=== PATIENT | female | born 1985 | race Caucasian/White ===

== ENCOUNTER 2017-10-19 14:10 | Inpatient (IN) ==
--- OUTSIDE RECORDS SUMMARY | 2017-10-19 14:14 | External Medical Summary | Continuity of Care Document ---
:1985 Author Organization [email or web address] Address [address] [place], [place] [id number] Phone Care Team Providers Name Role Phone Grabiel Epps MD Unavailable Unavailable Allergies, Adverse Reactions, Alerts Substance Reaction Severity Status No Known Drug Allergies Unknown Active Medications Medication Instructions Dosage Effective Dates Status Comments (start - stop) Vitamin take 1 tablet by Not Available - Active tablet oral route every day Prometrium 200 mg insert 1 tablet - No Longer capsule into the vagina 3 Active times daily until 12 weeks of pregnacy Problems Condition Effective Dates (start - stop) Clinical Status Complete or unsp spontaneous - without complication Complete or unsp spontaneous - without complication Pap Smear Screening, Cervix - Encounter for test, result unknown Irregular Menses Personal history of comp of preg, chldbrth and the puerp 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 14 weeks gestation of - Threatened 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 Pap Smear Screening, Cervix Encounter for test, result unknown Encounter for test, result - unknown Active Procedures Procedure Date Office/outpatient visit,est, low HCG, Quantitative Results Test Name Date and Time Measure Units Reference Range Abnormal Flag Comments Panel Description: Choriogonadotropin.beta subunit [Units/volume] in Serum or Plasma HCG, TOTAL, QN 15:16:00 174 mIU/mL H Reference RangeNon or premenopausal <5Postmenopausal <10 Values from different assay methods may vary.The use of this assay to monitor or to diagnose patients with cancer or any condition unrelatedto has not been cleared or approved bythe FDA or the deliverer pharmacy of the assay.REPORT COMMENT:FASTING:NOAN UPDATE OR CORRECTION HAS BEEN MADE TO NAMETest performed at [facility] [id number] [place] [address]Zezaituq: ADAN ASHER DO,MPH Advance Directives Directive Yes / No Effective Date File Name Unknown Encounters Encounter Practice Location Reason(s) Diagnoses Date Provider Care Team Description For Visit Members Umesh [place] Encounter for Feb- Sobbing Referring In Women test, [place]. Provider: Basilio HOLLIDAY, result unknown 7 [address] [facility] G, [address], [address] [place], [place], [address], [id number], [address], [place], [address]. [place], tel:+ tel:[phone], [phone], [place]. tel: [phone] Umesh [place] Encounter for Oct-1 Sobbing In Womens test, 0 [place]. Basilio HOLLIDAY, result unknown 7 700 [facility] [address], [place], [place], [address] [id number], [address], [place], tel:[phone] [place], [phone], [place]. tel:[phone] Office/outpa Umesh Frazier generic Encounter for Oct-0 Sobbing Referring tient In Womens (chief test, [place]. Provider: visit,est, Basilio HOLLIDAY, complaint) result unknown 7 700 Tanya low [address] [facility] G, [address], [address] [place], [place], [address], [id number], [address], [place], [address]. [place], tel:[phone] tel:[phone] [place], [id number], [place]. tel: [phone] Umesh Frazier Recurrent Jerardo-2 Garcia In Womens loss Lois. Basilio HOLLIDAY, 7 700 [address], [place], [address], [id number], [place], [place], tel:+ [phone] , [place]. tel:[phone] [facility] [place] Complete or unsp Feb-1 Garcia Referring In Womens spontaneous 3-201 Lois. Provider: Basilio HOLLIDAY, without 7 [address] PO Box complicationCompl [facility], 1522, ete or unsp [address], spontaneous [place], without [address], [place], [id number], [place], [address]. [place], tel:+ tel:[phone] , [place]. tel:[phone] [facility] [place] Complete or unsp Feb-1 Garcia Referring In Womens Ultrasound spontaneous -201 Lois. Provider: Basilio HOLLIDAY, without 7 700 Tanya PO Box [id number] [facility], 1522, weeks gestation [address], of [place], [address], [place], [id number], [place], [address]. [place], tel:+ tel:[phone] , [place]. tel: [phone] [facility] [place] Threatened Feb-0 Garcia Referring In Womens 7-201 Lois. Provider: Basilio HOLLIDAY, 7 [address] Box [facility], [address], [address] [place], [place], [address], [place], [id number], [place], [address]. [place], tel:+ tel:+ [phone] , [place]. tel:[phone] [facility] [place] Irregular Feb-0 Garcia Referring In Womens MensesPersonal 3-201 Lois. Provider: Basilio HOLLIDAY, history of comp 7 700 [address]anya PO Box of preg, chldbrth [facility], 1522, and the puerp Center [address] [place], [place], [address], [place], [id number], [place], [address]. [place], tel: tel: [phone] , [place]. 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 Provider: Health MG, (routine) w/o abn 6 700 Tanya PO Box [facility] [place] [facility], [address], Screening, [address], CervixPap Smear , [place], [place], Screening, Cervix [address], [place], [id number], [place], [address]. [place], tel: tel:[phone] , [place]. tel: [phone] Umesh [place] Dec- Darrian Referring In Womens 7-201 Cassia. Provider: Basilio HOLLIDAY, 4 700 [address] PO Box Medical [facility], Center [address], [address], [facility], [address], [place] [id number], [facility], [place], tel:[phone] [place], , [place]. [id number]. tel: tel: [phone] Umesh [place] Mar- [place] Referring In Womens 8-201 Gracy. Provider: Basilio HOLLIDAY, 4 700 [address] PO Box Medical [facility] 1522, Center [address], [address], [facility], [address], [place] [id number], [facility], [place], tel:[phone] [place], , [place]. [id number]. tel: tel: [phone] Umesh [place] Dec-0 [place] In Womens 6-201 Gracy. Health MG, 2 700 [address] Medical [address], [facility] [place], [address], [id number], [place], [place], tel:[phone] , [place]. tel: [phone] Umesh [place] Dec-0 [place] In Womens 8-201 Gracy. [facility] [place], 1 700 [facility] [address], [place] [address], [place], [address], [id number], [place], [place], tel:[phone] , [place]. tel: [phone] Family History Family Member Diagnosis Age At Onset Paternal Grandmother Cancer, breast Maternal Grandmother Cancer, breast Immunizations Vaccine Date Status Comments Influenza, injectable, completed Source: New Immunization Record quadrivalent, preservative free, 3 yrs or older Tdap completed Source: New Immunization Record Payers Payer name Insurance type Covered republican ID Authorization(s) [employer] [place] [id number] [employer] [place] [id number] [employer] [place] [id number] Social History Type Description Quantity Date Captured Alcohol Use Details No Caffeine Use Details Unknown Tobacco Use Status Never smoked tobacco Smoking Status Never smoker Vital Signs Date / Height Weight BMI Pulse Blood Temperature Respiratory Body Head BMI Time: Rate Pressure Rate Surface Circumference percentile Area 134.70 2017 lbs 2:52 PM Chief Complaint And Reason For Visit Unknown Chief Complaint And Reason For Visit Reason For Referral Reason For Referral Unknown Plan Of Care Date Type Action Status Appointment Bhumika Ghotra BOOKED Future Order: Radiology Order Ultrasound OB, Transvaginal ([id number] ) Ordered Date Type Problem Goal Intervention Status Start Date Unknown. History Of Present Illness Encounter Date Complaint History Of Present Illness generic 31 y/o with history of 1st trimesters loss reports for confirmation of . Was planning and has been on PNV. Denies pain or bleeding. Has used vaginal progesterone in past pregnancies to support and prevent early loss. Denies N/V, Constipation or Diarrhea. Denies Dysuria. Functional Status Encounter Date Functional Assessment Cognitive Assessment Unknown Medications Administered Medication Instructions Dosage Effective Dates (start - stop) Status Comments Drug Treatment Unknown Instructions Date Instruction Additional Information Unknown
--- OUTSIDE RECORDS SUMMARY | 2017-10-19 14:14 | External Medical Summary | Continuity of Care Document ---
:1985 Author Organization [facility] Address [address] [place], [place] [id number] Phone Care Team Providers Name Role Phone Grabiel Epps MD Unavailable Unavailable Allergies, Adverse Reactions, Alerts Substance Reaction Severity Status No Known Drug Allergies Unknown Active Medications Medication Instructions Dosage Effective Dates Status Comments (start - stop) Vitamin take 1 tablet by Not Available - Active tablet oral route every day aspirin 81 mg chew 1 tablet by 81 MG - Active chewable tablet oral route every day Unisom - Active (doxylamine) 25 mg tablet Problems Condition Effective Dates (start - stop) Clinical Status Complete or unsp spontaneous - without complication Complete or unsp spontaneous - without complication Pap Smear Screening, Cervix - Suprvsn of preg w poor reprodctv or - obstet hx, second tri Supervision of other high risk - pregnancies, second trimester Maternal care for oth - abnormality and damage, unsp 27 weeks gestation of - Suprvsn of preg w poor reprodctv or - obstet hx, second tri Supervision of other high risk - pregnancies, second trimester Preg care for patient w recurrent preg - loss, unsp trimester 15 weeks gestation of - Suprvsn of preg w poor reprodctv or - obstet hx, second tri Supervision of other high risk - pregnancies, second trimester Preg care for patient w recurrent preg - loss, unsp trimester 22 weeks gestation of - Irregular Menses Personal history of comp of preg, chldbrth and the puerp 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 14 weeks gestation of - Suprvsn of preg w poor reprodctv or - obstet hx, first tri Supervision of other high risk - pregnancies, first trimester Preg care for patient w recurrent preg - loss, unsp trimester 11 weeks gestation of - Suprvsn of preg w poor reprodctv or - obstet hx, second tri Supervision of other high risk - pregnancies, second trimester Preg care for patient w recurrent preg - loss, unsp trimester 18 weeks gestation of - Suprvsn of preg w poor reprodctv or - obstet hx, second tri Supervision of other high risk - pregnancies, second trimester 27 weeks gestation of - Suprvsn of preg w poor reprodctv or - obstet hx, third tri Supervision of other high risk - pregnancies, third trimester Low weight gain in , third - trimester 29 weeks gestation of - Suprvsn of preg w poor reprodctv or - obstet hx, third tri Supervision of other high risk - pregnancies, third trimester Low weight gain in , third - trimester Preg care for patient w recurrent preg - loss, unsp trimester Suprvsn of preg w poor reprodctv or - obstet history, unsp tri Supervision of other high risk - pregnancies, first trimester Preg care for patient w recurrent preg - loss, unsp trimester Less than 8 weeks gestation of - Supervision of other high risk - pregnancies, second trimester Preg care for patient w recurrent preg - loss, unsp trimester 18 weeks gestation of - Supervision of other high risk - pregnancies, third trimester Maternal care for oth - abnormality and damage, unsp Matern care for oth or susp poor fetl - grth, third tri, unsp 30 weeks gestation of - Threatened 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) w/o abn findings Pap Smear Screening, Cervix Encounter for test, result unknown Encounter for test, result unknown Encounter for test, result - unknown Active Procedures Procedure Date Ultrasnd preg uterus, flwup/repeat Echo exam of heart Doppler color flow mapping Results Test Name Date and Time Measure Units Reference Range Abnormal Flag Comments Unknown Advance Directives Directive Yes / No Effective Date File Name Unknown Encounters Encounter Practice Location Reason(s) Diagnoses Date Provider Care Team Description For Visit [facility] Ellisvsn of preg w Aug- Sobbing Referring In Womens poor reprodctv or 2-201 Stanley. Provider: Basilio HOLLIDAY, obstet hx, third [address] Box triSupervision of [facility], 1522, other high risk Center [address], pregnancies, [place], [place], third [address], , trimesterLow 120[place], [address]. [place] weight gain in [place], tel: tel: , third [place], [phone] trimesterPreg [address], care for patient [place]. w recurrent preg tel: loss, unsp [phone] trimester [facility] Supervision of Aug- Sobbing Referring In Womens Ultrasound other high risk Stanley. Provider: Basilio HOLLIDAY, pregnancies, 8 700 Tanya PO Box third [facility], 1522, trimesterMaternal Center [address], care [place], abnormality [address], [id number], and damage, 120[place], [address]. [place] unspMatern care [place], tel: tel: for oth or susp [place], [phone] poor fetl grth, [address], third tri, unsp30 [place]. weeks gestation tel:[phone] of [phone] [facility] Suprvsn of preg w Apr-0 Sobbing Referring In Womens poor reprodctv or 6 Reggie. Provider: Basilio HOLLIDAY, obstet hx, third 8 700 Tanya PO Box triSupervision of [facility], 1522, other high risk Center [address], pregnancies, [address], [place], [place], third [address], [id number], [place] 120[place], [address]. [place] weight gain in [place], tel:+ tel: , third [place], [phone] [id number] weeks [address], gestation of [place]. tel: [phone] [facility] Suprvsn of preg w Mar-2 Sobbing Referring In Womens poor reprodctv or 2 Reggie. Provider: horacio Penaet hx, second 8 700 [address] PO Box triSupervision of [facility], 1522, other high risk Center [address], pregnancies, [address], [place], [place], second [address], [id number], [id number] weeks 120, [place], [address]. [place] gestation of [place], tel:+ tel: [place], [phone], [place]. tel: [phone] [facility] Suprvsn of preg w Mar-2 Sobbing Referring In Womens Ultrasound poor reprodctv or Reggie. Provider: Basilio HOLLIDAY obstet hx, second 8 700 Tanya PO Box triSupervision of [facility], 1522, other high risk Center [address], pregnancies, [address], [place], second [address], [id number], trimester[place] 120[place], [address]. [place] care for asher [place], tel:+ tel:+2 abnormality [place], [phone] and damage, [address], unsp27 weeks [place]. gestation of tel: [phone] [facility] Suprvsn of preg w Feb-1 Sobbing Referring In Womens poor reprodctv or 9 Stanley. Provider: Basilio HOLLIDAY, obstet hx, second 8 700 Tanya PO Box triSupervision of [facility], 1522, other high risk Center [address], pregnancies, [address], [place], second [address], [id number], trimesterPreg 120[place], [address]. [place] care for patient [place], tel:+ tel:[phone] w recurrent preg [place], [phone] 657984 loss, unsp [address], [id number] weeks [place]. gestation of tel: [phone] [facility] Supervision of Sobbing Referring In Womens other high risk Stanley. Provider: Basilio HOLLIDAY, pregnancies, 8 [address] PO Box second Medical [facility], 1522, trimesterPreg Center [address], care for patient Kayce [place], [place], w recurrent preg [address], [id number], loss, unsp 120[place], [address]. [place] [id number] weeks [place], tel:+ tel:+3162 gestation of [place], [phone] [address], [place]. tel: [phone] [facility] Suprvsn of preg w Sobbing Referring In Womens Ultrasound poor reprodctv or Stanley. Provider: Basilio HOLLIDAY, obstet hx, second 8 700 [address]anya PO Box triSupervision of [facility], 1522, other high risk Center [address], pregnancies, Drive, [place], [place], second [address], [id number], trimesterPreg 120[place], [address]. [place] care for patient [place], tel:+ tel:+[phone] w recurrent preg [place], [phone] loss, unsp [address], weeks [place]. gestation of tel: [phone] [facility] Suprvsn of preg w Sobbing Referring In Womens poor reprodctv or Stanley. Provider: Basilio HOLLIDAY, obstet hx, second 7 700 Tanya PO Box triSupervision of [facility], 1522, other high risk Center [address], pregnancies, Drive, [place], second [address], [id number], trimesterPreg 120[place], [address]. [place] care for patient [place], tel:+ tel:+3162 w recurrent preg [place], [phone] 916238 loss, unsp [address], [id number] weeks [place]. gestation of tel:+06-25 [phone] [facility] Suprvsn of preg w Nov-3 Sobbing Referring In Womens poor reprodctv or 0-201 Reggie. Provider: Basilio HOLLIDYA, obstet hx, first 7 700 Tanya PO Box triSupervision of [facility] G, 1522, other high risk Center [address], pregnancies, Drive, [place], [place], first [address], [id number], trimesterPreg 120[place], [address]. [place] care for patient [place], tel:+ tel:+[phone] w recurrent preg [place], [phone] 847010 loss, unsp [address], [id number] weeks [place]. gestation of tel:[phone] [facility] Suprvsn of preg w Nov-0 Sobbing Referring In Womens poor reprodctv or 6-201 Reggie. Provider: Basilio HOLLIDAY, obstet history, 7 700 [facility] Box unsp Medical Sob[place] L, 1522, triSupervision of Center [address], other high risk Drive, Medical [place], pregnancies, Suite Center [id number], first [address], Drive [place] trimesterPreg [place], [address], tel:+2 care for patient [place], [place] preg [address], [place], [address]. loss, unsp [place]. tel: trimesterLess tel: [phone] than 8 weeks [phone] gestation of [facility] Encounter for Oct-1 Sobbing Referring In Womens test, 1-201 Stanley. Provider: Basilio HOLLIDAY, result unknown 7 700 [facility] PO Box Medical [place] G, 1522, Center [address], [address], [place], [place], [address], [id number], 120, [place], [address]. [place], tel:+ tel:+3162 [place], [phone], [place]. tel: [phone] Umesh [place] Encounter for Oct-1 Sobbing In Womens test, 0-201 Reggie. Basilio HOLLIDAY, result unknown 7 700 PO Box Medical 1522, Center [place], [place], Suite [id number], 120, [place], [place]: [place], [address], [place]. tel: [phone] [facility] Encounter for Oct-0 Sobbing Referring In Womens test, 9-201 Reggie. Provider: Basilio HOLLIDAY, result unknown 7 700 Tanya PO Box [facility], 1522, Center [address] [facility], [place], [address], [id number], 120, [place], [address]. [place], tel: tel: [place], [phone], [place]. tel: [phone] [facility] Recurrent Jerardo-2 Garcia In Womens loss 9-201 Lois. Basilio HOLLIDAY, 7 700 PO Box Medical 1522, [facility], Laith Santiago, 120, , [place], [place], tel:[phone] , [place]. tel: [phone] [facility] Complete or unsp Feb-1 Garcia Referring In Womens spontaneous 3-201 Lois. Provider: Basilio HOLLIDAY, without 7 700 [address] PO Box complicationCompl [facility], 1522, ete or unsp Center [address], spontaneous Laith [place], without 120, [address], , [place], [address]. [place], tel: tel: [phone] , [place]. tel: [phone] [facility] Complete or unsp Feb-1 Garcia Referring In Womens Ultrasound spontaneous 3-201 Lois. Provider: Basilio HOLLIDAY, without 7 700 Tanya PO Box [id number] [facility], 1522, weeks gestation Center [address], of Laith [place], 120, [address], [id number], [place], [address]. [place], tel: tel:[phone] , [place]. tel: [phone] [facility] Threatened Feb-0 Garcia Referring In Womens 7 Lois. Provider: Basilio HOLLIDAY, 7 700 Tanya PO Box [facility], 1522, Center [address], CHARLES [place], 120, [address], , [place], [address]. [place], tel: tel: [phone] , [place]. tel: [phone] Umesh [place] Irregular Feb-0 Garcia Referring In Womens MensesPersonal 3- Lois. Provider: Basilio HOLLIDAY, history of comp 7 700 Tanya PO Box of preg, [facility], 1522, and the puerp Center [address], CHARLES Nelson, 120, [address], [id number], [place], [address]. [place], tel: tel:[phone] , [place]. tel: [phone] [facility] Encntr for ob gyn Feb- Sagastume Referring In Womens exam (general) Carrie. Provider: Basilio HOLLIDAY, (routine) w/o abn 6 700 [address]anya PO Box findingsPap Smear [facility], 1522, Screening, Center [address], CervixPap Smear , Laith Dev[place], Screening, Cervix [address], [address], , [place], [address]. [place], tel:+ tel: [phone] , [place]. tel: [phone] [facility] Dec- Darrian Referring In Womens Cassia. Provider: Basilio HOLLIDAY, 4 700 Gracy PO Box [facility] 1522, Center S, [address], [facility], 120, Center , Freddie [facility] 120, [place] SOTO, tel: [phone] [place], , [place]. [id number]. tel: tel: [phone] Umesh [place] Holdeman Referring In Womens 8-201 Gracy. Provider: Health PA, 4 700 Gracy PO Box Medical [place] 1522, Center S, [address], [facility] Medical [place], 120, [address] [id number], [place], [facility] 120, [place], [place], tel: [phone] [place], , [place]. [id number]. tel: tel: [phone] Umesh Fraizer Apr- Holdeman In Womens 6-201 Gracy. Health PA, 2 700 [address] Medical [address], [address], [facility] [place], 120, [id number], [place], [place], tel:[phone] , [place]. tel: [phone] Umesh [place] Dec- Holdeman In Womens 8-201 Gracy. Health PA, 1 700 Box Medical [address], [address], [facility] [place], 120, [id number], [place], [place], tel: [phone] , [place]. tel: [phone] Family History Family Member Diagnosis Age At Onset Paternal Grandmother Cancer, breast Maternal Grandmother Cancer, breast Immunizations Vaccine Date Status Comments Tdap completed Source: New Immunization Record Influenza, injectable, completed Source: New Immunization Record quadrivalent, preservative free, 3 yrs or older Influenza, injectable, completed Source: New Immunization Record quadrivalent, preservative free, 3 yrs or older Tdap completed Source: New Immunization Record Payers Payer name Insurance type Covered alliance party ID Authorization(s) [place] [id number] [place] [place] [id number] [place] [id number] [place] [place] [id number] [place] [id number] Social History Type Description Quantity Date Captured Unknown Vital Signs Date / Height Weight BMI Pulse Blood Temperature Respiratory Body Head BMI Time: Rate Pressure Rate Surface Circumference percentile Area Unknown Chief Complaint And Reason For Visit Unknown Chief Complaint And Reason For Visit Reason For Referral Reason For Referral Unknown Plan Of Care Date Type Action Status Appointment Bhumika Ghotra BOOKED Appointment Bhumika Ghotra BOOKED Appointment Bhumika Ghotra BOOKED Appointment Bhumika Ghotra [facility] [place] Future Order: Radiology Order Ultrasound OB Follow-up ([id number]) Ordered Future Order: Radiology Order Ultrasound OB, Transvaginal ([id number] ) Ordered Future Order: Radiology Order Complete OB Ultrasound > 14 Ordered Weeks ([id number]) Future Order: Lab Order Pap Smear With HPV Reflex If ASCUS Ordered ([id number]) Future Order: Radiology Order Ultrasound OB Follow-up ([id number]) Ordered Future Order: Radiology Order Biophysical Profile without NST Ordered ([id number]) Date Type Problem Goal Intervention Status Start Date Unknown. History Of Present Illness Encounter Date Complaint History Of Present Illness This patient has no known history of present illness Functional Status Encounter Date Functional Assessment Cognitive Assessment Unknown Medications Administered Medication Instructions Dosage Effective Dates (start - stop) Status Comments Drug Treatment Unknown Instructions Date Instruction Additional Information HIV and other routine tests risk factors identified by history anticipated course of care nutrition and weight gain counseling, special diet toxoplasmosis precautions (cats / raw meat) sexual activity exercise indications for ultrasound influenza vaccine environmental / work hazards travel tobacco (ask, advise, assess, assist and arrange) alcohol illicit / recreational drugs use of any medications (including supplements, vitamins, herbs, OTC drugs) smoking counseling domestic violence seat belt use childbirth classes / hospital facilities hospital registration genetic testing new ob handbook risks
--- OUTSIDE RECORDS SUMMARY | 2017-10-19 14:14 | External Medical Summary | Continuity of Care Document ---
:1985 Author Organization [facility] Address [address] [place], [place] [address] Phone Care Team Providers Name Role Phone Grabiel Epps MD Unavailable Unavailable Allergies, Adverse Reactions, Alerts Substance Reaction Severity Status No Known Drug Allergies Unknown Active Medications Medication Instructions Dosage Effective Dates Status Comments (start - stop) Vitamin take 1 tablet by Not Available - Active tablet oral route every day Problems Condition Effective Dates (start - stop) Clinical Status Complete or unsp spontaneous - without complication Complete or unsp spontaneous - without complication Pap Smear Screening, Cervix - Encounter for test, result unknown Irregular Menses Personal history of comp of preg, chldbrth and the puerp 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 14 weeks gestation of - Threatened 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 Provider: visit,est, Health PA, complaint) result unknown 7 700 [address]anya low PO Box Medical [place], 1522, Center [address], [address], [place], [place], [address], [id number], 120, [place], [address]. [place], tel: tel: [place], [phone], [place]. tel: [phone] [facility] Recurrent Jerardo-2 Garcia In Womens loss 9-201 Lois. Health MG, 7 700 [address], Center [place], , Laith SOTO, 120, [id number], [place], [place], tel: [phone] , [place]. tel: [phone] [facility] Complete or unsp Feb-1 Garcia Referring In Womens spontaneous 3-201 Lois. Provider: Health MG, without 7 700 Tanya PO Box complicationCompl Medical [place], 1522, ete or unsp Center [address], [facility] , CHARLES Nelson, without 120, [place], , [place], [address]. [place], tel: tel:[phone] , [place]. tel: [phone] [facility] Complete or unsp Feb-1 Garcia Referring In Womens Ultrasound spontaneous 3-201 Lois. Provider: Health MG, without 7 700 Tanya PO Box [id number] Medical [place], 1522, weeks gestation Center [address], of La[place], 120, [place], , [place], [address]. [place], tel: tel: [phone] , [place]. tel: [phone] [facility] Threatened Feb-0 Garcia Referring In Womens 7-201 Lois. Provider: Health MG, 7 700 Tanya PO Box Medical [place], 1522, Center [address], [place], 120, [place], [id number], [place], [address]. [place], tel: tel:[phone] , [place]. tel: [phone] Umesh [place] Irregular Jun- Garcia Referring In Womens MensesPersonal 3 Lois. Provider: Basilio HOLLIDAY, history of comp 7 700 [address] PO Box of preg, chldbrth Medical [place], 1522, and the puerp Center [address], Laith Devries [place], 120, [place], [id number], [place], [address]. [place], tel:+ tel: [phone] , [place]. 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 Provider: Basilio HOLLIDAY, (routine) w/o abn 6 700 [address]anya PO Box findingsPap Smear [facility], 1522, Screening, Center [address], CervixPap Smear , Laith Devries [place], Screening, Cervix [address], [place], [id number], [place], [address]. [place], tel: tel: [phone] , [place]. tel: [phone] Umesh [place] Darrian Referring In Womens - Cassia. Provider: Basilio HOLLIDAY, 4 700 Gracy PO Box Medical [place] 1522, Center S, [address], [facility], 120, Center [id number], [place] [facility] 120, [place] SOTO, tel:[phone] [place], , [place]. [id number]. tel: tel: [phone] Umesh [place] Supriya Referring In Womens 8- Gracy. Provider: Basilio HOLLIDAY, 4 700 Gracy PO Box Medical [place] 1522, Center S, [address], [facility], 120, Center [id number], [place] La[place] 120, [place] SOTO, tel:[phone] [place], , [place]. [id number]. tel: tel: [phone] [facility] Apr- Supriya In Womens 6-201 Gracy. [facility], 2 700 [address] Medical [address], [place] [address], [facility] [place], 120, [id number], [facility] [place], tel:[phone] , [place]. tel: [phone] Umesh [place] Dec-0 Supriya In Womens 8-201 Gracy. [facility], 1 700 [address] Medical [address], [place] [address], [facility] [place], 120, [id number], [facility] [place], tel:[phone] , [place]. tel: [phone] Family History Family Member Diagnosis Age At Onset Paternal Grandmother Cancer, breast Maternal Grandmother Cancer, breast Immunizations Vaccine Date Status Comments Influenza, injectable, completed Source: New Immunization Record quadrivalent, preservative free, 3 yrs or older Tdap completed Source: New Immunization Record Payers Payer name Insurance type Covered libertarian ID Authorization(s) BCBS Out Of State [id number] BCBS Out Of [place] [id number] BCBS Out Of [place] [id number] Social History Type Description Quantity Date Captured Alcohol Use Details No Caffeine Use Details Unknown Tobacco Use Status Never smoked tobacco Smoking Status Never smoker Vital Signs Date / Height Weight BMI Pulse Blood Temperature Respiratory Body Head BMI Time: Rate Pressure Rate Surface Circumference percentile Area 134.70 -2017 lbs 2:52 PM Chief Complaint And Reason For Visit Most recent encounter only, dated '03/03/2017 14:45'. generic (chief complaint). Description: 31 y/o with history of 1st trimesters loss reports for confirmation of . Was planning and has been on PNV. Denies pain or bleeding. Has used vaginal progesterone in past pregnancies to support and prevent early loss. Denies N/V, Constipation or Diarrhea. Denies Dysuria. Reason For Referral Reason For Referral Unknown Plan Of Care Date Type Action Status Future Order: Radiology Order Ultrasound OB, Transvaginal ([id number] ) Ordered Future Order: Lab Order Pap Smear With HPV Reflex If ASCUS Ordered ([id number]) Date Type Problem Goal Intervention Status Start [...]
--- OUTSIDE RECORDS SUMMARY | 2017-10-19 14:15 | External Medical Summary | Continuity of Care Document ---
:1985 Author Organization [email or web address] Address [address] [place], [place] [id number] Phone Care Team Providers Name Role Phone Grabiel Epps MD Unavailable Unavailable Allergies, Adverse Reactions, Alerts Substance Reaction Severity Status No Known Drug Allergies Unknown Active Medications Medication Instructions Dosage Effective Dates Status Comments (start - stop) aspirin 81 mg chew 1 tablet by 81 MG - Active chewable tablet oral route every day Vitamin take 1 tablet by Not Available - Active tablet oral route every day Problems Condition Effective Dates (start - stop) Clinical Status Complete or unsp spontaneous - without complication Complete or unsp spontaneous - without complication Pap Smear Screening, Cervix - Suprvsn of preg w poor reprodctv or - obstet hx, second tri 15 weeks gestation of - Supervision of other high risk - pregnancies, second trimester Preg care for patient w recurrent preg - loss, unsp trimester Irregular Menses Personal history of comp of [...] Less than 8 weeks gestation of - Threatened 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 Provider: Basilio HOLLIDAY, horacioet hx, second 7 700 [address] tri15 weeks [facility], 1522, gestation of Center [address], pregnancySupervis [place], ion of other high [address], [id number], risk pregnancies, [address], [place], [address]. [place] second [place], tel:+ tel: trimesterPreg [place], [phone] care for patient [address], w recurrent preg [place]. loss, unsp tel: trimester [phone] [facility] Olveran of preg w Mar-3 Sobbing Referring In Womens poor reprodctv or 0-201 Reggie. Provider: Basilio HOLLIDAY obstet hx, first 7 700 [address] triSupervision of [facility], 1522, other high risk Center [address], pregnancies, [place], [place], first [address], [id number], trimesterPreg 120, [place], [address]. [place] care for patient [place], tel:[phone] tel:+[phone] w recurrent preg [place], [id number] loss, unsp [id number], [id number] weeks [place]. gestation of tel:[phone] [facility] Suprvsn of preg w Nov-0 Sobbing Referring In Womens poor reprodctv or [place]. Provider: Basilio HOLLIDAY, obstet history, 7 700 [facility] unsp Medical [place], 1522, triSupervision of Center [address] [place] [address], other [address] risk [address], Medical [place], pregnancies, Suite Center , first [address], Drive [place] trimesterPreg [place], [address], tel:+2 care for patient [place], [place] [address], [place], [address]. loss, unsp [place]. tel: trimesterLess tel: [phone] than 8 weeks [phone] gestation of Associates [facility] Encounter for Oct-1 Sobbing Referring In Womens test, [place]. Provider: Basilio HOLLIDAY, result unknown 7 700 [facility] G, 1522, Center [address] [place], [place], [address], , [address], [place], [address]. [place], tel: tel: [place], [phone], [place]. tel: [phone] Umesh [place] Encounter for Oct-1 Sobbing In Womens test, 0 [place]. Basilio HOLLIDAY, result unknown 7 700 [facility] 1522, [facility], [place], Suite , 120, [place], tel:+ [place], [address], [place]. tel: [phone] Umesh [place] Encounter for Oct-0 Sobbing Referring In Womens test, [place]. Provider: Basilio HOLLIDAY, result unknown 7 700 [facility] G, 1522, Center [address] [place], [place], [address], [id number], 120, [place], [address]. [place], tel:+ tel:[phone] [place], [id number], [place]. tel: [phone] Umseh [place] Recurrent Jerardo-2 Garcia In Womens loss Lois. Basilio HOLLIDAY, 7 700 [facility] 1522, [facility], , [facility] [place], 120, [id number], [place], tel: [phone] , [place]. tel: [phone] Associates [facility] Complete or unsp Feb-1 Garcia Referring In Womens spontaneous 3-201 Lois. Provider: Basilio HOLLIDAY, without 7 700 [address] PO Box complicationCompl [facility], 1522, ete or unsp Center [address], spontaneous Laith [place], without [address], [address], [id number], [place], [address]. [place], tel:+ tel: [phone] , [place]. tel: [phone] Associates [facility] Complete or unsp Feb-1 Garcia Referring In Womens Ultrasound spontaneous - Lois. Provider: Basilio HOLLIDAY, without 7 700 [address] PO Box [id number] [facility], 1522, weeks gestation Center [address], of Laith [place], [address], [address], , [place], [address]. [place], tel: tel:[phone] , [place]. tel: [phone] Associates [facility] Threatened Feb-0 Garcia Referring In Womens 7-201 Lois. Provider: Basilio HOLLIDAY, 7 700 [address] PO Box [facility], 1522, Center [address] [place], [place], [address], [address], , [place], [address]. [place], tel: tel: [phone] , [place]. tel: [phone] [facility] Irregular Feb-0 Garcia Referring In Womens MensesPersonal 3-201 Lois. Provider: Basilio HOLLIDAY, history of comp 7 700 [address] PO Box of preg, chldbrth [facility], 1522, and the puerp Center [address] [place], [place], [address], [address], , [place], [address]. [place], tel: tel:[phone] , [place]. 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 Provider: Basilio HOLLIDAY, (routine) w/o abn 6 700 [address] PO Box findingsPap Smear Medical [place], 1522, Screening, Center [address], CervixPap Smear , [facility], [place], Screening, Cervix [address], [address], [id number], [place], [address]. [place], tel: tel: [phone] , [place]. tel: [phone] Umesh [place] Apr- Darrian Referring In Womens 7- Cassia. Provider: Basilio HOLLIDAY, 4 700 [address] Medical [place] [address], Center S, [address], [facility] [place], 120, [place] [id number], [place], [facility] 120, [place], tel: [phone] [place], , [place]. [id number]. tel: tel: [phone] Umesh [place] Mar- Supriya Referring In Womens 8-201 Gracy. Provider: Basilio HOLLIDAY, 4 700 [address] Medical [place] [address]22, Center S, [address], [facility] [place], 120, Center [id number], Freddie [facility] 120, [place], tel: [phone] [place], , [place]. [id number]. tel: tel: [phone] Umesh [place] Dec-0 [place] In Womens 6-201 [place]. Health [place], 2 700 [address], [place] [address], [facility] [place], 120, [id number], [place], CHARLES, tel: [phone] , [place]. tel: [phone] Umesh [place] Aug-0 [place] In Womens 8-201 [place]. Basilio HOLLIDAY, 1 700 [address], [place] [address], [facility] [place], 120, [id number], [facility], tel:[phone] , . tel:-[phone] Family History Family Member Diagnosis Age At [...] party ID Authorization(s) [employer] [place] [id number] [employer] [place] [id number] [employer] [place] [id number] [employer] [place] [id number] Social History Type Description Quantity Date Captured Alcohol Use Details No Caffeine Use Details Unknown Tobacco Use Status Unknown Smoking Status Never smoker Vital Signs Date / Height Weight BMI Pulse Blood Temperature Respiratory Body Head BMI Time: Rate Pressure Rate Surface Circumference percentile Area 132.60 22.0 134/82 -2017 lbs 6 mm[Hg] 11:11 kg/m AM eter (2) 132.60 22.0 -2016 lbs 6 10:50 kg/m AM eter (2) Chief Complaint And Reason For Visit Unknown Chief Complaint And Reason For Visit Reason For Referral Reason For Referral Unknown Plan Of Care Date Type Action Status Appointment Bhumika Ghotra BOOKED Appointment Bhumika Ghotra BOOKED Future Order: Radiology Order Ultrasound OB, Transvaginal ([id number] ) Ordered Future Order: Lab Order Pap [...]
--- OUTSIDE RECORDS SUMMARY | 2017-10-19 14:15 | External Medical Summary | Continuity of Care Document ---
:1985 Author Organization [facility] Address [address] [place], [place] [id number] Phone Care Team Providers Name Role Phone [...] without complication Pap Smear Screening, Cervix - Supervision of other high risk - pregnancies, third trimester Maternal care for oth - abnormality and damage, unsp Matern care for oth or susp poor fetl - grth, third tri, unsp 32 weeks gestation of - Suprvsn of preg [...] other high risk - pregnancies, third trimester Preg care for patient w recurrent preg - loss, unsp trimester Matern care for oth or susp poor fetl - grth, third tri, unsp Suprvsn of preg w poor reprodctv or - obstet hx, third tri Supervision of other high risk - pregnancies, third trimester Low weight gain in , third - trimester 31 weeks gestation of - Suprvsn of preg w poor reprodctv or - obstet hx, third tri Maternal care for oth - abnormality and damage, unsp Matern care for oth or susp poor fetl - grth, third tri, unsp 34 weeks gestation of - Suprvsn of preg [...] poor fetl - grth, third tri, unsp 33 weeks gestation of - Supervision of other high risk - pregnancies, third trimester Maternal care for oth - abnormality and damage, unsp Matern care for oth or susp poor fetl - grth, third tri, unsp 31 weeks gestation of - Supervision of other high risk - pregnancies, third trimester Preg care for patient w recurrent preg - loss, unsp trimester Previous Low Transverse - Matern care for oth or susp poor fetl - grth, third tri, unsp Supervision of other high risk - pregnancies, third trimester Maternal care for oth - abnormality and damage, unsp Matern care for oth or susp poor fetl - grth, third tri, unsp 30 weeks gestation of - Supervision of other high risk - pregnancies, third trimester Low weight gain in , third - trimester Preg care for patient w recurrent preg - loss, unsp trimester Previous Low Transverse - Threatened Encntr for aix administrator exam (general) - (routine) w/o abn findings Pap Smear Screening, Cervix Encounter for test, result unknown Encounter for test, result unknown Encounter for test, result - unknown Active Procedures Procedure Date biophys prfl w/o nstress test Results Test Name Date and Time Measure Units Reference Range Abnormal Flag Comments Unknown Advance Directives Directive Yes / No Effective Date File Name Unknown Encounters Encounter Practice Location Reason(s) Diagnoses Date Provider Care Team Description For Visit [facility] Supervision of Sobbing Referring In Womens other high risk 0-201 Reggie. Provider: Basilio HOLLIDAY, pregnancies, [address] third Medical [facility], 1522, trimesterLow Center [address], weight gain in Drive, [place], [place], , third [address], , trimesterPreg 120, [place], [address]. [place] care for patient Freddie, tel: tel:2 w recurrent preg [place], [phone] loss, unsp [address], trimesterPrevious [place]. Low Transverse tel: [phone] [facility] Ellisvsn of preg w Sobbing Referring In Womens Ultrasound poor reprodctv or 0-201 Reggie. Provider: Basilio HOLLIDAY, obstet hx, third 8 700 [address] triMaternal care Medical [facility], 1522, for oth Center [address], [place], damage, [address], , unspMatern care 120[place], [address]. [place] for oth or susp Frazier, tel: tel: poor fetl grth, [place], [phone] third tri, unsp34 [address], weeks gestation [place]. of tel: [phone] Umesh Frazier Supervision of September-0 Sobbing Referring In Womens other high risk Sarver. Provider: Basilio PA, pregnancies, 8 700 [address] third Medical [facility], 1522, trimesterPreg Center [address], care for patient Pasquale, [place], w recurrent preg [address], [id number], loss, unsp 120, [place], [address]. [place] trimesterPrevious Frazier, tel: tel: [place], [phone] C-SectionMatern [address], care for oth or [place]. susp poor fetl tel: grth, third tri, [phone] [facility] Umesh Frazier Supervision of September-0 Sobbing Referring In Womens Ultrasound other high risk Sarver. Provider: Basilio HOLLIDAY, pregnancies, 8 700 [address] third Medical [facility], 1522, trimesterMaternal Center [address], care for oth [address], [place], abnormality [address], [id number], and damage, 120[place], [address]. [place] unspMatern care Freddie, tel: tel: for oth or susp [place], [phone] poor fetl grth, [address], third tri, unsp33 [place]. weeks gestation tel: of [phone] Umesh Frazier Suprvsn of preg w Apr-2 Sobbing Referring In Womens poor reprodctv or Sarver. Provider: Basilio HOLLIDAY, obstet hx, third 8 700 [address] triSupervision of [facility], 1522, other high risk Center [address], pregnancies, Drive, [place], third [address], [id number], trimesterPreg 120[place], [address]. [place] care for patient Freddie, tel: tel: w recurrent preg [place], [phone] loss, unsp [address], trimesterMatern [place]. care for oth or tel:+06-25 susp poor fetl [phone] grth, third tri, unsp [facility] Supervision of Apr-2 Sobbing Referring In Womens Ultrasound other high risk Sarver. Provider: Basilio HOLLIDAY, pregnancies, 8 700 [address] Box third Medical [facility], 1522, trimesterMaternal Center [address], care for oth [address], [place], abnormality [address], [id number], and damage, 120[place], [address]. [place] unspMatern care Frazier, tel:+ tel:+ for oth or susp [place], [phone] poor fetl grth, [address], third tri, unsp32 [place]. weeks gestation tel:+06-25 of [phone] Umesh Frazier Suprvsn of preg w Apr-1 Sobbing Referring In Womens poor reprodctv or Sarver. Provider: Basilio HOLLIDAY, obstet hx, third 8 700 [address] triSupervision of [facility], 1522, other high risk Center [address], pregnancies, Drive, [place], third [address], [id number], [place] 120[place], [address]. [place] weight gain in Freddie, tel:+ tel:+3162 , third [place], [phone] [id number] weeks 37091, gestation of [place]. tel:[phone] Umesh Frazier Supervision of Apr-1 Sobbing Referring In Womens Ultrasound other high risk Sarver. Provider: Basilio HOLLIDAY, pregnancies, 8 700 [address]anya PO Box third Medical Cole [facility], 1522, trimesterMaternal Center [address], care for oth Drive, [place], abnormality [address], [id number], and damage, 120[place], [address]. [place] unspMatern care Freddie, tel:+316 tel:+3162 for oth or susp [place], [phone] poor fetl grth, [address], third tri, unsp31 [place]. weeks gestation tel:+31 of [phone] Umesh Frazier Suprvsn of preg w Apr-1 Sobbing Referring In Womens poor reprodctv or 2-201 Reggie. Provider: Basilio HOLLIDAY, horacioet hx, third 8 700 Tanya PO Box triSupervision of [facility], 1522, other high risk Center [address], pregnancies, Drive, [place], third [address], [id number], [place] 120[place], [address]. [place] weight gain in Freddie, tel:+ tel: , third [place], [phone] trimesterPreg [address], care for patient [place]. w recurrent preg tel:+06-25 loss, unsp [phone] trimester [facility] Supervision of Apr-1 Sobbing Referring In Womens Ultrasound other high risk 2-201 Sarver. Provider: Basilio HOLLIDAY, pregnancies, 8 700 Tanya PO Box third Medical [facility], 1522, trimesterMaternal Center [address], care for oth Drive, [place], abnormality [address], [id number], and damage, 120[place], [address]. [place] unspMatern care Freddie, tel: tel: for oth or susp [place], [phone] poor fetl grth, [address], third tri, unsp30 US. weeks gestation tel: of [phone] [facility] Suprvsn of preg w Apr-0 Sobbing Referring In Womens poor reprodctv or 6-201 Reggie. Provider: aBsilio HOLLIDAY, horacioet hx, third 8 700 [address]anya PO Box triSupervision of [facility], 1522, other high risk Center [address], pregnancies, Drive, [place], third [address], [id number], [place] 120[place], [address]. [place] weight gain in Freddie, tel:+ tel:+ , third [place], [phone] [id number] weeks 87863, gestation of [place]. tel: [phone] [facility] Suprvsn of preg w Mar-2 Sobbing Referring In Womens poor reprodctv or 2-201 Sarver. Provider: Basilio HOLLIDAY, obstet hx, second 8 700 Tanya PO Box triSupervision of [facility], 1522, other high risk Center [address], pregnancies, Drive, [place], second [address], [id number], [id number] weeks 120[place], [address]. [place] gestation of Freddie, tel:+ tel: [place], [phone] [address], [place]. tel: [phone] [facility] Suprvsn of preg w Sobbing Referring In Womens Ultrasound poor reprodctv or Sarver. Provider: Basilio HOLLIDAY, horacioet hx, second 8 700 Tanya PO Box triSupervision of [facility], 1522, other high risk Center [address], pregnancies, Drive, [place], second [address], [id number], trimesterMaternal 120[place], [address]. [place] care for oth Freddie, tel: tel: abnormality [place], [phone] 243907 and damage, [address], unsp27 weeks US. gestation of tel: [phone] [facility] Olveran of preg w Sobbing Referring In Womens poor reprodctv or Sarver. Provider: horacio Penaet hx, second 8 700 [address]anya PO Box triSupervision of [facility], 1522, other high risk Center [address], pregnancies, Drive, [place], second [address], [id number], trimesterPreg 120[place], [address]. [place] care for patient Freddie, tel: tel: w recurrent preg [place], [phone] loss, unsp [address], [id number] weeks [place]. gestation of tel: [phone] [facility] Supervision of Sobbing Referring In Womens other high risk Sarver. Provider: Basilio HOLLIDAY, pregnancies, 8 700 Tanya PO Box second Medical [facility], 1522, trimesterPreg Center [address], care for patient Drive, [place], w recurrent preg [address], [id number], loss, unsp 120[place], [address]. [place] [id number] weeks Freddie, tel:+ tel:+2 gestation of [place], [phone] 034[address], [place]. tel: [phone] [facility] Suprvsn of preg w Jann- Sobbing Referring In Womens Ultrasound poor reprodctv or 2-201 Reggie. Provider: Basilio HOLLIDAY, obstet hx, second 8 700 Tanya PO Box triSupervision of [facility], 1522, other high risk Center [address], pregnancies, Drive, [place], second [address], [id number], trimesterPreg 120[place], [address]. [place] care for patient Freddie, tel:+ tel:+3162 w recurrent preg [place], [phone] 7980[address] loss, unsp [address], [id number] weeks US. gestation of tel:+06-25 [phone] [facility] Suprvsn of preg w Apr- Sobbing Referring In Womens poor reprodctv or 8201 Reggie. Provider: Basilio HOLLIDAY, obstet hx, second 7 700 Tanya PO Box triSupervision of [facility], 1522, other high risk Center [address], pregnancies, Drive, [place], second [address], [id number], trimesterPreg 120[place], [address]. [place] care for patient Freddie, tel:+ tel:+3162 w recurrent preg [place], [phone] 425133 loss, unsp [address], [id number] weeks US. gestation of tel: [phone] [facility] Suprvsn of preg w Nov-3 Sobbing Referring In Womens poor reprodctv or 0-201 Reggie. Provider: Basilio HOLLIDAY, obstet hx, first 7 700 Tanya PO Box triSupervision of [facility], 1522, other high risk Center [address], pregnancies, Drive, [place], first [address], [id number], trimesterPreg 120[place], [address]. [place] care for patient Freddie, tel:+ tel:+[phone] w recurrent preg [place], [id number] 488797 loss, unsp [address], [id number] weeks US. gestation of tel:+06-25 [phone] [facility] Suprvsn of preg w Nov-0 Sobbing Referring In Womens poor reprodctv or Sarver. Provider: Basilio HOLLIDAY, obstet history, 7 700 [facility] unsp Medical Sobbing L, 1522, triSupervision of Center [address] [place] [address], other high risk [address], [facility], pregnancies, Suite Center [id number], first [address], Drive [place] trimesterPreg Frazier, [address], tel:+[phone] care for patient Freddie SOTO, [place] [address], [place], [address]. loss, unsp [place]. tel:+ trimesterLess tel: [phone] than 8 weeks [id number] gestation of [facility] Encounter for Oct-1 Sobbing Referring In Womens test, Sarver. Provider: Basilio HOLLIDAY, result unknown 7 700 [facility] G, 1522, Center [address] [facility], [place], [place], [address], , 120[place], [address]. [place] Freddie, tel:+ tel:+316 [place], [phone] [address], [place]. tel: [phone] Umesh Frazier Encounter for Oct-1 Sobbing In Womens test, 0 Sarver. Basilio HOLLIDAY, result unknown 7 700 [facility] 1522, [place], [place], Suite [id number], 120, [place] Freddie, tel:+316 [place], [address], [place]. tel: [phone] Umesh Frazier Encounter for Oct-0 Sobbing Referring In Womens test, Sarver. Provider: Basilio HOLLIDAY, result unknown 7 700 [facility] G, 1522, Center [address] [facility], [place], [address], , 120, [place], [address]. [place] Freddie, tel:+316 tel:+3162 [place], [phone] [phone] [address], [place]. tel: [phone] Umesh Frazier Recurrent Jerardo-2 Garcia In Womens loss Lois. Basilio HOLLIDAY, 7 700 [facility] 1522, [facility] [place], 120, [id number], [place], [place], tel:+ [phone] , [place]. tel:[phone] [facility] Complete or unsp Feb-1 Garcia Referring In Womens spontaneous 3-201 Lois. Provider: Basilio HOLLIDAY, without 7 700 Tanya PO Box complicationCompl [facility], 1522, ete or unsp Center [address], spontaneous [place], without 120, [address], [id number], [place], [address]. [place], tel:+ tel:+ [phone] [id number] , [place]. tel: [phone] [facility] Complete or unsp Feb-1 Garcia Referring In Womens Ultrasound spontaneous - Lois. Provider: Basilio HOLLIDAY, without 7 700 Tanya PO Box [id number] [facility], 1522, weeks gestation Center [address], of [place], 120, [address], , [place], [address]. [place], tel:+ tel: [phone] 254463 , [place]. tel: [phone] [facility] Threatened Feb-0 Garcia Referring In Womens 7-201 Lois. Provider: Basilio HOLLIDAY, 7 700 Tanya PO Box [facility], 1522, Center [address] [place], [place], 120, [address], , [place], [address]. [place], tel: tel:[phone] [phone] , [place]. tel: [phone] [facility] Irregular Feb-0 Garcia Referring In Womens MensesPersonal 3-201 Lois. Provider: Basilio HOLLIDAY, history of comp 7 700 Tanya PO Box [facility], and the puerp Center [address] [place], [place], 120, [address], , [place], [address]. [place], tel:+316 tel: [phone] , [place]. tel: [phone] Umesh Frazier Encntr for aix administrator Oct- Sagastume Referring In Womens exam (general) 1- Carrie. Provider: Basilio HOLLIDAY, (routine) w/o abn 6 700 Tanya PO Box findingsPap Smear Medical Douglas G, 1522, Screening, Center [address], CervixPap Smear , [facility], [place], Screening, Cervix 120, [address], [id number], [place], [address]. [place], tel: tel: [phone] , [place]. tel: [phone] Umesh Frazier Apr- Darrian Referring In Womens 7-201 Cassia. Provider: Basilio HOLLIDAY, 4 700 [address] PO Box Medical [place] 1522, Center S, [address], [facility] [place], 120, [place] , Freddie [facility] 120, [place] Freddie SOTO, tel: [phone] [place], , [place]. [id number]. tel: tel: [phone] Umesh Frazier Mar- Holdeman Referring In Womens 8-201 Gracy. Provider: Basilio HOLLIDAY, 4 700 [address] PO [address] Medical [place] 1522, Center S, [address], [facility] [place], 120, [place] [id number], Freddie [facility] 120, [place] Freddie SOTO, tel:[phone] [place], , [place]. [id number]. tel: tel: [phone] Umesh Frazier Apr-0 Holdeman In Womens 6-201 Gracy. Basilio HOLLIDAY, 2 700 PO Box Medical [address], [address], [facility] [place], 120, [id number], Freddie, CHARLES, tel: [phone] , [place]. tel: [phone] Umesh Frazier Dec-0 [place] In Womens 8-201 Gracy. Health [facility], 1 700 PO Box Medical 15[address], [place] [address], [place], 120, [id number], [place], tel:[phone] 609852 , . tel:[phone] Family History Family Member Diagnosis Age At [...] party ID Authorization(s) [employer] [place] [id number] [employer] [place] [id number] [employer] [id number] [employer] [place] [id number] [employer] [place] [id number] Social History Type Description Quantity Date Captured Unknown Vital Signs Date / Height Weight BMI Pulse Blood Temperature Respiratory Body Head BMI Time: Rate Pressure Rate Surface Circumference percentile Area Unknown Chief Complaint And Reason For Visit Unknown Chief Complaint And Reason For Visit Reason For Referral Reason For Referral Unknown Plan Of Care Date Type Action Status Appointment Bhumika Ghotra KEPT Appointment Bhumika Ghotra BOOKED Appointment Bhumika Ghotra BOOKED Appointment Bhumika Ghotra BOOKED Appointment Bhumika Ghotra BOOKED Appointment Bhumika Ghotra BOOKED Appointment Bhumika Ghotra BOOKED Appointment Bhumika Ghotra BOOKED Appointment Bhumika Ghotra [facility] R C/S BOOKED Future Order: Radiology Order Biophysical Profile without NST Ordered ([id number]) Future Order: Radiology Order Ultrasound OB, Transvaginal ([id number] ) Ordered Future Order: Radiology Order Complete OB Ultrasound > 14 Ordered Weeks ([id number]) Future Order: Radiology Order Ultrasound OB Follow-up ([id number]) Ordered Future Order: Radiology Order Ultrasound OB Follow-up ([id number]) Ordered Future Order: Radiology Order Biophysical Profile without NST Ordered ([id number]) Future Order: Lab Order Pap Smear With HPV Reflex If ASCUS Ordered ([id number]) Future Order: Radiology Order Biophysical Profile without NST Ordered ([id number]) Future Order: Radiology Order Biophysical Profile without NST Ordered ([id number]) Future Order: Radiology Order Ultrasound OB Follow-up ([id number]) Ordered Future Order: Radiology Order Biophysical Profile without NST Ordered ([id number]) Date Type Problem Goal Intervention Status Start Date Unknown. History Of Present Illness Encounter Date Complaint History Of Present Illness This patient has no known history of present illness Functional Status Encounter Date Functional Assessment Cognitive Assessment Unknown Medications Administered Medication Instructions Dosage Effective Dates (start - stop) Status Comments Drug Treatment Unknown Instructions Date Instruction Additional Information anesthesia / analgesia plans movement monitoring labor signs counseling signs and symptoms of -induced hypertension postterm counseling circumcision breast or bottle feeding depression influenza vaccine smoking counseling domestic violence education ( screening, jaundice, SIDS, car seat) family medical leave or disability forms group B strep screening TdaP vaccine placing baby to sleep on back placing baby to sleep in a crib, bassinet, or portable crib baby sleep environment includes a firm mattress and fitted sheet removing blankets, pillows, bumper pads, stuffed toys from baby sleep env. skin to skin education HIV and other routine tests risk factors [...]
--- OUTSIDE RECORDS SUMMARY | 2017-10-19 14:15 | External Medical Summary | Continuity of Care Document ---
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 Provider: Basilio HOLLIDAY, pregnancies, 8 [address] third [facility], 1522, trimesterLow Center [address], [place], , third [address], , trimesterPreg 120, [place], [address]. [place] care for patient Freddie, tel: tel: w recurrent preg [place], [phone] loss, unsp [address], trimesterPrevious [place]. Low Transverse tel:[phone] Umesh Frazier Suprvsn of preg w Sobbing Referring In Womens Ultrasound poor reprodctv or 0-201 Reggie. Provider: Basilio HOLLIDAY, obstet hx, third 8 700 [address] triMaternal care [facility], 1522, for oth Center [address], [place], damage, [address], [id number], unspMatern care 120[place], [address]. [place] for oth or susp [place], tel: tel: poor fetl grth, [place], [phone] third tri, unsp34 [address], weeks gestation [place]. of tel: [phone] Umesh [place]ier Supervision of September-0 Sobbing Referring In Womens other high risk [place]. Provider: Basilio HOLLIDAY, pregnancies, 8 700 [address] PO Box third [facility], 1522, trimesterPreg Center [address], care for patient Drive, [place], w recurrent preg [address], [id number], loss, unsp 120[place], [address]. [place] trimesterPrevious [place], tel: tel: [place], [phone] C-SectionMatern [address], care for oth or [place]. susp poor fetl tel: grth, third tri, [phone] vasile Umesh [place]ier Supervision of September-0 Sobbing Referring In Womens Ultrasound other high risk [place]. Provider: Basilio HOLLIDAY, pregnancies, 8 700 [address] PO Box third [facility], 1522, trimesterMaternal Center [address], care for oth Drive, [place], abnormality [address], [id number], and damage, 120[place], [address]. [place] unspMatern care Freddie, tel: tel: for oth or susp [place], [phone] poor fetl grth, [address], third tri, unsp33 [place]. weeks gestation tel: of [phone] Umesh Frazier Suprvsn of preg w Apr-2 Sobbing Referring In Womens poor reprodctv or - [place]. Provider: Basilio HOLLIDAY, obstet hx, third 8 700 [address] PO Box triSupervision of [facility] G, 1522, other high risk Center [address], pregnancies, Drive, [place], third [address], [id number], trimesterPreg 120[place], [address]. [place] care for patient Freddie, tel: tel: w recurrent preg [place], [phone] loss, unsp [address], trimesterMatern [place]. care for oth or tel:+06-25 susp poor fetl [phone] grth, third tri, unsp [facility] Supervision of Apr-2 Sobbing Referring In Womens Ultrasound other high risk [place]. Provider: Basilio HOLLIDAY, pregnancies, 8 700 [address] PO Box third [facility], 1522, trimesterMaternal Center [address], care for oth Drive, [place], abnormality [address], [id number], and damage, 120[place], [address]. [place] unspMatern care [place], tel:+ tel: for oth or susp [place], [phone] poor fetl grth, [address], third tri, unsp32 [place]. weeks gestation tel:+06-25 of [phone] Umesh Frazier Suprvsn of preg w Apr-1 Sobbing Referring In Womens poor reprodctv or [place]. Provider: Basilio HOLLIDAY, obstet hx, third 8 700 [address] PO Box triSupervision of [facility] G, 1522, other high risk Center [address], pregnancies, Drive, [place], third [address], [id number], [place] 120[place], [address]. [place] weight gain in Freddie, tel:+ tel: , third [place], [phone] [id number] weeks 565[address], gestation of [place]. tel: [phone] Umesh [place]ier Supervision of Apr-1 Sobbing Referring In Womens Ultrasound other high risk [place]. Provider: Basilio HOLLIDAY, pregnancies, 8 700 [address] PO Box third [facility] G, 1522, trimesterMaternal Center [address], care for oth Drive, [place], abnormality [address], [id number], and damage, 120, [place], [address]. [place] unspMatern care [place], tel:+ tel:+ for oth or susp [place], [phone] poor fetl grth, [address], third tri, unsp31 [place]. weeks gestation tel:+06-25 of [phone] Umesh [place] Suprvsn of preg w Apr-1 Sobbing Referring In Womens poor reprodctv or 2-201 Reggie. Provider: Basilio HOLLIDAY, horacioet hx, third 8 700 [address]anya PO Box triSupervision of [facility], 1522, other high risk Center [address], pregnancies, Drive, [place], third [address], [id number], [place] 120[place], [address]. [place] weight gain in [place], tel:+ tel: , third [place], [phone] trimesterPreg [address], care for patient [place]. w recurrent preg tel:+06-25 loss, unsp [phone] trimester [facility] Supervision of Apr-1 Sobbing Referring In Womens Ultrasound other high risk 2-201 [place]. Provider: Basilio HOLLIDAY, pregnancies, 8 700 [address] PO Box third Medical [facility], 1522, trimesterMaternal Center [address], care for oth Drive, [place], abnormality [address], [id number], and damage, 120[place], [address]. [place] unspMatern care Freddie, tel: tel: for oth or susp KS, [phone] poor fetl grth, [address], third tri, unsp30 US. weeks gestation tel: of [phone] [facility] Suprvsn of preg w Apr-0 Sobbing Referring In Womens poor reprodctv or 6-201 Reggie. Provider: Basilio HOLLIDAY, horaicoet hx, third 8 700 [address] PO Box triSupervision of [facility], 1522, other high risk Center [address], pregnancies, Drive, [place], third [address], [id number], [place] 120[place], [address]. [place] weight gain in Freddie, tel:+ tel:+ , third [place], [phone] [email or web address] weeks [address], gestation of [place]. tel: [phone] [facility] Suprvsn of preg w Mar-2 Sobbing Referring In Womens poor reprodctv or 2-201 Reggie. Provider: Basilio HOLLIDAY, obstet hx, second 8 700 [address] PO Box triSupervision of [facility], 1522, other high risk Center [address], pregnancies, Drive, [place], second [address], [id number], [id number] weeks 120, [place], [address]. [place] gestation of Freddie, tel:+ tel: [place], [phone] [phone], [place]. tel: [phone] [facility] Suprvsn of preg w Sobbing Referring In Womens Ultrasound poor reprodctv or Reggie. Provider: Basilio HOLLIDAY, obstet hx, second 8 700 [address]anya PO Box triSupervision of [facility], 1522, other high risk Center [address], pregnancies, Drive, [place], second [address], [id number], trimester[place]aternal 120[place], [address]. [place] care for oth [place], tel: tel: abnormality [place], [phone] 709934 and damage, [address], unsp27 weeks [place]. gestation of tel: [phone] [facility] Suprvsn of preg w Sobbing Referring In Womens poor reprodctv or Reggie. Provider: Basilio HOLLIDAY, obstet hx, second 8 700 [address]anya PO Box triSupervision of [facility], 1522, other high risk Center [address], pregnancies, Drive, [place], second [address], [id number], trimesterPreg 120[place], [address]. [place] care for patient Freddie, tel: tel: w recurrent preg KS, [phone] 196863 loss, unsp [address], [id number] weeks [place]. gestation of tel: [phone] [facility] Supervision of Sobbing Referring In Womens other high risk [place]. Provider: Basilio HOLLIDAY, pregnancies, 8 [address] PO Box second Medical [facility], 1522, trimesterPreg Center [address], care for patient Drive, [place], w recurrent preg [address], [id number], loss, unsp 120[place], [address]. [place] [id number] weeks Freddie, tel: tel: gestation of [place], [phone] [address], [place]. tel: [phone] [facility] Suprvsn of preg w Jann- Sobbing Referring In Womens Ultrasound poor reprodctv or 2-201 Reggie. Provider: Basilio HOLLIDAY, obstet hx, second 8 700 [address]anya PO Box triSupervision of [facility], 1522, other high risk Center [address], pregnancies, Drive, [place], second [address], [id number], trimesterPreg 120, [place], [address]. [place] care for patient [place], tel: tel: w recurrent preg KS, [phone] 842839 loss, unsp [address], [id number] weeks [place]. gestation of tel: [phone] [facility] Suprvsn of preg w Sobbing Referring In Womens poor reprodctv or 8-201 Reggie. Provider: Basilio HOLLIDAY, obstet hx, second 7 700 [address] PO Box triSupervision of [facility], 1522, other high risk Center [address], pregnancies, Drive, [place], second [address], [id number], trimesterPreg 120[place], [address]. [place] care for patient Freddie, tel: tel: w recurrent preg KS, [phone] 536664 loss, unsp [address], [id number] weeks US. gestation of tel: [phone] [facility] Suprvsn of preg w Nov-3 Sobbing Referring In Womens poor reprodctv or 0-201 Reggie. Provider: Basilio HOLLIDAY, obstet hx, first 7 700 [address]anya PO Box triSupervision of [facility], 1522, other high risk Center [address], pregnancies, Drive, [place], first [address], [id number], trimesterPreg 120[place], [address]. [place] care for patient Freddie, tel:+ tel:+[phone] w recurrent preg KS, [phone] 695313 loss, unsp [address], [id number] weeks US. gestation of tel: [phone] [facility] Suprvsn of preg w Nov-0 Sobbing Referring In Womens poor reprodctv or [place]. Provider: Basilio HOLLIDAY, obstet history, 7 700 [facility] unsp Medical [place] L, 1522, triSupervision of Center [address] [place] [address], other high risk Drive, Medical [place], pregnancies, Suite Center , first 120, Drive [place] trimesterPreg [place], [address], tel:[phone] care for patient Freddie SOTO, [place] [address], [place], [address]. loss, unsp [place]. tel:+ trimesterLess tel: [phone] than 8 weeks [phone] gestation of [facility] Encounter for Oct-1 Sobbing Referring In Womens test, [place]. Provider: Basilio HOLLIDAY, result unknown 7 700 [facility] G, 1522, Center [address] [place], [place], [address], , 120, [place], [address]. [place], tel: tel:+316 [place], [phone] [phone] [address], [place]. tel: [phone] Umesh Frazier Encounter for Oct-1 Sobbing In Womens test, 0 [place]. Basilio HOLLIDAY, result unknown 7 700 [facility] 1522, [place], [place], Suite , 120, [place], tel:+316 [place], [address], [place]. tel: [phone] Umesh Frazier Encounter for Oct-0 Sobbing Referring In Womens test, [place]. Provider: Basilio HOLLIDAY, result unknown 7 700 [facility] G, 1522, Center [address] [facility], [place], [address], , 120, [place], [address]. [place], tel:+316 tel:+3162 [place], 6852902 092759 [address], [place]. tel: [phone] Umesh [place]ier Recurrent Jerardo-2 Garcia In Womens loss Lois. Basilio HOLLIDAY, 7 700 [facility] 1522, [facility], , [facility] [place], 120, [id number], [place], [place], tel: [phone] [phone] , [place]. tel: [phone] [facility] Freddie Complete or unsp Feb-1 Garcia Referring In Womens spontaneous 3-201 Lois. Provider: Basilio HOLLIDAY, without 7 700 [address] PO Box complicationCompl [facility], 1522, ete or unsp Center [address], spontaneous [place]ith [place], without [address], [address], [id number], [place], [address]. [place], tel:+ tel: [phone] , [place]. tel: [phone] [facility] Complete or unsp Feb-1 Garcia Referring In Womens Ultrasound spontaneous - Lois. Provider: Basilio HOLLIDAY, without 7 700 [address] PO Box [id number] [facility], 1522, weeks gestation Center [address], of [place], 120, [address], , [place], [address]. [place], tel: tel:[phone] [id number] , [place]. tel: [phone] [facility] Threatened Feb-0 Garcia Referring In Womens - Lois. Provider: Basilio HOLLIDAY, 7 700 [address] PO Box [facility], 1522, Center [address] [place], [place], 120, [address], , [place], [address]. [place], tel: tel: [phone] , [place]. tel: [phone] [facility] Irregular Feb-0 Garcia Referring In Womens MensesPersonal 3-201 Lois. Provider: Basilio HOLLIDAY, history of comp 7 700 Tanya PO Box of preg, chldbrth [facility], 1522, and the puerp Center [address] [place], [place], 120, [address], [id number], [place], [address]. [place], tel: tel: [phone] , [place]. 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 Provider: Basilio HOLLIDAY, (routine) w/o abn 6 700 Tanya PO Box findingsPap Smear Medical [facility], 1522, Screening, Center [address], CervixPap Smear , [facility], [place], Screening, Cervix [address], [address], [id number], [place], [address]. [place], tel: tel: [phone] , [place]. tel: [phone] Umesh [place]ier Apr- Darrian Referring In Womens 7- Cassia. Provider: Basilio HOLLIDAY, 4 700 [address] PO Box Medical [place] 1522, Center S, [address], [facility] [place], 120, [place] , Freddie, [facility] 120, [place] Freddie SOTO, tel: [phone] [place], , [place]. [id number]. tel: tel: [phone] Umesh Frazier Mar- Supriya Referring In Womens 8-201 Gracy. Provider: Basilio HOLLIDAY, 4 700 [address] PO [address] Medical [place] 1522, Center S, [address], [facility] [place], 120, [place] [id number], Freddie [facility] 120, [place] Freddie SOTO, tel:[phone] [place], , [place]. [id number]. tel: tel: [phone] Umesh Frazier Dec-0 [place] In Womens 6-201 [place]acy. Health MG, 2 700 PO [address] Medical [address], [place] [address], [facility] [place], 120, [id number], [place], [place], tel: [phone] , [place]. tel: [phone] Umesh Frazier Aug-0 [place] In Womens 8-201 [place]acy. Basilio HOLLIDAY, 1 700 [address] Medical [address], [place] [address], [facility] [place], 120, [id number], [place], tel:[phone] , . tel:[phone] Family History Family Member Diagnosis Age At [...] ID Authorization(s) [employer] [place] [id number] [employer] [place] [id number] [employer] [place] [id number] [employer] [place] [id number] [employer] [place] [id number] Social History Type Description Quantity Date Captured Alcohol Use Details No Caffeine Use Details Unknown Tobacco Use Status Unknown Smoking Status Never smoker Vital Signs Date / Height Weight BMI Pulse Blood Temperature Respiratory Body Head BMI Time: Rate Pressure Rate Surface Circumference percentile Area -2017 1 4:16 kg/m PM eter (2) 142.00 23.6 136/88 -2018 lbs 3 mm[Hg] 4:16 kg/m PM eter (2) Chief Complaint And Reason For Visit Unknown Chief Complaint And Reason For Visit Reason For Referral Reason For Referral Unknown Plan Of Care Date Type Action Status Appointment Bhumika Ghotra KEPT Appointment Bhumika Ghotra BOOKED Appointment Bhumika Ghotra BOOKED Appointment Bhumika Ghotra BOOKED Appointment Bhumika Ghotra BOOKED Appointment Bhumika Ghotra BOOKED Appointment Bhumika Ghotra BOOKED Appointment Bhumika Ghotra [facility]S BOOKED Future Order: Radiology Order Ultrasound OB, Transvaginal ([id number] ) Ordered Future Order: Radiology Order Complete OB Ultrasound > 14 Ordered Weeks ([id number]) Future Order: Radiology Order Ultrasound OB Follow-up ([id number]) Ordered Future Order: Radiology Order Ultrasound OB Follow-up ([id number]) Ordered Future Order: Radiology Order Biophysical Profile without NST Ordered ([id number]) Future Order: Lab Order Pap Smear With HPV Reflex If ASCUS Ordered ([id number]) Future Order: Radiology Order Biophysical Profile without NST Ordered ([id number]) Future Order: Radiology Order Biophysical Profile without NST Ordered ([id number]) Future Order: Radiology Order Ultrasound OB Follow-up ([id number]) Ordered Future Order: Radiology Order Biophysical Profile without NST Ordered ([id number]) Future Order: Radiology Order Biophysical Profile without NST Ordered ([id number]) Date Type Problem Goal Intervention Status Start [...]
--- OUTSIDE RECORDS SUMMARY | 2017-10-19 14:15 | External Medical Summary | Continuity of Care Document ---
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) - (routine) w/o abn findings Pap Smear Screening, Cervix Encounter for test, result unknown Encounter for test, result unknown Encounter for test, result - unknown Active Procedures Procedure Date OB US < 14 WKS, SINGLE FETUS Initial OB Visit No Charge OB Panel With An HIV Venpnctr fngr/heel/ear stick routne Results Test Name Date and Time Measure Units Reference Range Abnormal Flag Comments Panel Description: OBSTETRIC PANEL WHITE BLOOD CELL 7.3 Thousand/uL 3.8-10.8 N COUNT 15:23:00 RED BLOOD CELL 4.48 Million/uL 3.80-5.10 N COUNT 15:23:00 HEMOGLOBIN 13.1 g/dL 11.7-15.5 N 15:23:00 HEMATOCRIT 38.4 % 35.0-45.0 N 15:23:00 MCV 85.7 fL 80.0-100.0 N 15:23:00 MCH 29.2 pg 27.0-33.0 N 15:23:00 MCHC 34.1 g/dL 32.0-36.0 N 15:23:00 RDW 14.5 % 11.0-15.0 N 15:23:00 PLATELET COUNT 232 Thousand/uL 140-400 N 15:23:00 MPV 11.5 fL 7.5-12.5 N 15:23:00 ABSOLUTE 5577 cells/uL 3809-3927 N NEUTROPHILS 15:23:00 ABSOLUTE 1146 cells/uL 850-3900 N LYMPHOCYTES 15:23:00 ABSOLUTE 526 cells/uL 200-950 N MONOCYTES 15:23:00 ABSOLUTE 29 cells/uL 15-500 N EOSINOPHILS 15:23:00 ABSOLUTE 22 cells/uL 0-200 N BASOPHILS 15:23:00 NEUTROPHILS 76.4 % N 15:23:00 LYMPHOCYTES 15.7 % N 15:23:00 MONOCYTES 7.2 % N 15:23:00 EOSINOPHILS 0.4 % N 15:23:00 BASOPHILS 0.3 % N 15:23:00 ANTIBODY SCREEN, NO ANTIBODIES N RBC W/REFL ID, 15:23:00 DETECTED Reference range TITER AND AG No antibodies detected This assay is a screening test for the detection of red blood cell antibodies. The test is not to be used for pretransfusion screening or for the medical management of an alloimmunized . ABO GROUP O 15:23:00 RH TYPE RH(D) 15:23:00 POSITIVE RPR (DX) W/REFL NON-REACTIVE NON-REACTIV N TITER AND 15:23:00 E CONFIRMATORY TESTING HEPATITIS B NON-REACTIVE NON-REACTIV N SURFACE ANTIGEN 15:23:00 E RUBELLA ANTIBODY 1.42 index N Index (IGG) 15:23:00 Interpretation ----- <0.90 Not consistent with Immunity 0.90-0.99 Equivocal > or=1.00 Consistent with Immunity The presence of rubella IgG antibody suggests immunization or past or current infection withrubella virus.Test performed at [email or web address] [address]Awrdmop r: ADAN ASHER DO,MPH Panel Description: HIV 1/2 ANTIGEN/ANTIBODY,FOURTH GENERATION W/RFL HIV NON-REACTIVE NON-REACTIVE N HIV-1 antigen and HIV-1/HIV- 2 antibodies were AG/AB, 15:23:00 notdetected. There is no laboratory evidence of 4TH GEN HIVinfection. PLEASE NOTE: This information has been disclosed toyou from records whose confidentiality may beprotected by state law. If your state requires suchprotection, then the state law prohibits you frommaking any further disclosure of the informationwithout the specific written consent of the personto whom it pertains, or as otherwise permitted by law.A general authorization for the release of medical orother information is NOT sufficient for this purpose. For additional information please refer tohttp://education.Alex and Ani/faq/WHA204(This link is being provided for informational/educational purposes only.) The performance of this assay has not been clinicallyvalidated in patients less than 2 years old. REPORT COMMENT:FASTING:NOTest performed at [email or web address] [place] [address]Wnkyblly: ADAN ASHER DO,MPH Advance Directives Directive Yes / No Effective Date File Name Unknown Encounters Encounter Practice Location Reason(s) Diagnoses Date Provider Care Team Description For Visit [facility] Suprvsn of preg w Nov-0 Sobbing Referring In Womens poor reprodctv or 6-201 [place]. Provider: Basilio HOLLIDAY, obstet history, 7 700 Tanya PO Box unsp Medical [place], 1522, triSupervision of Center [address] [facility], other high risk [place], [place], pregnancies, [address] [place], [id number], first [address], [place], [address]. [place] trimesterPreg Freddie, tel: tel: care for patient [place], [phone] w recurrent preg [address], loss, unsp [place]. trimesterLess tel: than 8 weeks [phone] gestation of [facility] Encounter for Oct-1 Sobbing Referring In Womens test, [place]. Provider: Basilio HOLLIDAY, result unknown 7 700 Tanya PO Box [facility] [place], 1522, Center [address] [place], [place], [address] [place], [id number], [address], [place], [address]. [place], tel: tel: [place], [phone] [address], [place]. tel: [phone] Umesh [place] Encounter for Oct-1 Sobbing In Womens test, 0-201 [place]. Basilio HOLLIDAY, result unknown 7 700 [facility] Medical 1522, [place], [place], [address] [id number], 120, [place], tel: [place], [phone], [place]. tel: [phone] Umesh [place] Encounter for Oct-0 Sobbing Referring In Womens test, 9 [place]. Provider: Basilio HOLLIDAY, result unknown 7 700 Tanya PO Box Medical [place], 1522, Center [address] [place], [place], [address] [place], [id number], 120, [place], [address]. [place], tel:[phone] tel:316 [place], [phone], [place]. tel: [phone] [facility] Recurrent Jerardo-2 Garcia In Womens loss 9-201 [place]. Basilio HOLLIDAY, 7 700 PO Box Medical [address], [address], Laith [place], 120, [id number], [place], [place], tel: [phone] , [place]. tel: [phone] [facility] Complete or unsp Feb-1 Garcia Referring In Womens spontaneous 3-201 [place]. Provider: Basilio HOLLIDAY, without 7 700 Tanya PO Box complicationCompl [facility], 1522, ete or unsp Center [address] [place], spontaneous Laith [place], without 120, [place], [id number], [place], [address]. [place], tel: tel: [phone] , [place]. tel: [phone] [facility] Complete or unsp Feb-1 Garcia Referring In Womens Ultrasound spontaneous 3-201 [place]. Provider: Basilio HOLLIDAY, without 7 700 Tanya PO Box [id number] [facility], 1522, weeks gestation Center [address], of Laith [place], 120, Nan, [id number], [place], [address]. [place], tel: tel: [phone] , [place]. tel: [phone] [facility] Threatened Feb-0 Garcia Referring In Womens 7-201 Lois. Provider: Basilio HOLLIDAY, 7 700 Tanya PO Box Medical [place], 1522, Center [address] [place], [place], 120, Nan, [id number], [place], [address]. [place], tel: tel:[phone] , [place]. tel: [phone] [facility] Irregular Feb-0 Garcia Referring In Womens MensesPersonal 3-201 [place]. Provider: Basilio HOLLIDAY, history of comp 7 700 Tanya PO Box of preg, [facility], and the puerp Center [address], Latih Devries [place], 120, [place], [id number], [place], [address]. [place], tel:+ tel:+ [phone] , [place]. tel: [phone] Umesh [place] Encntr for manager gyn Oct-3 [place] Referring In Womens exam (general) 1- Carrie. Provider: Health MG, (routine) w/o abn 6 700 Tanya PO Box findingsPap Smear [facility] G, 1522, Screening, Center [address], CervixPap Smear , CHARLES Nelson, Screening, Cervix 120, Nan, [id number], [place], [address]. [place], tel: tel: [phone] , [place]. tel: [phone] Umesh [place] Dec- Darrian Referring In Womens 7-201 [place]. Provider: Basilio HOLLIDAY, 4 700 Gracy PO Box Medical [place] 1522, Center S, [address], [facility], 120, [place] [id number], Freddie [facility] 120, [place] Freddie SOTO, tel: [phone] [place], , [place]. [id number]. tel: tel: [phone] Umesh [place] Nov- Supriya Referring In Womens 8-201 [place]. Provider: Basilio HOLLIDAY, 4 700 Gracy PO Box Medical [place] 1522, Center S, [address] Dr [address], [facility] [place], 120, Center [id number], [place], [facility] 120, [place] Freddie SOTO, tel: [phone] [place], , [place]. [id number]. tel: tel: [phone] Umesh [place] Dec-0 Akbareman In Womens 6-201 [place]. Health MG, 2 700 PO Box Medical [address], [address] Nan, [facility] [place], 120, [id number], [place], [place], tel: [phone] , [place]. tel: [phone] Umesh [place] Supriya In Womens 8-201 [place]. [facility], 1 700 [facility] 15[address], [address] Nan, [facility] [place], 120, [id number], [place], [place], tel:[phone] , [place]. tel: [phone] Family History Family Member Diagnosis Age At Onset Paternal Grandmother Cancer, breast Maternal Grandmother Cancer, breast Immunizations Vaccine Date Status Comments Influenza, injectable, completed Source: New Immunization Record quadrivalent, preservative free, 3 yrs or older Tdap completed Source: New Immunization Record Payers Payer name Insurance type Covered libertarian ID Authorization(s) BCBS Out [place] [id number] BCBS [place] [id number] BCBS Out Of [place] [id number] Social History Type Description Quantity Date Captured Alcohol Use Details No Caffeine Use Details Unknown Tobacco Use Status Never smoked tobacco Smoking Status Never smoker Non-Smoking Tobacco Use : No Details Available : No Details Available Details Vital Signs Date / Height Weight BMI Pulse Blood Temperature Respiratory Body Head BMI Time: Rate Pressure Rate Surface Circumference percentile Area 136.30 22.6 124/ lbs 8 mm[Hg] 2:27 kg/m PM eter (2) Chief Complaint And Reason For Visit Unknown Chief Complaint And Reason For Visit Reason For Referral Reason For Referral Unknown Plan Of Care Date Type Action Status Appointment Bhumika Ghotra BOOKED Future Order: Lab Order Pap Smear With HPV Reflex If ASCUS Ordered ([id number]) Future Order: Radiology Order Ultrasound OB, Transvaginal ([id number] ) Ordered Date Type Problem Goal Intervention [...]
--- OUTSIDE RECORDS SUMMARY | 2017-10-19 14:15 | External Medical Summary | Continuity of Care Document ---
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) - (routine) w/o abn findings Pap Smear Screening, Cervix Encounter for test, result unknown Encounter for test, result unknown Encounter for test, result - unknown Active Procedures Procedure Date Immuniz admnin, 1 vac, sngl/combo 19 Yrs + Flu Vaccine - Quadrivalent OB Visit No Charge Results Test Name Date and Time Measure Units Reference Range Abnormal Flag Comments Unknown Advance Directives Directive Yes / No Effective Date File Name Unknown Encounters Encounter Practice Location Reason(s) Diagnoses Date Provider Care Team Description For Visit [facility] Olveran of preg w Nov-3 Sobbing Referring In Womens poor reprodctv or 0-201 [place]. Provider: Basilio HOLLIDAY, obstet hx, first 7 700 Tanya PO Box triSupervision of [facility] G, 1522, other high risk Center [address] [place], pregnancies, Drive, [place], [place], first [address] [place], , trimesterPreg 120, [place], [address]. [place] care for patient Freddie, tel:+ tel:+2 w recurrent preg CHARLES, [id number] loss, unsp [address], [id number] weeks [place]. gestation of tel:[phone] [facility] Suprvsn of preg w Nov-0 Sobbing Referring In Womens poor reprodctv or 6-201 [place]. Provider: Basilio HOLLIDAY, obstet history, 7 700 [facility] Box unsp Medical [place] L, 1522, triSupervision of Center [address] [place], other high risk Drive, Medical [place], pregnancies, Suite Center , first [address], Drive [place] trimesterPreg [place], [address], tel:2 care for patient [place], w recurrent preg [address], [place], [address]. loss, unsp [place]. tel: trimesterLess tel: [phone] than 8 weeks [phone] gestation of [facility] Encounter for Sobbing Referring In Womens test, 1 [place]. Provider: Basilio HOLLIDAY, result unknown 7 700 [facility] G, 1522, Center [address] [place], [facility], [place], [place], [address] [place], [id number], 120, [place], [address]. [place], tel: tel: [place], [phone] [address], [place]. tel: [phone] Umesh [place] Encounter for Oct-1 Sobbing In Womens test, 0-201 Reggie. Basilio HOLLIDAY, result unknown 7 700 PO Box Medical [address], [place], [place], [address] [id number], 120, [place], tel: [place], [phone], [place]. tel: [phone] Umesh [place] Encounter for Oct-0 Sobbing Referring In Womens test, 9-201 [place]. Provider: Basilio HOLLIDAY, result unknown 7 700 Tanya PO Box Medical [facility], 1522, Center [address] [place], [place], [address] [place], , 120, [place], [address]. [place], tel: tel: [place], [phone], [place]. tel: [phone] [facility] Recurrent Jerardo-2 Garcia In Womens loss 9-201 [place]. Basilio HOLLIDAY, 7 700 PO Box Medical [address]22, [employer], Laith [place], 120, [id number], [place], [place], tel: [phone] , [place]. tel: [phone] [facility] Complete or unsp Feb-1 Garcia Referring In Womens spontaneous 3-201 [place]. Provider: Basilio HOLLIDAY, without 7 700 Tanya PO Box complicationCompl [facility], 1522, ete or unsp Center [address] [place], [facility] [address] [place], [place], without 120, [place], [id number], [place], [address]. [place], tel:+ tel:[phone] , [place]. tel: [phone] [facility] Complete or unsp Feb-1 Garcia Referring In Womens Ultrasound spontaneous 3-201 [place]. Provider: Basilio HOLLIDAY, without 7 700 Tanya PO Box [id number] Medical [facility], 1522, weeks gestation Center [address] [place], of Laith [place], 120, [place], [id number], [place], [address]. [place], tel: tel: [phone] , [place]. tel: [phone] [facility] Threatened Feb-0 Garcia Referring In Womens 7-201 [place]. Provider: Basilio HOLLIDAY, 7 700 Tanya PO Box [facility], 1522, Center [address], [place], 120, [place], [id number], [place], [address]. [place], tel: tel:[phone] , [place]. tel: [phone] [facility] Irregular Feb-0 Garcia Referring In Womens MensesPersonal 3-201 [place]. Provider: Basilio HOLLIDAY, history of comp 7 700 Tanya PO Box [facility] preg, [facility], and the puerp Center [address], CHAR[place], 120, [place], [id number], [place], [address]. [place], tel: tel:[phone] , [place]. 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 Provider: Basilio HOLLIDAY, (routine) w/o abn 6 700 Tanya PO Box findingsPap Smear [facility], 1522, Screening, Center [address] [place], CervixPap Smear [place]ith [place], Screening, Cervix 120, [place], [id number], [place], [address]. [place], tel: tel:[phone] , [place]. tel: [phone] [facility] Dec- Adrrian Referring In Womens 7-201 [place]. Provider: Basilio HOLLIDAY, 4 700 Gracy PO Box [facility] 1522, Center S, [address], [facility] [place], 120, [place] [id number], [place], [facility] 120, [place], [place], tel:[phone] [place], , [place]. [id number]. tel: tel: [phone] [facility] Mar- [place] Referring In Womens 8-201 [place]. Provider: Health PA, 4 700 Gracy PO Box Medical [place] 1522, Center S, [facility] Dr Nan, [facility] [place], 120, [place] [id number], [place], [facility] 120, [place], [place], tel:[phone] [place], , [place]. [id number]. tel: tel: [phone] Umesh [place] Apr-0 [place] In Womens 6-201 [place]. Health PA, 2 700 PO Box Medical [address], [address], [facility], 120, [id number], [place], [place], tel: [phone] , [place]. tel: [phone] Umesh [place] Dec-0 [place] In Womens 8-201 [place]. Health PA, 1 700 PO Box Medical [address], [address] Nan, [facility], 120, [id number], [place], tel:[phone] , [place]. tel: [phone] Family History Family Member Diagnosis Age At Onset Paternal Grandmother Cancer, breast Maternal Grandmother Cancer, breast Immunizations Vaccine Date Status Comments Influenza, injectable, completed Source: New Immunization Record quadrivalent, preservative free, 3 yrs or older Influenza, injectable, completed Source: New Immunization Record quadrivalent, preservative free, 3 yrs or older Tdap completed Source: New Immunization Record Payers Payer name Insurance type Covered constitution party ID Authorization(s) BCBS Out Of [place] [id number] BCBS Out Of [place] BL [id number] BCBS Out Of [place] BL [id number] BCBS Out Of [place] [id number] Social History Type Description Quantity Date Captured Alcohol Use Details No Caffeine Use Details Unknown Tobacco Use Status Unknown Smoking Status Never smoker Vital Signs Date / Height Weight BMI Pulse Blood Temperature Respiratory Body Head BMI Time: Rate Pressure Rate Surface Circumference percentile Area 132.60 22.0 116/79 -2017 lbs 6 mm[Hg] 11:23 kg/m AM eter (2) 132.60 22.0 -2017 lbs 6 11:10 kg/m AM eter (2) Chief Complaint And Reason For Visit Unknown Chief Complaint And Reason For Visit Reason For Referral Reason For Referral Unknown Plan Of Care Date Type Action Status Appointment Bhumika Ghotra BOOKED Future Order: Radiology Order Ultrasound OB, Transvaginal ([id number] ) Ordered Future Order: Lab Order Pap [...]
--- OUTSIDE RECORDS SUMMARY | 2017-10-19 14:16 | External Medical Summary | Continuity of Care Document ---
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 Provider: Basilio HOLLIDAY, pregnancies, 8 [address] third [facility] [place], 1522, trimesterPreg Center [address], care for [address], [place], [place], w recurrent preg [address], [id number], loss, unsp 120, [place], [address]. [place] trimesterPrevious Freddie, tel:+ tel:+ [place], [phone] C-SectionMatern [address], care for oth or [place]. susp poor fetl tel:+06-25 grth, third tri, [id number] unsp Umesh [place] Supervision of September-0 Sobbing Referring In Womens Ultrasound other high risk Pacific. Provider: Basilio HOLLIDAY, pregnancies, 8 700 Tanya PO Box third Medical [place], 1522, trimesterMaternal Center [address], care for [address], [place], abnormality [address], [id number], and damage, 120[place], [address]. [place] unspMatern care [place], tel:+ tel:+316 for oth or susp [place], [phone] poor fetl grth, [address], third tri, unsp33 [place]. weeks gestation tel:+06-25 of [phone] Umesh [place] Suprvsn of preg w Apr-2 Sobbing Referring In Womens poor reprodctv or - Pacific. Provider: Basilio HOLLIDAY, obstet hx, third 8 700 Tanya PO Box [facility]Supervision of [facility], 1522, other high risk Center [address], pregnancies, Drive, [place], third [address], [id number], trimesterPreg 120[place], [address]. [place] care for patient [place], tel: tel: w recurrent preg [place], [phone] loss, unsp [address], trimesterMatern [place]. care for oth or tel:+06-25 susp poor fetl [phone] grth, third tri, unsp [facility] Supervision of Apr-2 Sobbing Referring In Womens Ultrasound other high risk Pacific. Provider: Basilio HOLLIDAY, pregnancies, 8 700 Tanya PO Box third [facility], 1522, trimesterMaternal Center [address], care for [address], [place], abnormality [address], [id number], and damage, 120[place], [address]. [place] unspMatern care Freddie, tel: tel: for oth or susp KS, [phone] poor fetl grth, [address], third tri, unsp32 [place]. weeks gestation tel: of [phone] Umesh [place] Suprvsn of preg w Apr-1 Sobbing Referring In Womens poor reprodctv or Pacific. Provider: Basilio HOLLIDAY, obstet hx, third 8 700 [address]anya PO Box triSupervision of [facility], 1522, other high risk Center [address], pregnancies, Drive, [place], third [address], [id number], trimesterLow 120[place], [address]. [place] weight gain in Freddie, tel: tel: , third [place], [phone] [id number] weeks 201[address], gestation of [place]. tel: [phone] Umesh [place] Supervision of Apr-1 Sobbing Referring In Womens Ultrasound other high risk Pacific. Provider: Basilio HOLLIDAY, pregnancies, 8 700 Tanya PO Box third [facility], 1522, trimesterMaternal Center [address], care for [address], [place], abnormality [address], [id number], and damage, 120[place], [address]. [place] unspMatern care Freddie, tel:+ tel: for oth or susp KS, [phone] poor fetl grth, [address], third tri, unsp31 [place]. weeks gestation tel:+06-25 of [phone] Umesh [place] Suprvsn of preg w Apr-1 Sobbing Referring In Womens poor reprodctv or 2-201 Reggie. Provider: Basilio HOLLIDAY, obstet hx, third 8 700 Tanya PO Box triSupervision of [facility], 1522, other high risk Center [address], pregnancies, Drive, [place], third [address], [id number], [place] 120[place], [address]. [place] weight gain in Freddie, tel:+ tel:+ , third [place], [phone] trimesterPreg [address], care for patient [place]. w recurrent preg tel:+06-25 loss, unsp [phone] trimester [facility] Supervision of Aug-1 Sobbing Referring In Womens Ultrasound other high risk 2-201 Pacific. Provider: Basilio HOLLIDAY, pregnancies, 8 700 [address] PO Box third Medical [place], 1522, trimesterMaternal Center [address], care for [address], [place], abnormality [address], [id number], and damage, 120[place], [address]. [place] unspMatern care Freddie, tel: tel: for oth or susp KS, [phone] poor fetl grth, [address], third tri, unsp30 [place]. weeks gestation tel:+06-25 of [phone] Umesh [place] Suprvsn of preg w Apr-0 Sobbing Referring In Womens poor reprodctv or 6-201 Reggie. Provider: Basilio HOLLIDAY, obstet hx, third 8 700 [address] PO Box triSupervision of [facility], 1522, other high risk Center [address], pregnancies, Drive, [place], third [address], [id number], [place] 120[place], [address]. [place] weight gain in Freddie, tel:+ tel:+ , third [place], [phone] [email or web address] weeks 93494, gestation of [place]. tel:+1-31 [phone] [facility] Suprvsn of preg w Jul- Sobbing Referring In Womens poor reprodctv or Pacific. Provider: alessandra Pena hx, second 8 700 [address] PO Box triSupervision of [facility], 1522, other high risk Center [address], pregnancies, Drive, [place], second [address], [id number], [id number] weeks 120, [place], [address]. [place] gestation of Freddie, tel:+ tel:+2 [place], [phone] [phone] [address], [place]. tel: [phone] [facility] Suprvsn of preg w Jul- Sobbing Referring In Womens Ultrasound poor reprodctv or Pacific. Provider: alessandra Pena hx, second 8 700 Tanya PO Box triSupervision of [facility], 1522, other high risk Center [address], pregnancies, Drive, [place], second [address], [id number], trimester[place]aternal 120[place], [address]. [place] care for oth Freddie, tel:+ tel:2 abnormality [place], [phone] and damage, [address], unsp27 weeks [place]. gestation of tel: [phone] [facility] Suprvsn of preg w Sobbing Referring In Womens poor reprodctv or Pacific. Provider: alessandra Pena hx, second 8 700 [address]anya PO Box triSupervision of [facility], 1522, other high risk Center [address], pregnancies, Drive, [place], second [address], [id number], trimesterPreg 120[place], [address]. [place] care for patient Freddie, tel:+ tel:+2 w recurrent preg [place], [phone] loss, unsp [address], [id number] weeks [place]. gestation of tel: [phone] [facility] Supervision of Sobbing Referring In Womens other high risk Pacific. Provider: Basilio HOLLIDAY, pregnancies, 8 700 [address] PO Box second Medical [facility], 1522, trimesterPreg Center [address], care [address], [place], w recurrent preg [address], [id number], loss, unsp 120[place], [address]. [place] weeks Freddie, tel:+ tel: gestation of [place], [phone] 849928 [address], [place]. tel: [phone] [facility] Suprvsn of preg w Jann-2 Sobbing Referring In Womens Ultrasound poor reprodctv or 2-201 Reggie. Provider: Basilio HOLLIDAY, obstet hx, second 8 700 Tanya PO Box triSupervision of [facility], 1522, other high risk Center [address], pregnancies, Drive, [place], second [address], [id number], trimesterPreg 120[place], [address]. [place] care for patient Freddie, tel: tel: w recurrent preg [place], [phone] 149167 loss, unsp [address], [id number] weeks [place]. gestation of tel: [phone] [facility] Suprvsn of preg w Dec- Sobbing Referring In Womens poor reprodctv or 8-201 Reggie. Provider: horacio Penaet hx, second 7 700 [address]anya PO Box triSupervision of [facility], 1522, other high risk Center [address], pregnancies, Drive, [place], second [address], [id number], trimesterPreg 120[place], [address]. [place] care for patient Freddie, tel: tel: w recurrent preg KS, [phone] [phone] loss, unsp [address], [id number] weeks [place]. gestation of tel: [phone] [facility] Suprvsn of preg w Nov-3 Sobbing Referring In Womens poor reprodctv or 0-201 Reggie. Provider: Basilio HOLLIDAY, obstet hx, first 7 700 Tanya PO Box triSupervision of [facility], 1522, other high risk Center [address], pregnancies, Drive, [place], first [address], [id number], trimesterPreg 120[place], [address]. [place] care for patient [place], tel: tel: w recurrent preg [place], [phone] loss, unsp [address], weeks [place]. gestation of tel: [phone] Umesh [place] Suprvsn of preg w Nov-0 Sobbing Referring In Womens poor reprodctv or 6-201 Pacific. Provider: Basilio HOLLIDAY, obstet history, 7 700 [facility] unsp Medical [place] L, 1522, triSupervision of Center [address], other high risk Drive, Medical [place], pregnancies, Suite Center [id number], first 120, Drive [place] trimesterPreg Freddie, [address], tel: care for patient Freddie [place], [place] recurrent preg [address], [place], [address]. loss, unsp [place]. tel: trimesterLess tel: [phone] than 8 weeks [phone] gestation of [facility] Encounter for Oct-1 Sobbing Referring In Womens test, 1 Pacific. Provider: Basilio HOLLIDAY, result unknown 7 700 [facility], 1522, Center [address] [place], [place], [address], [id number], 120, [place], [address]. [place] Freddie, tel: tel: [place], [phone] [address], [place]. tel: [phone] Umesh [place] Encounter for Oct-1 Sobbing In Womens test, 0-201 Pacific. Basilio HOLLIDAY, result unknown [address] [facility] 1522, [place], [place], Suite [id number], 120, [place], tel: [place], [address], [place]. tel: [phone] Umesh Frazier Encounter for Oct-0 Sobbing Referring In Womens test, 9 Pacific. Provider: Basilio HOLLIDAY, result unknown 7 700 [facility] G, 1522, Center [address] [place], [place], [address], [id number], 120[place], [address]. [place], tel:+ tel:+316 [place], [phone], [place]. tel: [phone] [facility] Recurrent Jerardo-2 Garcia In Womens loss 9-201 Lois. Basilio HOLLIDAY, 7 700 [address] Medical [address], Center [address], Laith [place], 120, [id number], [place], tel: [phone] , [place]. tel: [phone] [facility] Complete or unsp Feb-1 Garcia Referring In Womens spontaneous 3-201 Lois. Provider: Basilio HOLLIDAY, without 7 700 [address] PO Box complicationCompl [facility], 1522, ete or unsp Center [address], spontaneous Laith [place], without 120, [address] [place], [id number], [place], [address]. [place], tel: tel:[phone] [facility] , [place]. tel: [phone] [facility] Complete or unsp Feb-1 Garcia Referring In Womens Ultrasound spontaneous 3-201 Lois. Provider: Basilio HOLLIDAY, without 7 700 Tanya PO Box [id number] Medical [facility], 1522, weeks gestation Center [address], of Laith [place], 120, [address] [place], [id number], [place], [address]. [place], tel: tel:[phone] [phone] , [place]. tel: [phone] [facility] Threatened Feb-0 Garcia Referring In Womens 7-201 Lois. Provider: Basilio HOLLIDAY, 7 700 Tanya PO Box Medical [place], 1522, Center [address] [place], 120, [address] [place], [id number], [place], [address]. [place], tel: tel:[phone] [id number] , [place]. tel: [phone] [facility] Irregular Feb-0 Garcia Referring In Womens MensesPersonal 3-201 Lois. Provider: Basilio HOLLIDAY, history of comp 7 700 Tanya PO Box of preg, chldbrth Medical [place], 1522, and the puerp Center [address], [place], 120, [address], [id number], [place], [address]. [place], tel:+ tel:+ [phone] [id number] , [place]. tel: [phone] Umesh [place] Encntr for arm maker Feb- Sagastume Referring In Womens exam (general) 1- Carrie. Provider: Health MG, (routine) w/o abn 6 700 Tanya PO Box findingsPap Smear Medical [place], 1522, Screening, Center [address], CervixPap Smear , CHARLES Nelson, Screening, Cervix 120, [place], [id number], [place], [address]. [place], tel:+ tel: [phone] 327231 , [place]. tel: [phone] Umesh [place] Apr- Darrian Referring In Womens 7-201 Cassia. Provider: Basilio HOLLIDAY, 4 700 [address] PO Box Medical [place] [address], Center S, [address], [facility] [place], 120, Center [id number], Freddie [facility] 120, [place] Freddie [place]OTO, tel: [phone] [place], , [place]. [id number]. tel: tel: [phone] Umesh Frazier Nov- Supriya Referring In Womens 8-201 Gracy. Provider: Basilio HOLLIDAY, 4 700 [address] PO [address] Medical [place] [address]22, Center S, [address], [facility] [place], 120, Center [id number], Freddie [facility] 120, [place] Freddie SOTO, tel: [phone] [place], , [place]. [id number]. tel: tel: [phone] Umesh [place] Dec-0 Akbareman In Womens 6-201 Gracy. Basilio HOLLIDAY, 2 700 [address], [address], [facility] [place], 120, [id number], [place], [place], tel: [phone] 439155 , [place]. tel: [phone] Umesh [place] Supriya In Womens 8-201 Gracy. [facility], [address] [facility] 15[address], [address], [facility] [place], 120, [id number], [place], tel:+[phone] , [place]. tel: [phone] Family History Family Member Diagnosis Age At [...] Record Payers Payer name Insurance type Covered democrat ID Authorization(s) [employer] [place] [id number] [employer] [place] [id number] [employer] [place] BL [id number] [employer] [place] [id number] [employer] [place] [id number] Social History Type Description Quantity Date Captured Alcohol Use Details No Caffeine Use Details Unknown Tobacco Use Status Unknown Smoking Status Never smoker Vital Signs Date / Height Weight BMI Pulse Blood Temperature Respiratory Body Head BMI Time: Rate Pressure Rate Surface Circumference percentile Area 141.90 23.6 136/86 -2018 lbs 1 mm[Hg] 9:42 kg/m AM eter (2) Chief Complaint And [...] Appointment Bhumika Ghotra BOOKED Appointment Bhumika Ghotra [facility] [place] BOOKED Future Order: Radiology Order Ultrasound OB, Transvaginal ([id number] ) Ordered Future Order: Radiology Order Complete OB Ultrasound > 14 Ordered Weeks ([id number]) Future Order: Radiology Order Ultrasound OB Follow-up ([id number]) Ordered Future Order: Lab Order Pap Smear With HPV Reflex If ASCUS Ordered ([id number]) Future Order: Radiology Order Biophysical Profile without NST Ordered ([id number]) Future Order: Radiology Order Biophysical Profile without NST Ordered ([id number]) Future Order: Radiology Order Ultrasound OB Follow-up ([id number]) Ordered Future Order: Radiology Order Biophysical Profile without NST Ordered ([id number]) Future Order: Radiology Order Biophysical Profile without NST Ordered ([id number]) Date Type Problem Goal Intervention Status Start [...]
--- OUTSIDE RECORDS SUMMARY | 2017-10-19 14:16 | External Medical Summary | Continuity of Care Document ---
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 Provider: Basilio HOLLIDAY, pregnancies, 8 700 [address] PO [address] third [facility] [place] [facility], 1522, trimesterPreg Center [address], care for patient [address], [place], w recurrent preg [address], [id number], loss, unsp 120[place], [address]. [place] trimesterPrevious Freddie, tel:+ tel:+316 [place], [phone] C-SectionMatern [address], care for oth or [place]. susp poor fetl tel:+06-25 grth, third tri, [phone] unsp Umesh Frazier Supervision of September-0 Sobbing Referring In Womens Ultrasound other high risk [place]. Provider: Basilio HOLLIDAY, pregnancies, 8 700 Tanya PO Box third [facility] [place] [facility], 1522, trimesterMaternal Center [address], care for oth [address], [place], abnormality [address], [id number], and damage, 120[place], [address]. [place] unspMatern care Freddie, tel:+316 tel:+[phone] for oth or susp [place], [phone] poor fetl grth, [address], third tri, unsp33 [place]. weeks gestation tel:+06-25 of [phone] Umesh Frazier Suprvsn of preg w Aug-2 Sobbing Referring In Womens poor reprodctv or - [place]. Provider: Basilio HOLLIDAY, obstet hx, third 8 700 Tanya PO Box triSupervision of [facility], 1522, other high risk Center [address], pregnancies, Drive, [place], third [address], [id number], trimesterPreg 120[place], [address]. [place] care for patient Freddie, tel: tel: w recurrent preg KS, [phone] loss, unsp [address], trimesterMatern [place]. care for oth or tel:+06-25 susp poor fetl [phone] grth, third tri, unsp [facility] Freddie Supervision of Apr-2 Sobbing Referring In Womens Ultrasound other high risk [place]. Provider: Basilio HOLLIDAY, pregnancies, 8 700 Tanya PO Box [facility], 1522, trimesterMaternal Center [address], care for oth [address], [place], abnormality [address], [id number], and damage, 120[place], [address]. [place] unspMatern care Freddie, tel: tel: for oth or susp [place], [phone] poor fetl grth, [address], third tri, unsp32 [place]. weeks gestation tel: of [phone] Umesh Frazier Suprvsn of preg w Apr-1 Sobbing Referring In Womens poor reprodctv or [place]. Provider: Basilio HOLLIDAY, obstet hx, third 8 700 T[address] PO Box [facility]Supervision of [facility], 1522, other high risk Center [address], pregnancies, Drive, [place], third [address], [id number], trimester[place] 120[place], [address]. [place] weight gain in Freddie, tel:+ tel: , third [place], [phone] [email or web address] weeks 24466, gestation of [place]. tel: [phone] Umesh Frazier Supervision of Apr-1 Sobbing Referring In Womens Ultrasound other high risk [place]. Provider: Basilio HOLLIDAY, pregnancies, 8 700 Tanya PO Box [facility] G, 1522, trimesterMaternal Center [address], care for oth [address], [place], abnormality [address], [id number], and damage, 120, [place], [address]. [place] unspMatern care Freddie, tel:+ tel: for oth or susp [place], [phone] poor fetl grth, [address], third tri, unsp31 [place]. weeks gestation tel:+06-25 of [phone] Umesh Frazier Suprvsn of preg w Apr-1 Sobbing Referring In Womens poor reprodctv or 2-201 Reggie. Provider: Basilio HOLLIDAY, obstet hx, third 8 700 Tanya PO Box triSupervision of [facility] [place] [facility], 1522, other high risk Center [address], pregnancies, Drive, [place], third [address], [id number], [place] 120[place], [address]. [place] weight gain in Freddie, tel:+ tel: , third [place], [phone] trimesterPreg [address], care for patient [place]. w recurrent preg tel:+06-25 loss, unsp [phone] trimester Associates Freddie Supervision of Aug-1 Sobbing Referring In Womens Ultrasound other high risk 2-201 [place]. Provider: Basilio HOLLIDAY, pregnancies, 8 700 [address] PO Box third [facility] [place], 1522, trimesterMaternal Center [address], care for oth [address], [place], abnormality [address], [id number], and damage, 120[place], [address]. [place] unspMatern care Freddie, tel:+ tel:+ for oth or susp KS, [phone] poor fetl grth, [address], third tri, unsp30 [place]. weeks gestation tel:+06-25 of [phone] Umesh Frazier Suprvsn of preg w Apr-0 Sobbing Referring In Womens poor reprodctv or 6-201 Reggie. Provider: Basilio HOLLIDAY, obstet hx, third 8 700 [address]anya PO Box triSupervision of [facility] [place], 1522, other high risk Center [address], pregnancies, Drive, [place], third [address], [id number], [place] 120[place], [address]. [place] weight gain in Freddie, tel:+ tel:+ , third [place], [phone] [email or web address] weeks 83465, gestation of [place]. tel: [phone] Associates Freddie Suprvsn of preg w Jul- Sobbing Referring In Womens poor reprodctv or Reggie. Provider: Basilio HOLLIDAY, obstet hx, second 8 700 Tanya PO Box triSupervision of [facility], 1522, other high risk Center [address], pregnancies, Drive, [place], second [address], [id number], [email or web address] weeks 120[place], [address]. [place] gestation of Freddie, tel:+ tel: KS, [phone] [address], [place]. tel: [phone] Associates Freddie Suprvsn of preg w Jul- Sobbing Referring In Womens Ultrasound poor reprodctv or Reggie. Provider: Basilio HOLLIDAY, horacioet hx, second 8 700 Tanya PO Box triSupervision of [facility], 1522, other high risk Center [address], pregnancies, Drive, [place], second [address], [id number], trimester[place]aternal 120[place], [address]. [place] care for oth Freddie, tel: tel:2 abnormality [place], [phone] 774601 and damage, [address], unsp27 weeks [place]. gestation of tel: [phone] Associates Freddie Suprvsn of preg w Jun- Sobbing Referring In Womens poor reprodctv or Reggie. Provider: horacio Penaet hx, second 8 700 [address] PO Box [facility]Supervision of [facility], 1522, other high risk Center [address], pregnancies, Drive, [place], second [address], [id number], trimesterP[place] 120[place], [address]. [place] care for patient Freddie, tel:+ tel:+2 w recurrent preg KS, [phone] 706260 loss, unsp [address], [email or web address] weeks [place]. gestation of tel: [phone] Associates Freddie Supervision of Sobbing Referring In Womens other high risk [place]. Provider: Basilio HOLLIDAY, pregnancies, 8 700 [address]anya PO Box second [facility], 1522, trimesterPreg Center [address], care for patient Drive, [place], w recurrent preg [address], [id number], loss, unsp 120[place], [address]. [place] [email or web address] weeks Freddie, tel:+ tel: gestation of [place], [phone] [phone] [address], [place]. tel: [phone] Associates Freddie Suprvsn of preg w Jann-2 Sobbing Referring In Womens Ultrasound poor reprodctv or 2-201 Reggie. Provider: Basilio HOLLIDAY, horacioet hx, second 8 700 Tanya PO Box triSupervision of [facility], 1522, other high risk Center [address], pregnancies, Drive, [place], second [address], [id number], trimesterPreg 120[place], [address]. [place] care for patient Freddie, tel:+ tel: w recurrent preg KS, [phone] 245117 loss, unsp [address], [email or web address] weeks [place]. gestation of tel: [phone] Associates Freddie Suprvsn of preg w Dec-2 Sobbing Referring In Womens poor reprodctv or 8-201 Reggie. Provider: horacio Penaet hx, second 7 700 [address]anya PO Box triSupervision of [facility], 1522, other high risk Center [address], pregnancies, Drive, [place], second [address], [id number], trimesterPreg 120[place], [address]. [place] care for patient Freddie, tel:+ tel:+ w recurrent preg KS, 2628719 424592 loss, unsp [address], [email or web address] weeks [place]. gestation of tel: [phone] Associates Freddie Suprvsn of preg w Nov-3 Sobbing Referring In Womens poor reprodctv or 0-201 Reggie. Provider: Basilio HOLLIDAY obstet hx, first 7 700 Tanya PO Box triSupervision of [facility], 1522, other high risk Center [address], pregnancies, Drive, [place], first [address], [id number], trimesterPreg 120[place], [address]. [place] care for patient Freddie, tel: tel:316 w recurrent preg [place], [phone] 5560[address] loss, unsp [address], [email or web address] weeks [place]. gestation of tel: [phone] Umesh Frazier Suprvsn of preg w Nov-0 Sobbing Referring In Womens poor reprodctv or 6-201 [place]. Provider: Basilio HOLLIDAY, obstet history, 7 700 [facility] unsp Medical [place] L, 1522, triSupervision of Center [address], other high risk Drive, Medical [place], pregnancies, Suite Center [id number], first 120, Drive [place] trimesterPreg Freddie, Suite [address], tel: care for patient Freddie [place], [place] [address], [place], [address]. loss, unsp [place]. tel: trimesterLess tel: [phone] than 8 weeks [phone] gestation of Associates Freddie Encounter for Oct-1 Sobbing Referring In Womens test, [place]. Provider: Basilio HOLLIDAY, result unknown 7 700 [facility], 1522, Center [address] [place], [place], [address], [id number], 120, [place], [address]. [place] Freddie, tel: tel: NE, [phone] [address], [place]. tel: [phone] Umesh Frazier Encounter for Oct-1 Sobbing In Womens test, 0-201 [place]. Basilio HOLLIDAY, result unknown 7 700 [facility] 1522, [place], [place], Suite [id number], 120, [place], [place]: [place], [address], [place]. tel: [phone] Umesh Frazier Encounter for Oct-0 Sobbing Referring In Womens test, 9 [place]. Provider: Basilio HOLLIDAY, result unknown 7 700 [facility] G, 1522, Center [address], [place], [address], [id number], 120, [place], [address]. [place] Freddie, tel: tel:316 [place], [phone] 697976 [address], [place]. tel:+06-25 [phone] Associates Freddie Recurrent Jearrdo-2 Garcia In Womens loss 9-201 Lois. Basilio HOLLIDAY, 7 700 [address] Medical [address], Center [address], Laith [place], 120, [id number], [place], tel:+ [phone] , [place]. tel: [phone] Associates Freddie Complete or unsp Feb-1 Garcia Referring In Womens spontaneous 3-201 Lois. Provider: Basilio HOLLIDAY, without 7 700 [address]anya PO Box complicationCompl Medical [facility], 1522, ete or unsp Center [address], spontaneous Laith [place], without 120, [address], [id number], [place], [address]. [place], tel:+ tel: [phone] [phone] , [place]. tel: [phone] Associates Freddie Complete or unsp Feb-1 Garcia Referring In Womens Ultrasound spontaneous 3-201 Lois. Provider: Basilio HOLLIDAY, without 7 700 Tanya PO Box [email or web address] Medical [facility], 1522, weeks gestation Center [address], of Laith [place], 120, [address], [id number], [place], [address]. [place], tel:+ tel: [phone] 244288 , [place]. tel: [phone] Associates Freddie Threatened Feb-0 Garcia Referring In Womens 7-201 Lois. Provider: Basilio HOLLIDAY, 7 700 Tanya PO Box [facility] [place] [facility], 1522, Center [address] [place], 120, [place], [id number], [place], [address]. [place], tel:+ tel:[phone] [phone] , [place]. tel: [phone] Associates Freddie Irregular Feb-0 Garcia Referring In Womens MensesPersonal 3-201 Lois. Provider: Basilio HOLLIDAY, history of comp 7 700 Tanya PO Box [facility] preg, [facility], 1522, and the puerp Center [address], [place], 120, [place], [id number], [place], [address]. [place], tel: tel: [phone] , [place]. 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 Provider: Health MG, (routine) w/o abn 6 700 Tanya PO Box findingsPap Smear [facility] [place] [facility], 1522, Screening, Center [address], CervixPap Smear , CHARLES Nelson, Screening, Cervix 120, [place], , [place], [address]. [place], tel: tel: [phone] , [place]. tel: [phone] Umesh Frazier Apr- Darrian Referring In Womens 7- Cassia. Provider: Health MG, 4 700 Gracy PO Box Medical [place] 1522, Center S, [address], [facility] [place], 120, Center [id number], Freddie [facility] 120, [place] Freddie SOTO, tel: [phone] [place], , [place]. [id number]. tel: tel: [phone] Umesh Frazier Nov- Supriya Referring In Womens 8-201 Gracy. Provider: Health MG, 4 700 Gracy PO Box Medical [place] 1522, Center S, [address], [facility] [place], 120, Center [id number], Freddie [facility] 120, [place] Freddie SOTO, tel:[phone] CHAR[place], , [place]. [id number]. tel: tel: [phone] Umesh Frazier Dec-0 Supriya In Womens 6-201 Gracy. Health MG, 2 700 PO [address] Medical [address], Center Dr Nan, [facility] [place], 120, [id number], [place], [place], tel:[phone] [address] , [place]. tel: [phone] Umesh Frazier Supriya In Womens 8-201 Gracy. [facility], 1 700 [facility] 1522, [place] [address], [facility] [place], 120, [id number], [facility] [place], tel:[phone] , [place]. tel: [phone] Family History Family Member Diagnosis Age At [...] party ID Authorization(s) [employer] [place] [id number] [employer] [place] [id number] [employer] [place] [id number] [employer] [place] [id number] [employer] [place] [id number] Social History Type Description Quantity Date Captured [...] Appointment Bhumika Ghotra BOOKED Appointment Bhumika Ghotra [facility] R C/S BOOKED Future Order: Radiology Order Biophysical Profile without NST Ordered ([id number]) Future Order: Radiology Order Ultrasound OB, Transvaginal ([id number] ) Ordered Future Order: Radiology Order Complete OB Ultrasound > 14 Ordered Weeks ([id number]) Future Order: Radiology Order Ultrasound OB Follow-up ([id number]) Ordered Future Order: Lab Order Pap Smear With HPV Reflex If ASCUS Ordered ([id number]) Future Order: Radiology Order Biophysical Profile without NST Ordered ([id number]) Future Order: Radiology Order Ultrasound OB Follow-up ([id number]) Ordered Future Order: Radiology Order Biophysical Profile without NST Ordered ([id number]) Future Order: Radiology Order Biophysical Profile without NST Ordered ([id number]) Date Type Problem Goal Intervention Status Start [...]
--- OUTSIDE RECORDS SUMMARY | 2017-10-19 14:16 | External Medical Summary | Continuity of Care Document ---
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) w/o abn findings Pap Smear Screening, Cervix Encounter for test, result unknown Encounter for test, result unknown Encounter for test, result - unknown Active Procedures Procedure Date Unknown Results Test Name Date and Time Measure Units Reference Range Abnormal Flag Comments Unknown Advance Directives Directive Yes / No Effective Date File Name Unknown Encounters Encounter Practice Location Reason(s) Diagnoses Date Provider Care Team Description For Visit Members Associates Freddie Sobbing In [facility] 2-201 Critical access hospital, 7 700 [address] Box [facility] [address], [place], [address] [id number], 120, [place] Freddie, tel:+ [place], 114, [place]. tel: [phone] Umesh Frazier Encounter for Oct-1 Sobbing Referring In Womens test, 1- Reggie. Provider: Basilio HOLLIDAY, result unknown 7 700 [facility]22, Center [address] [place], [place], [address], [id number], 120[place], [address]. [place] Freddie, tel: tel: [place], [phone], [place]. tel: [phone] Umesh Frazier Encounter for Oct-1 Sobbing In Womens test, 0-201 Reggie. Basilio HOLLIDAY, result unknown 7 700 [facility] 1522, [place], [place], [address] [id number], 120, [place], tel: [place], 114, [place]. tel: [phone] Umesh [place] Encounter for Oct-0 Sobbing Referring In Womens test, 9 [place]. Provider: Basilio HOLLIDAY, result unknown 7 700 [facility] 1522, Center [address] [place], [place], [address], [id number], 120, [place], [address]. [place] Freddie, tel: tel: [place], [phone] [address], [place]. tel: [phone] Umesh [place] Recurrent Jerardo-2 Garcia In Womens loss 9-201 Lois. Basilio HOLLIDAY, 7 700 [facility] 1522, [facility], Laith Santiago, 120, [id number], [place], [place], tel: [phone] , [place]. tel: [phone] Associates Freddie Complete or unsp Feb-1 Garcia Referring In Womens spontaneous 3-201 Lois. Provider: Basilio HOLLIDAY, without 7 700 Tanya PO Box [facility], 1522, ete or unsp Center [address], spontaneous , La[place], without 120, [place], , [place], [address]. [place], tel:+ tel: [phone] , [place]. tel: [phone] Associates Freddie Complete or unsp b- Garcia Referring In Womens Ultrasound spontaneous Lois. Provider: Basilio HOLLIDAY, without 7 700 Tanya PO Box [email or web address] [facility], 1522, weeks gestation Center [address], of , CHAR[place] Nelson, 120, [place], , [place], [address]. [place], tel:+ tel: [phone] , [place]. tel: [phone] Umesh [place] Threatened Jun-0 Garcia Referring In Womens Lois. Provider: Basilio HOLLIDAY, 7 700 Tanya PO Box [facility], 1522, Center [address], [place], 120, [place], , [place], [address]. [place], tel:+ tel: [phone] , [place]. tel: [phone] Associates Freddie Irregular b-0 Garcia Referring In Womens MensesPersonal - Lois. Provider: Basilio HOLLIDAY, history of comp 7 700 Tanya PO Box of preg, [facility], 1522, and the puerp Center [address], [place] Nelson, 120, [place], , [place], [address]. [place], tel:+ tel: [phone] , [place]. 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 Provider: Basilio HOLLIDAY, (routine) w/o abn 6 700 Tanya PO Box findingsPap Smear [facility], 1522, Screening, Center [address], CervixPap Smear , CHARLES Nelson, Screening, Cervix 120, [place], , [place], [address]. [place], tel: tel: [phone] , [place]. tel: [phone] Umesh [place] Apr- Darrian Referring In Womens 7-201 Cassia. Provider: Basilio HOLLIDAY, 4 700 Gracy PO Box Medical [place] 1522, Center S, [address], [facility] [place], 120, [place] [id number], [facility] 120, CHARLES, [place], tel: [phone] [place], , [place]. [id number]. tel: tel: [phone] Umesh [place] Hold[place] Referring In Womens 8-201 Gracy. Provider: Basilio HOLLIDAY, 4 700 Gracy PO Box Medical [place] 1522, Center S, [address] Dr [address], [facility] [place], 120, [place] [id number], [facility] 120, Freddie SOTO, tel:[phone] [place], , [place]. [id number]. tel: tel: [phone] Associates Freddie Apr-0 Holdeman In Womens 6-201 Gracy. Health MG, 2 700 [facility] Medical [address]22, [address], [facility] [place], 120, [id number], [place], [place], tel: [phone] , [place]. tel: [phone] Umesh [place] Dec-0 Holdeman In Womens 8-201 Gracy. Health MG, 1 700 [facility] Medical 1522, [place] [address] Nan, [facility] [place], 120, [id number], [place], tel: [phone] , [place]. tel: [phone] Family History Family Member Diagnosis Age At Onset Paternal Grandmother Cancer, breast Maternal Grandmother Cancer, breast Immunizations Vaccine Date Status Comments Influenza, injectable, completed Source: New Immunization Record quadrivalent, preservative free, 3 yrs or older Tdap completed Source: New Immunization Record Payers Payer name Insurance type Covered green party ID Authorization(s) BC[employer] Out Of [place] [id number] BC[employer] Out Of [place] [id number] BC[employer] Out Of [place] [id number] Social History Type Description Quantity Date Captured [...] Future Order: Radiology Order Ultrasound OB, Transvaginal ([id number] ) Ordered Date Type Problem Goal Intervention [...]
--- OUTSIDE RECORDS SUMMARY | 2017-10-19 14:16 | External Medical Summary | Continuity of Care Document ---
:1985 Author Organization [facility] [employer] [facility] Address [address] [place], [place] [id number] Phone Care Team Providers Name Role Phone [...] tri, unsp 33 weeks gestation of - Suprvsn of preg [...] poor fetl - grth, third tri, unsp 35 weeks gestation of - Supervision of other high risk - pregnancies, third trimester Maternal care for oth - abnormality and damage, unsp Matern care for oth or susp poor fetl - grth, third tri, unsp 30 weeks gestation of - Supervision of other high risk - pregnancies, third trimester Gestational htn w/o significant - proteinuria, third trimester Low weight gain in , third - trimester Previous Low Transverse - Supervision of other high risk - [...] Previous Low Transverse - Threatened Encntr for organic search lead exam (general) - (routine) w/o abn findings [...] Sobbing Referring In Womens other high risk 7-201 Reggie. Provider: Health PA, pregnancies, 8 700 Tanya [address] Box [facility] Cole G, 1522, trimesterGestatio Center [address], nal htn w/o Drive, [place], [place], significant [address], [id number], proteinuria, 120[place], [address]. [facility] Freddie, tel:[phone] tel:[phone] trimesterLow [place], [id number] [place] [address], , third [place]. trimesterPrevious tel:+06-25 Low Transverse [id number] Associates Freddie Supervision of September- Sobbing Referring In Womens Ultrasound other high risk 7-201 Reggie. Provider: Basilio HOLLIDAY, pregnancies, 8 700 [address] third Medical Cole G, 1522, trimesterMaternal Center [address], care for oth Drive, [place], abnormality [address], [id number], and damage, 120[place], [address]. [place] unspMatern care Freddie, tel:+ tel:+ for oth or susp [place], [phone] poor fetl grth, [address], third tri, unsp35 [place]. weeks gestation tel:+06-25 of [phone] Umesh Frazier Supervision of September- Sobbing Referring In Womens other high risk 0-201 Reggie. Provider: Basilio HOLLIDAY, pregnancies, 8 700 [address] third Medical Cole G, 1522, trimesterLow Center [address], weight gain in [facility], [place], , third [address], [id number], trimesterPreg 120[place], [address]. [place] care for patient Freddie, tel:+ tel:+ w recurrent preg [place], [phone] [phone] loss, unsp [address], trimesterPrevious [place]. Low Transverse tel: [phone] Umesh Frazier Suprvsn of preg w September-1 Sobbing Referring In Womens Ultrasound poor reprodctv or 0-201 Reggie. Provider: Basilio HOLLIDAY, obstet hx, third 8 700 Tanya PO Box triMaternal care Medical Cole G, 1522, for oth Center [address], abnormality and Drive, [place], damage, [address], [id number], unspMatern [place] 120[place], [address]. [place] for oth or susp Freddie, tel:+ tel:+316 poor fetl grth, [place], [phone] third tri, unsp34 [address], weeks gestation [place]. of tel:[phone] [phone] Umesh Frazier Supervision of September-0 Sobbing Referring In Womens other high risk 3-201 [place]. Provider: Basilio HOLLIDAY, pregnancies, 8 700 Tanya PO Box third [facility] G, 1522, trimesterPreg Center [address], care for patient Pasquale, [place], w recurrent preg [address], [id number], loss, unsp 120[place], [address]. [place] trimesterPrevious [place], tel:+ tel:+ [place] Transverse [place], [phone] C-SectionMatern [address], care for oth or [place]. susp poor fetl tel:+06-25 grth, third tri, [phone] unsp Umesh Frazier Supervision of September-0 Sobbing Referring In Womens Ultrasound other high risk [place]. Provider: Basilio HOLLIDAY, pregnancies, 8 700 Tanya PO Box third Medical [place] G, 1522, trimesterMaternal Center [address], care for oth [address], [place], abnormality [address], [id number], and damage, 120[place], [address]. [place] unspMatern care [place], tel:+ tel:+ for oth or susp [place], [phone] poor fetl grth, [address], third tri, unsp33 [place]. weeks gestation tel:+06-25 of [phone] Umesh Frazier Suprvsn of preg w Apr-2 Sobbing Referring In Womens poor reprodctv or [place]. Provider: Basilio HOLLIDAY, obstet hx, third 8 700 Tanya PO Box triSupervision of [facility] G, 1522, other high risk Center [address], pregnancies, Drive, [place], [place], third [address], [id number], trimesterPreg 120[place], [address]. [place] care for patient Freddie, tel:+ tel:+[phone] w recurrent preg [place], [phone] [phone] loss, unsp [address], trimesterMatern [place]. care for oth or tel:+06-25 susp poor fetl [phone] grth, third tri, unsp Umesh Frazier Supervision of Apr-2 Sobbing Referring In Womens Ultrasound other high risk [place]. Provider: Basilio HOLLIDAY, pregnancies, 8 700 Tanya PO Box third Medical [place] G, 1522, trimesterMaternal Center [address], care for oth [address], [place], abnormality [address], [id number], and damage, 120[place], [address]. [place] unspMatern care [place], tel:+ tel: for oth or susp KS, [phone] poor fetl grth, [address], third tri, unsp32 US. weeks gestation tel:+06-25 of [phone] Associates Freddie Suprvsn of preg w Apr-1 Sobbing Referring In Womens poor reprodctv or 8-201 Reggie. Provider: Basilio HOLLIDAY, obstet hx, third 8 700 Tanya PO Box triSupervision of Medical [place] G, 1522, other high risk Center [address], pregnancies, Drive, [place], [place], third [address], [id number], [place] 120[place], [address]. [place] weight gain in Freddie, tel: tel: , third [place], [phone] [id number] weeks [address], gestation of [place]. tel: [phone] Umesh Frazier Supervision of Apr-1 Sobbing Referring In Womens Ultrasound other high risk 8 [place]. Provider: Basilio HOLLIDAY, pregnancies, 8 700 Tanya PO Box third Medical [place], 1522, trimesterMaternal Center [address], care for oth [address], [place], abnormality [address], [id number], and damage, 120[place], [address]. [place] unspMatern care [place], tel: tel: for oth or susp KS, [phone] poor fetl grth, [address], third tri, unsp31 US. weeks gestation tel:+06-25 of [phone] Associates Freddie Suprveran of preg w Apr-1 Sobbing Referring In Womens poor reprodctv or 2-201 Reggie. Provider: Basilio HOLLIDAY, obstet hx, third 8 700 Tanya PO Box triSupervision of Medical [place] G, 1522, other high risk Center [address], pregnancies, Drive, [place], [place], third [address], [id number], [place] 120[place], [address]. [place] weight gain in Freddie, tel: tel: , third [place], [phone] trimesterPreg [address], care for patient [place]. w recurrent preg tel:+06-25 loss, unsp [phone] trimester Associates Freddie Supervision of Apr-1 Sobbing Referring In Womens Ultrasound other high risk 2-201 Reggie. Provider: Basilio HOLLIDAY, pregnancies, 8 700 Tanya PO Box third Medical [place] G, 1522, trimesterMaternal Center [address], care for oth Drive, [place], abnormality [address], [id number], and damage, 120[place], [address]. [place] unspMatern care Freddie, tel: tel: for oth or susp KS, [phone] poor fetl grth, [address], third tri, unsp30 US. weeks gestation tel: of [phone] Associates Freddie Suprvsn of preg w Apr-0 Sobbing Referring In Womens poor reprodctv or 6-201 Reggie. Provider: Basilio HOLLIDAY, obstet hx, third 8 700 Tanya PO Box triSupervision of [facility], 1522, other high risk Center [address], pregnancies, Drive, [place], [place], third [address], [id number], [place] 120[place], [address]. [place] weight gain in Freddie, tel: tel: , third [place], [phone] [id number] weeks [address], gestation of [place]. tel: [phone] Associates Freddie Suprvsn of preg w Mar-2 Sobbing Referring In Womens poor reprodctv or 2-201 Reggie. Provider: Basilio HOLLIDAY, obstet hx, second 8 700 Tanya PO Box triSupervision of [facility] G, 1522, other high risk Center [address], pregnancies, Drive, [place], second [address], [id number], [id number] weeks 120, [place], [address]. [place] gestation of Freddie, tel: tel:[phone] [place], [id number] 174428 [address], [place]. tel: [phone] Umesh Frazier Suprvsn of preg w Sobbing Referring In Womens Ultrasound poor reprodctv or Reggie. Provider: Basilio HOLLIDAY, horacioet hx, second 8 700 Tanya PO Box triSupervision of [facility], 1522, other high risk Center [address], pregnancies, Drive, [place], second [address], [id number], [place]aternal 120[place], [address]. [place] care for oth Freddie, tel:+ tel: abnormality [place], [phone] 695696 and damage, [address], unsp27 weeks US. gestation of tel: [phone] Associates Freddie Suprvsn of preg w Sobbing Referring In Womens poor reprodctv or Reggie. Provider: horacio Penaet hx, second 8 700 Tanya PO Box triSupervision of [facility], 1522, other high risk Center [address], pregnancies, Drive, [place], second [address], [id number], trimesterPreg 120[place], [address]. [place] care for patient Freddie, tel: tel: w recurrent preg KS, [phone] 530077 loss, unsp [address], [id number] weeks [place]. gestation of tel: [phone] Umesh Frazier Supervision of Sobbing Referring In Womens other high risk [place]. Provider: Basilio HOLLIDAY, pregnancies, 8 700 Tanya PO Box second Medical [facility], 1522, trimesterPreg Center [address], care for patient Drive, [place], w recurrent preg [address], [id number], loss, [place]sp 120[place], [address]. [place] [id number] weeks Freddie, tel: tel: gestation of [place], [phone] 768457 [address], [place]. tel: [phone] Umesh Frazier Suprvsn of preg w Sobbing Referring In Womens Ultrasound poor reprodctv or [place]. Provider: Basilio HOLLIDAY, obstet hx, second 8 700 Tanya PO Box triSupervision of [facility] G, 1522, other high risk Center [address], pregnancies, Drive, [place], second [address], [id number], trimesterP[place] 120[place], [address]. [place] care for patient Freddie, tel:+ tel:+[phone] w recurrent preg KS, 8009556 551275 loss, unsp [address], [id number] weeks [place]. gestation of tel:+06-25 [phone] Associates Freddie Suprvsn of preg w Dec-2 Sobbing Referring In Womens poor reprodctv or 8-201 Reggie. Provider: Basilio HOLLIDAY, horacioet hx, second 7 700 Tanya PO Box triSupervision of [facility] G, 1522, other high risk Center [address], pregnancies, Drive, [place], second [address], [id number], trimesterPreg 120[place], [address]. [place] care for patient Freddie, tel:+ tel:+3162 w recurrent preg KS, [phone] 622915 loss, unsp [address], [id number] weeks US. gestation of tel:+06-25 [phone] Associates Freddie Suprvsn of preg w Nov-3 Sobbing Referring In Womens poor reprodctv or 0-201 [place]. Provider: Basilio HOLLIDAY, horacioet hx, first 7 700 [facility] PO Box triSupervision of [facility] G, 1522, other high risk Center [address], pregnancies, Drive, [place], first [address], [id number], trimesterPreg 120[place], [address]. [place] care for patient Freddie, tel:+ tel:+3162 w recurrent preg [place], 0323227 617405 loss, unsp [address], [id number] weeks US. gestation of tel:+06-25 [phone] Associates Freddie Suprvsn of preg w Nov-0 Sobbing Referring In Womens poor reprodctv or 6-201 Reggie. Provider: Basilio HOLLIDAY, horacioet history, 7 700 [place] PO Box unsp Medical [place] L, 1522, triSupervision of Center [address], other high risk Drive, Medical [place], pregnancies, Suite Center [id number], first 120, Drive trimesterPreg Freddie, [address], tel: care for patient Freddie S[place], [place] [address], [place], [address]. loss, unsp [place]. tel: trimesterLess tel: [phone] than 8 weeks [id number] gestation of Associates Freddie Encounter for Oct-1 Sobbing Referring In Womens test, 1 [place]. Provider: Basilio HOLLIDAY, result unknown 7 700 [facility]22, Center [address], [place], [address], [id number], 120, [place], [address]. [place] Freddie, tel: tel: [place], [phone], [place]. tel: [phone] Umesh Frazier Encounter for Oct-1 Sobbing In Womens test, 0-201 [place]. Basilio HOLLIDAY, result unknown 7 700 [facility] Medical 1522, [place], [place], Suite [id number], 120, Freddie, tel: CHARLES, 114, [place]. tel: [phone] Umesh Frazier Encounter for Oct-0 Sobbing Referring In Womens test, 9 [place]. Provider: Basilio HOLLIDAY, result unknown 7 700 [facility]22, Center [address], [place], [address], [id number], 120, [place], [address]. [place] Freddie, tel: tel: [place], [phone], [place]. tel: [phone] Umesh Frazier Recurrent Jerardo-2 Garcia In Womens loss 9-201 Lois. Basilio HOLLIDAY, 7 700 PO [address] Medical [address], [place] [address], [facility] [place], 120, , [place], [place] CHARLES, tel: [phone] 1947[address] , [place]. tel: [phone] Umesh Frazier Complete or unsp Feb-1 Garcia Referring In Womens spontaneous 3-201 Lois. Provider: Basilio HOLLIDAY, without 7 700 Tanya PO Box complicationCompl Medical Cole G, 1522, ete or unsp Center [address], spontaneous Laith [place], without 120, [address], [id number], [place], [address]. [place], tel:+ tel: [phone] , [place]. tel: [phone] Associates Freddie Complete or unsp Feb-1 Garcia Referring In Womens Ultrasound spontaneous 3-201 Lois. Provider: Basilio HOLLIDAY, without 7 700 Tanya PO Box [id number] [facility], 1522, weeks gestation Center [address], of , CHARLES [place], 120, [place], , CHARLES [place], [address]. [place], tel:+ tel:[phone] [id number] , [place]. tel: [phone] Umesh Frazier Threatened Feb-0 Garcia Referring In Womens 7- Lois. Provider: Basilio HOLLIDAY, 7 700 Tanya PO Box [facility], 1522, Center [address], Laith Devries, CHARLES, 120, [place], [id number], CHAR[place], [address]. [place], tel: tel: [phone] , [place]. tel: [phone] Umesh Frazier Irregular Feb-0 Garcia Referring In Womens MensesPersonal 3-201 Lois. Provider: Basilio HOLLIDAY, history of comp 7 700 Tanya PO Box of preg, chldbrth [facility] G, 1522, and the puerp Center [address] [place], 120, [place], [id number], CHARLES [place], [address]. [place], tel:+ tel: [phone] , [place]. tel:+06-25 [phone] Associates Freddie Encntr for organic search lead Oct-3 Sagastume Referring In Womens exam (general) 1- Carrie. Provider: Basilio HOLLIDAY, (routine) w/o abn 6 700 Tanya PO Box findingsPap Smear Medical [place] G, 1522, Screening, Center [address], CervixPap Smear , [facility] [place], Screening, Cervix 120, [place], [id number], [place], [address]. [place], tel: tel: [phone] [phone] , [place]. tel: [phone] Umesh Frazier Dec- Darrian Referring In Womens 7-201 Cassia. Provider: Health MG, 4 700 Gracy PO Box Medical [place] 1522, Center S, [address], [facility], 120, [place] [id number], Freddie [facility] 120, CHARLES, Freddie, tel:[phone] [place], , [place]. [id number]. tel: tel: [phone] Umesh Frazier Mar- Supriya Referring In Womens 8-201 Gracy. Provider: Health MG, 4 700 Gracy PO Box [facility], Center S, [address], [facility], 120, [place] [id number], Freddie [facility] 120, CHARLES, Freddie, tel:[phone] [place], , [place]. [id number]. tel: tel: [phone] Umesh Frazier Dec-0 [place] In Womens 6-201 Gracy. Health MG, 2 700 [facility] Medical [address], [place] [address], [facility], 120, [id number], [place], [place], tel: [phone] , [place]. tel: [phone] Umesh Frazier Dec-0 [place] In Womens 8-201 Gracy. Health PA, 1 700 [facility] Medical [address], [place] [address], [facility] [place], 120, [id number], [place], [place], tel: [phone] , [place]. tel: [phone] Family History Family Member Diagnosis Age At [...] democrat ID Authorization(s) [employer] [place] [id number] [employer] [place] [id number] [employer] [place] BL [id number] [employer] [place] BL [id number] [employer] [place] [id number] Social History Type Description Quantity Date Captured [...] Appointment Bhumika Ghotra BOOKED Appointment Bhumika Ghotra [facility] [place] Future Order: Radiology Order Biophysical Profile without NST Ordered ([id number]) Future Order: Radiology Order Ultrasound OB, Transvaginal ([id number] ) Ordered Future Order: Radiology Order Complete OB Ultrasound > 14 Ordered Weeks ([id number]) Future Order: Radiology Order Ultrasound OB Follow-up ([id number]) Ordered Future Order: Radiology Order Ultrasound OB Follow-up ([id number]) Ordered Future Order: Radiology Order Biophysical Profile without NST Ordered ([id number]) Future Order: Lab Order Pap Smear With HPV Reflex If ASCUS Ordered ([id number]) Future Order: Radiology Order Biophysical Profile without NST Ordered ([id number]) Future Order: Radiology Order Biophysical Profile without NST Ordered ([id number]) Future Order: Radiology Order Ultrasound OB Follow-up ([id number]) Ordered Future Order: Radiology Order Biophysical Profile without NST Ordered ([id number]) Future Order: Radiology Order Biophysical Profile without NST Ordered ([id number]) Date Type Problem Goal Intervention Status Start [...]
--- OUTSIDE RECORDS SUMMARY | 2017-10-19 14:17 | External Medical Summary | Continuity of Care Document ---
:1985 Author Organization [facility] Address [address] [place], [place] [id number] Phone Care Team Providers Name Role Phone [...] weeks gestation of - Threatened Encntr for gynecological assistant exam (general) - (routine) w/o abn findings [...] Care Team Description For Visit Members Umesh Olveran of preg w Aug-2 Sobbing Referring In Womens poor reprodctv or 6- Grenola. Provider: Basilio HOLLIDAY, obstet hx, third 8 700 [address] PO Box [facility], 1522, other high risk Center [address], pregnancies, [address], [place], [place], third [address], [id number], trimesterPreg 120, [place], [address]. [place] care for patient [place], tel:+ tel:+316 w recurrent preg [place], [phone] [phone] loss, unsp [address], trimesterMatern [place]. care for oth or tel:+06-25 susp poor fetl [phone] grth, third tri, unsp [facility] Supervision of Apr-2 Sobbing Referring In Womens Ultrasound other high risk Grenola. Provider: Basilio HOLLIDAY, pregnancies, 8 700 Tanya PO Box third [facility], 1522, trimesterMaternal Center [address], care for oth [address], [place], [place], abnormality [address], [id number], and damage, 120[place], [address]. [place] unspMatern care Freddie, tel:+ tel:+ for oth or susp [place], [phone] poor fetl grth, [address], third tri, unsp32 [place]. weeks gestation tel:+06-25 of [phone] Umesh Frazier Suprvsn of preg w Apr-1 Sobbing Referring In Womens poor reprodctv or - Grenola. Provider: Basilio HOLLIDAY, obstet hx, third 8 700 Tanya PO Box [facility], 1522, other high risk Center [address], [address], [address], [place], third [address], [id number], trimester[place] 120[place], [address]. [place] weight gain in Freddie, tel:+ tel:+[phone] , third [place], [phone] [id number] weeks 62903, gestation of [place]. tel:[phone] Umesh Frazier Supervision of Apr-1 Sobbing Referring In Womens Ultrasound other high risk Grenola. Provider: Basilio HOLLIDAY, pregnancies, 8 700 [address] PO Box third [facility], 1522, trimesterMaternal Center [address], [address], [place], abnormality [address], [id number], and damage, 120[place], [address]. [place] unspMatern care [place], tel:+ tel: for oth or susp KS, [phone] poor fetl grth, [address], third tri, unsp31 [place]. weeks gestation tel:+06-25 of [phone] Umesh Frazier Suprvsn of preg w Apr-1 Sobbing Referring In Womens poor reprodctv or 2-201 Grenola. Provider: Basilio HOLLIDAY, obstet hx, third 8 700 Tanya PO Box [facility], 1522, other high risk Center [address], [address], [address], [place], third [address], [id number], [place] 120[place], [address]. [place] weight gain in Freddie, tel: tel: , third [place], [phone] trimesterPreg [address], care for patient [place]. w recurrent preg tel:+06-25 loss, unsp [phone] trimester [facility] Supervision of Apr-1 Sobbing Referring In Womens Ultrasound other high risk 2-201 [place]ola. Provider: Basilio HOLLIDAY, pregnancies, 8 700 Tanya PO Box third [facility], 1522, trimesterMaternal Center [address], care for oth [address], [place], abnormality [address], [id number], and damage, 120[place], [address]. [place] unspMatern care Freddie, tel: tel: for oth or susp [place], [phone] poor fetl grth, [address], third tri, unsp30 US. weeks gestation tel:+06-25 of [phone] Umesh Frazier Suprvsn of preg w Apr-0 Sobbing Referring In Womens poor reprodctv or 6-201 [place]ola. Provider: Basilio HOLLIDAY, obstet hx, third 8 700 Tanya PO Box [facility], 1522, other high risk Center [address], pregnancies, [address], [place], third [address], [id number], trimester[place] 120[place], [address]. [place] weight gain in Freddie, tel: tel: , third [place], [phone] 030953 weeks [address]7513, gestation of [place]. tel: [phone] [facility] Suprvsn of preg w Jul- Sobbing Referring In Womens poor reprodctv or Reggie. Provider: Basilio HOLLIDAY, obstet hx, second 8 700 Tanya PO Box [facility], 1522, other high risk Center [address], pregnancies, [address], [place], second [address], [id number], [id number] weeks 120, [place], [address]. [place] gestation of Freddie, tel: tel: KS, [phone] [address], [place]. tel: [phone] [facility] Suprvsn of preg w Jul- Sobbing Referring In Womens Ultrasound poor reprodctv or Reggie. Provider: Basilio HOLLIDAY, obstet hx, second 8 700 Tanya PO Box [facility], 1522, other high risk Center [address], pregnancies, Drive, [place], second [address], [id number], trimester[place] 120[place], [address]. [place] care for oth Freddie, tel: tel: abnormality [place], [phone] and damage, [address], unsp27 weeks [place]. gestation of tel: [phone] [facility] Suprvsn of preg w Jun- Sobbing Referring In Womens poor reprodctv or Gren[place]. Provider: Basilio HOLLIDAY obstet hx, second 8 700 Tanya PO Box [facility], 1522, other high risk Center [address], pregnancies, [address], [place], second [address], [id number], trimesterPreg 120[place], [address]. [place] care for patient Freddie, tel: tel: w recurrent preg KS, [phone] [phone] loss, unsp [address], [id number] weeks [place]. gestation of tel:[phone] [facility] Supervision of Sobbing Referring In Womens other high risk 2- [place]. Provider: Basilio HOLLIDAY, pregnancies, 8 700 [address]anya PO Box second Medical [facility], 1522, trimesterPreg Center [address], care for patient Kayce Giordano, CHARLES, w recurrent preg [address], [id number], loss, unsp 120[place], [address]. [place] [id number] weeks Freddie, tel:+ tel:+2 gestation of [place], [phone] [phone], [place]. tel: [phone] [facility] Suprvsn of preg w Sobbing Referring In Womens Ultrasound poor reprodctv or 2 Reggie. Provider: Basilio HOLLIDAY, horacioet hx, second 8 700 Tanya PO Box [facility], 1522, other high risk Center [address], pregnancies, Pasquale, [place], second [address], [id number], trimesterPreg 120[place], [address]. [place] care for patient Freddie, tel:+ tel:+316 w recurrent preg KS, [phone] 524783 loss, unsp [address], [id number] weeks [place]. gestation of tel: [phone] [facility] Suprvsn of preg w Sobbing Referring In Womens poor reprodctv or 8-201 Reggie. Provider: horacio Penaet hx, second 7 700 Tanya PO Box [facility], 1522, other high risk Center [address], pregnancies, Pasquale, [place], second [address], [id number], trimesterPreg 120, [place], [address]. [place] care for patient Freddie, tel:+ tel:+3162 w recurrent preg KS, [phone] 372556 loss, unsp [address], [id number] weeks [place]. gestation of tel:+06-25 [phone] [facility] Suprvsn of preg w Nov-3 Sobbing Referring In Womens poor reprodctv or 0-201 Reggie. Provider: Basilio HOLLIDAY, obstet hx, first 7 700 Tanya PO Box [facility], 1522, other high risk Center [address], pregnancies, [address], [place], [place], first [address], [id number], trimesterPreg 120, [place], [address]. [place] care for patient Freddie, tel: tel:2 w recurrent preg KS, 7492347 589309 loss, unsp [address], [id number] weeks [place]. gestation of tel: [phone] [facility] Suprvsn of preg w Nov-0 Sobbing Referring In Womens poor reprodctv or 6-201 Reggie. Provider: Basilio HOLLIDAY, obstet history, 7 700 [facility] Box unsp Medical [place] L, 1522, triSupervision of Center [address], other high risk [address], Medical [place], pregnancies, Suite Center [id number], first 120, Drive [place] trimesterPreg Freddie, [address], tel: care for patient Freddie SOTO, [place] [address], [place], [address]. loss, unsp [place]. tel: trimesterLess tel: [phone] than 8 weeks [phone] gestation of [facility] Encounter for Oct-1 Sobbing Referring In Womens test, 1 [place]. Provider: Basilio HOLLIDAY, result unknown 7 700 [facility] 1522, Center [address] [place], [place], [address], [id number], 120, [place], [address]. [place], tel: tel: [place], [phone] [address], [place]. tel: [phone] Umesh Frazier Encounter for Oct-1 Sobbing In Womens test, 0-201 Grenola. Basilio HOLLIDAY, result unknown 7 700 [facility] 1522, [place], [place], [address] [id number], 120, [place] Freddie, tel: AR, [phone] [address], [place]. tel: [phone] Umesh Frazier Encounter for Oct-0 Sobbing Referring In Womens test, 9-201 [place]. Provider: Basilio HOLLIDAY, result unknown 7 700 [facility], 1522, Center [address] [facility], CHARLES, [address], [id number], 120[place], [address]. [place], tel: tel: AR, [phone] [address], [place]. tel: [phone] [facility] Recurrent Jerardo-2 Garcia In Womens loss 9-201 Lois. Health MG, 7 700 PO Box Medical [address], Center [address], Laith SOTO, 120, [id number], [place], tel: [phone] , [place]. tel: [phone] [facility] Complete or unsp Feb-1 Garcia Referring In Womens spontaneous 3-201 Lois. Provider: Health MG, without 7 700 Tanya PO Box complicationCompl [facility], 1522, ete or unsp Center [address], spontaneous Laith [place], without [address], [address], [id number], [place], [address]. [place], tel: tel:[phone] , [place]. tel: [phone] [facility] Complete or unsp Feb-1 Garcia Referring In Womens Ultrasound spontaneous 3-201 Lois. Provider: Basilio HOLLIDAY, without 7 700 [address] PO Box [id number] [facility], 1522, weeks gestation Center [address], of Laith [place], 120, [address], [id number], [place], [address]. [place], tel: tel: [phone] , [place]. tel: [phone] [facility] Threatened Feb-0 Garcia Referring In Womens 7-201 Lois. Provider: Basilio HOLLIDAY, 7 700 Tanya PO Box Medical [facility], 1522, Center [address] [place], 120, [address], [id number], [place], [address]. [place], tel: tel:[phone] , [place]. tel: [phone] Umesh Frazier Irregular Jun- Garcia Referring In Womens MensesPersonal 3- Lois. Provider: Basilio HOLLIDAY, history of comp 7 700 [address]anya PO Box of preg, [facility], 1522, and the puerp Center [address], Laith Dev[place], 120, [address], [id number], [place], [address]. [place], tel: tel: [phone] , [place]. tel: [phone] Umesh Frazier Encntr for gynecological assistant Feb- Sagastume Referring In Womens exam (general) 1- Carrie. Provider: Basilio HOLLIDAY, (routine) w/o abn 6 700 Tanya PO Box findingsPap Smear [facility], 1522, Screening, Center [address], CervixPap Smear , Laith Devries [place], Screening, Cervix 120, [address], [id number], [place], [address]. [place], tel: tel: [phone] , [place]. tel: [phone] Umesh [place]ier Darrian Referring In Womens 7- Cassia. Provider: Basilio HOLLIDAY, 4 700 Gracy PO Box [facility], Center S, [address], [facility], 120, Center [id number], Freddie [facility] 120, [place] Freddie SOTO, tel: [phone] [place], , [place]. [id number]. tel: tel: [phone] Umesh [place]ier Supriya Referring In Womens 8-201 Gracy. Provider: Basilio HOLLIDAY, 4 700 [address] PO Box Medical [place] 1522, Center S, [address], [facility], 120, Center [id number], Freddie [facility] 120, [place] Freddie SOTO, tel: [phone] [place], , [place]. [id number]. tel: tel: [phone] Umesh Frazier [place]eman In Womens 6-201 Gracy. [facility], 2 700 [address] Medical [address], [address], [facility] [place], 120, [id number], [facility] [place], tel:[phone] , [place]. tel: [phone] Umesh Frazier Dec-0 Holdeman In Womens 8-201 Gracy. [facility], 1 700 [address] Medical [address], [address], [facility] [place], 120, [id number], [facility] [place], tel:[phone] [phone] , [place]. tel: [phone] Family History Family Member Diagnosis Age At [...] republican ID Authorization(s) [employer] [place] [id number] [employer] [place] [id number] [employer] [place] [id number] [employer] [place] [id number] [employer] [place] [id number] Social History Type Description Quantity Date Captured Alcohol Use Details No Caffeine Use Details Unknown Tobacco Use Status Unknown Smoking Status Never smoker Vital Signs Date / Height Weight BMI Pulse Blood Temperature Respiratory Body Head BMI Time: Rate Pressure Rate Surface Circumference percentile Area 139.20 23.1 lbs 6 11:42 kg/m AM eter (2) Chief Complaint And [...] Ghotra BOOKED Appointment Bhumika Ghotra [facility] [place] Future Order: Radiology Order Ultrasound OB, Transvaginal ([id number] ) Ordered Future Order: Radiology Order Complete OB Ultrasound > 14 Ordered Weeks ([id number]) Future Order: Radiology Order Ultrasound OB Follow-up ([id number]) Ordered Future Order: Lab Order Pap Smear With HPV Reflex If ASCUS Ordered ([id number]) Future Order: Radiology Order Biophysical Profile without NST Ordered ([id number]) Future Order: Radiology Order Ultrasound OB Follow-up ([id number]) Ordered Future Order: Radiology Order Biophysical Profile without NST Ordered ([id number]) Future Order: Radiology Order Biophysical Profile without NST Ordered ([id number]) Date Type Problem Goal Intervention Status Start [...]
--- OUTSIDE RECORDS SUMMARY | 2017-10-19 14:17 | External Medical Summary | Continuity of Care Document ---
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) w/o abn findings Pap Smear Screening, Cervix Encounter for test, result unknown Encounter for test, result unknown Encounter for test, result - unknown Active Procedures Procedure Date Ultrasnd preg uterus, flwup/repeat biophys prfl w/o nstress test Results Test Name Date and Time Measure Units Reference Range Abnormal Flag Comments Unknown Advance Directives Directive Yes / No Effective Date File Name Unknown Encounters Encounter Practice Location Reason(s) Diagnoses Date Provider Care Team Description For Visit Members Umesh Olveran of preg w Apr-2 Sobbing Referring In Womens poor reprodctv or [place]. Provider: horacio Penaet hx, third 8 700 Tanya PO Box [facility]Supervision of [facility], 1522, other high risk Center [address], pregnancies, [address], [place], [place], third [address], [id number], trimesterPreg 120, [place], [address]. [place] care for patient [place], tel:+ tel:+316 w recurrent preg [place], [id number] loss, unsp [address], trimesterMatern [place]. care for oth or tel:+06-25 susp poor fetl [id number] grth, third tri, unsp [facility] Supervision of Apr-2 Sobbing Referring In Womens Ultrasound other high risk [place]. Provider: Basilio HOLLIDAY, pregnancies, 8 700 Tanya PO Box third Medical [facility] G, 1522, trimesterMaternal Center [address], care for oth [address], [place], abnormality [address], [id number], and damage, 120[place], [address]. [place] unspMatern care [place], tel:+ tel:+ for oth or susp [place], [phone] poor fetl grth, [address], third tri, unsp32 [place]. weeks gestation tel:+06-25 of [phone] Umesh Frazier Suprvsn of preg w Apr-1 Sobbing Referring In Womens poor reprodctv or [place]. Provider: alessandra Pena hx, third 8 700 Tanya PO Box [facility]Supervision of [facility], 1522, other high risk Center [address], pregnancies, [address], [place], third [address], [id number], [place] 120[place], [address]. [place] weight gain in Freddie, tel:+ tel:+316 , third [place], [phone] [id number] weeks 60[address], gestation of [place]. tel: [phone] Umesh [place] Supervision of Apr-1 Sobbing Referring In Womens Ultrasound other high risk [place]. Provider: Basilio HOLLIDAY, pregnancies, 8 700 Tanya PO Box third Medical [facility] G, 1522, trimesterMaternal Center [address], care for o[address], [place], abnormality [address], [id number], and damage, 120[place], [address]. [place] unspMatern care [place], tel:+ tel:+ for oth or susp [place], [phone] poor fetl grth, [address], third tri, unsp31 [place]. weeks gestation tel:+06-25 of [phone] [facility] Suprvsn of preg w Apr-1 Sobbing Referring In Womens poor reprodctv or 2-201 Reggie. Provider: Basilio HOLLIDAY, obstet hx, third 8 700 Tanya PO Box triSupervision of Medical [facility] G, 1522, other high risk Center [address], pregnancies, Drive, [place], third [address], [id number], [place] 120[place], [address]. [place] weight gain in [place], tel:+ tel:+316 , third [place], [phone] trimesterPreg [address], care for patient [place]. w recurrent preg tel:+06-25 loss, unsp [phone] trimester [facility] Supervision of Apr-1 Sobbing Referring In Womens Ultrasound other high risk 2-201 [place]. Provider: Basilio HOLLIDAY, pregnancies, 8 700 Tanya PO Box third Medical [facility], 1522, trimesterMaternal Center [address], care for oth [address], [place], abnormality [address], [id number], and damage, 120[place], [address]. [place] unspMatern care [place], tel:+ tel:+316 for oth or susp [place], [phone] poor fetl grth, [address], third tri, unsp30 US. weeks gestation tel:+31 of [phone] [facility] Suprvsn of preg w Apr-0 Sobbing Referring In Womens poor reprodctv or 6-201 Reggie. Provider: Basilio HOLLIDAY, obstet hx, third 8 700 Tanya PO Box triSupervision of Medical [facility] G, 1522, other high risk Center [address], pregnancies, Drive, [place], third [address], [id number], [place] 120[place], [address]. [place] weight gain in Freddie, tel:+ tel: , third [place], [phone] 740251 [email or web address] weeks [address], gestation of [place]. tel: [phone] [facility] Suprvsn of preg w Mar-2 Sobbing Referring In Womens poor reprodctv or Reggie. Provider: Basilio HOLLIDAY, obstet hx, second 8 700 Tanya PO Box triSupervision of [facility], 1522, other high risk Center [address], pregnancies, Drive, [place], second [address], [id number], [id number] weeks 120[place], [address]. [place] gestation of Freddie, tel: tel: [place], [phone] [address], [place]. tel: [phone] [facility] Suprvsn of preg w Jul-2 Sobbing Referring In Womens Ultrasound poor reprodctv or Reggie. Provider: Basilio HOLLIDAY, obstet hx, second 8 700 Tanya PO Box [facility]Supervision of [facility], 1522, other high risk Center [address], pregnancies, Drive, [place], second [address], [id number], trimester[place]aternal 120[place], [address]. [place] care for oth [place], tel: tel: abnormality KS, [phone] and damage, [address], unsp27 weeks US. gestation of tel:[phone] [phone] [facility] Suprvsn of preg w b- Sobbing Referring In Womens poor reprodctv or Reggie. Provider: Basilio HOLLIDAY obstet hx, second 8 700 Tanya PO Box [facility]Supervision of [facility], 1522, other high risk Center [address], pregnancies, Drive, [place], second [address], [id number], trimesterPreg 120[place], [address]. [place] care for patient [place], tel:+ tel:+[phone] w recurrent preg [place], 9772964 484257 loss, unsp [address], weeks [place]. gestation of tel: [phone] [facility] [place] Supervision of Sobbing Referring In Womens other high risk 2-201 Reggie. Provider: Basilio HOLLIDAY, pregnancies, 8 700 Tanya PO Box second Medical [facility], 1522, trimesterPreg Center [address], care for patient Kayce [place], w recurrent preg [address], [id number], loss, unsp 120[place], [address]. [place] [email or web address] weeks Freddie, tel:+ tel:+2 gestation of [place], [phone] [address], [place]. tel: [phone] [facility] Suprvsn of preg w Sobbing Referring In Womens Ultrasound poor reprodctv or 2-201 Reggie. Provider: Basilio HOLLIDAY, obstet hx, second 8 700 Tanya PO Box [facility]Supervision of [facility], 1522, other high risk Center [address], pregnancies, Drive, [place], second [address], [id number], trimesterPreg 120[place], [address]. [place] care for patient [place], tel:+ tel:+ w recurrent preg [place], [phone] 727286 loss, unsp [address], [id number] weeks [place]. gestation of tel: [phone] [facility] Suprvsn of preg w Sobbing Referring In Womens poor reprodctv or 8-201 Reggie. Provider: Basilio HOLLIDAY, obstet hx, second 7 700 Tanya PO Box [facility]Supervision of [facility], 1522, other high risk Center [address], pregnancies, Drive, [place], second [address], [id number], trimesterPreg 120[place], [address]. [place] care for patient Freddie, tel:+ tel:+3162 w recurrent preg [place], 0792855 998546 loss, unsp [address], [id number] weeks [place]. gestation of tel:+06-25 [phone] [facility] Suprvsn of preg w Mar-3 Sobbing Referring In Womens poor reprodctv or 0-201 Reggie. Provider: Basilio HOLLIDAY, obstet hx, first 7 700 Tanya PO Box triSupervision of [facility] G, 1522, other high risk Center [address], pregnancies, Drive, [place], [place], first [address], [id number], trimesterPreg 120, [place], [address]. [place] care for patient Freddie, tel:+ tel:+3162 w recurrent preg KS, 8100471 528466 loss, unsp [address], [id number] weeks [place]. gestation of tel:+06-25 [phone] [facility] Suprvsn of preg w Nov-0 Sobbing Referring In Womens poor reprodctv or 6 Reggie. Provider: Basilio HOLLIDAY, obstet history, 7 700 [place] PO Box unsp Medical [place] L, 1522, triSupervision of Center [address], other high risk Drive, Medical [place], pregnancies, Suite Center [id number], first 120, Drive [place] trimesterPreg [place]ier, [address], tel: care for patient [place], [place] [address], [place], [address]. loss, unsp [place]. tel: trimesterLess tel: [phone] than 8 weeks [phone] gestation of [facility] Encounter for Oct-1 Sobbing Referring In Womens test, [place]. Provider: Basilio HOLLIDAY, result unknown 7 700 Tanya PO Box [facility] G, 1522, Center [address], [place], [address], , 120, [place], [address]. [place], tel: tel:+316 [place], [phone] [phone] [address], [place]. tel: [phone] Umesh Frazier Encounter for Oct-1 Sobbing In Womens test, 0 [place]. Basilio HOLLIDAY, result unknown 7 700 [facility] 1522, [place], [place], Suite [id number], 120, [place], tel:+[phone] [place], [address], [place]. tel: [phone] Umesh Fraz[place] Encounter for Oct-0 Sobbing Referring In Womens test, [place]. Provider: Basilio HOLLIDAY, result unknown 7 700 Atnya PO Box Medical [place] G, 1522, Center [address], [address], [place], [address], [id number], [place], [address]. [place], tel: tel: DE, [phone], [place]. tel: [phone] [facility] Freddie Recurrent Jerardo-2 Garcia In Womens loss 9-201 Lois. Health MG, 7 700 PO Box Medical 1522, Center [address], , [place], 120, [id number], [place], [place], tel: [phone] , [place]. tel: [phone] [facility] Freddie Complete or unsp Feb-1 Garcia Referring In Womens spontaneous 3-201 Lois. Provider: Basilio HOLLIDAY, without 7 700 Tanya PO Box complicationCompl Medical [facility], 1522, ete or unsp Center [address], [facility] [place], without 120, [address], , [place], [address]. [place], tel: tel: [phone] , [place]. tel: [phone] [facility] Complete or unsp Feb-1 Garcia Referring In Womens Ultrasound spontaneous 3-201 Lois. Provider: Basilio HOLLIDAY, without 7 700 Tanya PO Box [id number] Medical [place] G, 1522, weeks gestation Center [address], of [place], 120, [address], [id number], [place], [address]. [place], tel: tel: [phone] , [place]. tel: [phone] [facility] Threatened Feb-0 Garcia Referring In Womens 7-201 Lois. Provider: Basilio HOLLIDAY, 7 700 Tanya PO Box Medical [place] G, 1522, Center [address] [place], [place], 120, [address], [id number], [place], [address]. [place], tel: tel: [phone] , [place]. tel: [phone] Umesh Frazier Irregular Jun- Garcia Referring In Womens MensesPersonal Lois. Provider: Basilio HOLLIDAY, history of comp 7 700 Tanya PO Box of preg, chldbrth Medical [place] G, 1522, and the puerp Center [address], [place], 120, [address], [id number], [place], [address]. [place], tel: tel: [phone] , [place]. 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 Provider: Basilio HOLLIDAY, (routine) w/o abn 6 700 Tanya PO Box findingsPap Smear [facility], 1522, Screening, Center [address], CervixPap Smear , [place], Screening, Cervix 120, [address], [id number], [place], [address]. [place], tel: tel: [phone] , [place]. tel: [phone] Umesh Frazier Darrian Referring In Womens Cassia. Provider: Basilio HOLLIDAY, 4 700 Gracy PO Box Medical [facility] 1522, Center S, [address], [facility], 120, [place] [id number], Freddie [facility] 120, [place] Freddie SOTO, tel:[phone] [place], , [place]. [id number]. tel: tel: [phone] Associates Freddie Supriya Referring In Womens 8 Gracy. Provider: Basilio HOLLIDAY, 4 700 Gracy PO Box Medical [facility], Center S, [address], [facility] [place], 120, Center [id number], Freddie [facility] 120, [place] Freddie SOTO, tel:[phone] [place], , [place]. [id number]. tel: tel: [phone] Associates Freddie Dec-0 Holdeman In Womens 6-201 Gracy. [facility], 2 700 [facility] 1522, [address], [facility] [place], 120, [id number], [place], [place], tel:[phone] , [place]. tel: [phone] Umesh Frazier Aug-0 Holdeman In Womens 8-201 Gracy. [facility], 1 700 PO [facility] 1522, [address], [place], 120, [id number], [place], tel:[phone] , [place]. tel: [phone] Family History Family Member Diagnosis Age At [...] party ID Authorization(s) [employer] Out [employer] [place] [id number] [employer] [place] [id number] [employer] [place] [id number] [employer] [place] [id number] [employer] [place] [id number] Social History Type Description Quantity Date Captured [...] Appointment Bhumika Ghotra BOOKED Appointment Bhumika Ghotra KSC R C/S BOOKED Future Order: Radiology Order Ultrasound OB Follow-up ([id number]) Ordered Future Order: Radiology Order Biophysical Profile without NST Ordered ([id number]) Future Order: Radiology Order Ultrasound OB, Transvaginal ([id number] ) Ordered Future Order: Radiology Order Complete OB Ultrasound > 14 Ordered Weeks ([id number]) Future Order: Radiology Order Ultrasound OB Follow-up ([id number]) Ordered Future Order: Lab Order Pap Smear With HPV Reflex If ASCUS Ordered ([id number]) Future Order: Radiology Order Biophysical Profile without NST Ordered ([id number]) Future Order: Radiology Order Biophysical Profile without NST Ordered ([id number]) Date Type Problem Goal Intervention Status Start [...]
--- OUTSIDE RECORDS SUMMARY | 2017-10-19 14:17 | External Medical Summary | Continuity of Care Document ---
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 Reference Range: Not Detected ANTICOAGULANT 15:52:00 note http://education.Concurrent Thinking/faq/ LupusAnticoag This interpretation is based on the following testresults. PTT LA SCREEN 38 s & 15:52:00 e l c t ; = 4 0 DRVVT MIX Not INTERPRETATION 15:52:00 Indic : ated DRVVT SCREEN 36 s & Test performed at [facility]/ [facility] [id number] [place] [id number]: 15:52:00 e l JULIA KAPOOR MD,PHD c t ; = 4 5 Panel Description: BETA 2 GLYCOPROTEIN I AB (IGG,IGA,IGM) B2 GLYCOPROTEIN I <9 SGU <=20 (IGG)AB 15:52:00 B2 GLYCOPROTEIN I 9 SMU <=20 (IGM)AB 15:52:00 B2 GLYCOPROTEIN I <9 KIRBY <=20 The Antiphospholipid (IGA)AB 15:52:00 Antibody Syndrome (APS) is aclinical-pathologic correlation that includes aclinical event (e.g. thrombosis, loss,thrombocytopenia) and persistent positiveAntiphospholipid Antibodies (IgM or IgG KOMAL >40MPL/GPL, IgM or IgG anti-B2GPI antibodies, or a LupusAnticoagulant). The IgA isotype has been implicatedin smaller studies, but have not yet been incorporatedinto the APS criteria. International consensusguidelines suggest waiting at least 12 weeks beforeretesting to confirm antibody persistence.Reference J Thromb Haemost 2006: 4; 295 For more information on this test, go tohttp://education.LensAR/faq/GPP699 Test performed at [facility]/[employer] [id number] [place] [id number]: JULIA KAPOOR MD,PHD Panel Description: CARDIOLIPIN AB (IGA,IGG,IGM) CARDIOLIPIN <11 APL < OR=11 Negative 12-20 Indeterminate AB (IGA) 15:52:00 21-80 Low to Medium Positive >80 High Positive For more information on this test, go to: http://education.Concurrent Thinking/faq/RNQ869 CARDIOLIPIN <14 GPL < OR=14 Negative 15-20 Indeterminate AB (IGG) 15:52:00 21-80 Low to Medium Positive >80 High Positive Greater than or equal to 40 GPL is a risk factorfor thrombosis and loss. For more information on this test, go to: http://education.Concurrent Thinking/faq/MHW757 CARDIOLIPIN <12 MPL Clinical Significance:The Antiphospholipid AB (IGM) 15:52:00 Antibody Syndrome (APS) is a clinicalpathologic correlation that includes a clinical event (e.g.thrombosis, loss, thrombocytopenia) and persistentpositive Antiphospholipid Antibodies (IgM or IgG KOMAL >40MPL/GPL, IgM or IgG anti-B2GP1 antibodies, or a LupusAnticoagulant). The IgA isotype has been implicated insmaller studies, but have not yet been incorporated into theAPS criteria. International consensus guidelines suggestwaiting at least 12 weeks before retesting to confirmantibody persistence. Reference J Thromb Haemost 2006: 4;295. < OR=12 Negative 13-20 Indeterminate 21-80 Low to Medium Positive >80 High Positive Greater than or equal to 40 MPL is a risk factorfor thrombosis and loss. For more information on this test, go to: http://education.Concurrent Thinking/faq/CTS418 REPORT COMMENT:FASTING:NOTest performed at [facility] [id number] [facility] [facility] [address]Qztoddjj: LÓPEZ BUTT MD PHD Advance Directives Directive Yes / No Effective Date File Name Unknown Encounters Encounter Practice Location Reason(s) Diagnoses Date Provider Care Team Description For Visit Members Umesh Frazier Recurrent Garcia In Womens loss 9-201 [facility], 7 700 [facility] 1522, [address] [place] [address], [place], 120, [id number], [place], [place], tel:[phone] , [place]. tel: [phone] Umesh Frazier Complete or unsp Jun- Garcia Referring In Womens spontaneous 3-201 Lois. Provider: Basilio HOLLIDAY, without 7 700 Tanya PO Box complicationCompl [facility], 1522, ete or unsp Center [address], spontaneous [place], without 120, [place], [id number], [place], [address]. [place], tel:+ tel: [phone] , [place]. tel: [phone] Umesh Frazier Complete or unsp Jun- Garcia Referring In Womens Ultrasound spontaneous 3-201 Lios. Provider: Basilio HOLLIDAY, without 7 700 Tanya PO Box [id number] [facility] , 1522, weeks gestation Center [address], of [place], [place], 120, [place], , [place], [address]. [place], tel: tel:[phone] , [place]. tel: [phone] Umesh Frazier Threatened Feb-0 Garcia Referring In Womens 7-201 Lois. Provider: Basilio HOLLIDAY, 7 700 Tanya PO Box [facility] , 1522, Center [address] [place], [place], 120, [place], [id number], [place], [address]. [place], tel:+ tel: [phone] , [place]. tel: [phone] Umesh Frazier Irregular Feb-0 Garcia Referring In Womens MensesPersonal 3-201 Lois. Provider: Basilio HOLLIDAY, history of comp 7 700 Tanya PO Box of preg, chldbrth [facility] , 1522, and the puerp Center [address] [place], [place], 120, [place], [id number], [place], [address]. [place], tel:+ tel: [phone] , [place]. 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 Provider: Health MG, (routine) w/o abn 6 700 Tanya PO Box findingsPap Smear Medical [place] G, 1522, Screening, Center [address], CervixPap Smear , [facility], [place], Screening, Cervix 120, [place], [id number], [place], [address]. [place], tel:+ tel: [phone] , [place]. tel: [phone] Umesh Frazier Dec- Darrian Referring In Womens 7-201 Cassia. Provider: Basilio HOLLIDAY, 4 700 Gracy PO Box Medical [place] 1522, Center S, [address], [facility] [place], 120, [place] [id number], [place], [facility] 120, [place], [place], tel:[phone] [place], , [place]. [id number]. tel: tel: [phone] Umesh Frazier Nov- Supriya Referring In Womens 8-201 Gracy. Provider: Basilio HOLLIDAY, 4 700 Gracy PO Box Medical [place] 1522, Center S, [address], [facility] [place], 120, [place] [id number], [place] [facility] 120, CHAR[place], Freddie, tel:[phone] [place], , [place]. [id number]. tel: tel: [phone] Umesh Frazier Dec-0 Supriya In Womens 6-201 Gracy. Health MG, 2 700 PO Box Medical [address], [address], [facility] [place], 120, [id number], [place], [place], tel:[phone] , [place]. tel: [phone] Umesh Frazier Dec-0 Supriya In Womens 8-201 Gracy. Health MG, 1 700 PO Box Medical [address], [address], [facility] [place], 120, [id number], [place], [place], tel:[phone] , [place]. tel: [phone] Family History Family Member Diagnosis Age At Onset Paternal Grandmother Cancer, breast Maternal Grandmother Cancer, breast Immunizations Vaccine Date Status Comments Influenza, injectable, completed Source: New Immunization Record quadrivalent, preservative free, 3 yrs or older Tdap completed Source: New Immunization Record Payers Payer name Insurance type Covered alliance party ID Authorization(s) BCBS Out Of [place] [id number] BC[employer] Out Of [place] [id number] BCBS Out Of [place] [id number] Social History Type Description Quantity Date Captured Alcohol Use Details Unknown Caffeine Use Details Unknown Tobacco Use Status Unknown Smoking Status Unknown Vital Signs Date / Height Weight BMI Pulse Blood Temperature Respiratory Body Head BMI Time: Rate Pressure Rate Surface Circumference percentile Area Unknown Chief Complaint And Reason For Visit Unknown Chief Complaint And Reason For Visit Reason For Referral Reason For Referral Unknown Plan Of Care Date Type Action Status Future Order: Radiology Order Ultrasound OB, Transvaginal ([id number] ) Ordered Future Order: Lab Order Pap [...]
--- OUTSIDE RECORDS SUMMARY | 2017-10-19 14:17 | External Medical Summary | Continuity of Care Document ---
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 Panel Description: Hemoglobin [Mass/volume] in Blood Hemoglobin 11:04:00 12.5 g/dL 11.1-15.9 Panel Description: Hematocrit [Volume Fraction] of Blood by Automated count Hematocrit 11:04:00 38.4 % 34.0-46.6 Advance Directives Directive Yes / No Effective Date File Name Unknown Encounters Encounter Practice Location Reason(s) Diagnoses Date Provider Care Team Description For Visit Members Umesh Devi of preg w Aug- Sobbing Referring In Womens poor reprodctv or 2-201 Reggie. Provider: Health PA, obstet hx, third 8 700 Tanya PO Box triSupervision of Medical [place], 1522, other high risk Center [address], [address], [address], [place], [place], third [address], [id number], trimesterLow 120[place], [address]. [place] weight gain in [place], tel:+ tel:+ , third [place], [phone] trimesterPreg [address], care for patient [place]. w recurrent preg tel: loss, unsp [phone] trimester Associates [place] Supervision of Apr-1 Sobbing Referring In Womens Ultrasound other high risk 2-201 [place]. Provider: Health PA, pregnancies, 8 700 Tanya PO Box third [facility], 1522, trimesterMaternal Center [address], care for oth [address], [place], [place], abnormality [address], [id number], and damage, 120[place], [address]. [place] unspMatern care [place], tel: tel: for oth or susp [place], [phone] poor fetl grth, [address], third tri, unsp30 [place]. weeks gestation tel: of [phone] [facility] [place] Suprvsn of preg w Apr-0 Sobbing Referring In Womens poor reprodctv or 6-201 [place]. Provider: Basilio HOLLIDAY, obstet hx, third 8 700 Tanya PO Box triSupervision of [facility], 1522, other high risk Center [address], [address], [place], [place], third [address], [id number], [place] 120[place], [address]. [place] weight gain in [place], tel:+ tel:+ , third [place], [phone] [email or web address] weeks [address]35[address], gestation of [place]. tel: [phone] [facility] Suprvsn of preg w Mar-2 Sobbing Referring In Womens poor reprodctv or 2-201 [place]. Provider: Basilio HOLLIDAY, obstet hx, second 8 700 Tanya PO Box triSupervision of [facility], 1522, other high risk Center [address], [address], [address], [place], second [address], [id number], [email or web address] weeks 120, [place], [address]. [place] gestation of [place], tel:+ tel: [place], [phone] [phone], [place]. tel: [phone] Umesh [place] Suprvsn of preg w Sobbing Referring In Womens Ultrasound poor reprodctv or [place]. Provider: Basilio HOLLIDAY, obstet hx, second 8 700 Tanya PO Box triSupervision of [facility], 1522, other high risk Center [address], [address], [address], [place], second [address], [id number], trimester[place]aternal 120[place], [address]. [place] care for oth [place], tel: tel: abnormality [place], [phone] and damage, [address], unsp27 weeks [place]. gestation of tel: [phone] Umesh [place] Suprvsn of preg w Sobbing Referring In Womens poor reprodctv or [place]. Provider: Basilio HOLLIDAY, obstet hx, second 8 700 Tanya PO Box triSupervision of [facility], 1522, other high risk Center [address], [place], second [address], [id number], trimesterPreg 120[place], [address]. [place] care for patient [place], tel: tel: w recurrent preg KS, [phone] loss, unsp [address], [id number] weeks [place]. gestation of tel: [phone] Umesh [place] Supervision of Sobbing Referring In Womens other high risk [place]. Provider: Basilio HOLLIDAY, pregnancies, 8 700 Tanya PO Box second Medical [place] G, 1522, trimesterPreg Center [address], care for patient Drive, [place], w recurrent preg [address], [id number], loss, unsp 120[place], [address]. [place] [email or web address] weeks Freddie, tel:+ tel: gestation of [place], [phone] [address], [place]. tel: [phone] Umesh [place] Suprvsn of preg w Jann-2 Sobbing Referring In Womens Ultrasound poor reprodctv or 2-201 Reggie. Provider: Basilio HOLLIDAY, horacioet hx, second 8 700 Tanya PO Box triSupervision of [facility] G, 1522, other high risk Center [address], [address], [address], [place], second [address], [id number], trimesterPreg 120[place], [address]. [place] care for patient [place], tel:+ tel:[phone] w recurrent preg [place], [phone] loss, unsp [address], [email or web address] weeks [place]. gestation of tel:[phone] [facility] [place] Suprvsn of preg w Apr-2 Sobbing Referring In Womens poor reprodctv or 8-201 Reggie. Provider: Basilio HOLLIDAY, horacioet hx, second 7 700 Tanya PO Box triSupervision of [facility] G, 1522, other high risk Center [address], pregnancies, [address], [place], second [address], [id number], trimesterPreg 120[place], [address]. [place] care for patient [place], tel:+ tel:[phone] w recurrent preg [place], [phone] 681120 loss, unsp [address], [email or web address] weeks [place]. gestation of tel:[phone] [facility] [place] Suprvsn of preg w Nov-3 Sobbing Referring In Womens poor reprodctv or 0-201 Reggie. Provider: Basilio HOLLIDAY, horacioet hx, first 7 700 Tanya PO Box triSupervision of [facility] G, 1522, other high risk Center [address], pregnancies, [address], [place], first [address], [id number], trimesterPreg 120[place], [address]. [place] care for patient [place], tel:+ tel:[phone] w recurrent preg KS, [phone] loss, unsp [address], [email or web address] weeks [place]. gestation of tel:[phone] [facility] [place] Suprvsn of preg w Nov-0 Sobbing Referring In Womens poor reprodctv or 6-201 Reggie. Provider: Basilio HOLLIDAY, horacoiet history, 7 700 [place] PO Box unsp Medical [place] L, 1522, triSupervision of Center [address], other high risk Drive, Medical [place], pregnancies, Suite Center [id number], first 120, Drive [place] trimesterPreg Freddie, [address], tel:+ care for patient [place]LES [place], [place] [address], [place], [address]. loss, unsp [place]. tel: trimesterLess tel: [phone] than 8 weeks [phone] gestation of Associates [facility] Encounter for Oct-1 Sobbing Referring In Womens test, 1 [place]. Provider: Basilio HOLLIDAY, result unknown 7 700 [facility], 1522, Center [address] [facility], [place], [place], [address], , 120, [place], [address]. [place], tel: tel: NM, [phone] [address], [place]. tel: [phone] Umesh [place] Encounter for Oct-1 Sobbing In Womens test, 0- [place]. Basilio HOLLIDAY, result unknown 7 700 [facility] 1522, [facility], [place], [address] [id number], 120, [place], [address], [place]. tel: [phone] Umesh [place] Encounter for Oct-0 Sobbing Referring In Womens test, [place]. Provider: Basilio HOLLIDAY, result unknown 7 700 [facility], 1522, Center [address] [facility], [place], [place], [address], , 120, [place], [address]. [place] Freddie, tel: tel: NM, [phone] [address], [place]. tel: [phone] Umesh [place] Recurrent Jerardo-2 Garcia In Womens loss 9 Lois. Basilio HOLLIDAY, 7 700 [facility] 1522, [facility], Dr, [place], 120, [id number], [place], [place], tel:+ [phone] , [place]. tel: [phone] Umesh [place] Complete or unsp Feb-1 Garcia Referring In Womens spontaneous 3-201 Lois. Provider: Basilio HOLLIDAY, without 7 700 Tanya PO Box complicationCompl [facility], 1522, ete or unsp Center [address], spontaneous [place], without 120, [address], [id number], [place], [address]. [place], tel:+ tel: [phone] , [place]. tel: [phone] Umesh [place] Complete or unsp Fe- Garcia Referring In Womens Ultrasound spontaneous - Lois. Provider: Basilio HOLLIDAY, without 7 700 Tanya PO Box [email or web address] [facility], 1522, weeks gestation Center [address], of [place], CHARLES, [address], Council, , [place], [address]. [place], tel: tel:[phone] , [place]. tel: [phone] Umesh [place] Threatened Feb-0 Garcia Referring In Womens 7- Lois. Provider: Basilio HOLLIDAY, 7 700 Tanya PO Box [facility], 1522, Center [address] [place], [place], 120, Council, , [place], [address]. [place], tel:+ tel: [phone] , [place]. tel: [phone] Umesh [place] Irregular Feb-0 Garcia Referring In Womens MensesPersonal 3-201 Lois. Provider: Basilio HOLLIDAY, history of comp 7 700 Tanya PO Box of preg, chldbrth [facility] G, 1522, and the puerp Center [address] [place], [place], 120, [address], , [place], [address]. [place], tel:+ tel:+ [phone] , [place]. tel: [phone] Umesh [place] Encntr for community placement worker Feb- Sagastume Referring In Womens exam (general) 1- Carrie. Provider: Health MG, (routine) w/o abn 6 700 Tanya PO Box findingsPap Smear Medical [place] [facility], 1522, Screening, Center [address], CervixPap Smear , [facility], [place], Screening, Cervix [address], Council, [id number], [place], [address]. [place], tel: tel: [phone] , [place]. tel: [phone] Umesh [place] Dec- Darrian Referring In Womens 7- Cassia. Provider: Basilio HOLLIDAY, 4 700 Gracy PO Box Medical [place] 1522, Center S, [address], [facility] [place], 120, [place] [id number], Freddie, [facility] 120, [place], [place], tel: [phone] [place], , [place]. [id number]. tel: tel: [phone] Umesh [place] Mar- Supriya Referring In Womens 8- Gracy. Provider: Basilio HOLLIDAY, 4 700 [place] PO Box Medical [place] 1522, Center S, [address], [facility] [place], 120, [place] [id number], [place] [facility] 120, [place], [place], tel:[phone] [place], , [place]. [id number]. tel: tel: [phone] Umesh [place] 0 Supriya In Womens 6- Gracy. Health MG, 2 700 PO Box Medical [address], [place] [address], [facility] [place], 120, [id number], [place], [place], tel: [phone] , [place]. tel: [phone] Umesh [place] Dec- Supriya In Womens 8- Gracy. Basilio HOLLIDAY, 1 700 PO Box Medical [address], [place] [address], [facility] [place], 120, [id number], [place], [place], tel:[phone] , [place]. tel: [phone] Family History Family Member Diagnosis Age At [...] libertarian ID Authorization(s) BCBS Out Of [place] BL [id number] BCBS Out [place] BL [id number] BCBS Out [place] BL [id number] BCBS [place] BL [id number] BCBS Out [place] BL [id number] Social History Type Description Quantity Date Captured Alcohol Use Details No Caffeine Use Details Unknown Tobacco Use Status Unknown Smoking Status Never smoker Vital Signs Date / Height Weight BMI Pulse Blood Temperature Respiratory Body Head BMI Time: Rate Pressure Rate Surface Circumference percentile Area 137.70 22.9 118/76 -2018 lbs 1 mm[Hg] 2:14 kg/m PM eter (2) 137.70 22.9 -2018 lbs 1 1:40 kg/m PM eter (2) .7 -2018 5 1:35 kg/m PM eter (2) Chief Complaint And Reason For Visit Unknown Chief Complaint And Reason For Visit Reason For Referral Reason For Referral Unknown Plan Of Care Date Type Action Status Appointment Bhumika Ghotra BOOKED Appointment Bhumika Ghotra BOOKED Appointment Bhumiak Ghotra BOOKED Appointment Bhumika Ghotra BOOKED Appointment Bhumika Ghotra BOOKED Appointment Bhumika Ghotra BOOKED Appointment Bhumika Ghotra BOOKED Appointment Bhumika Ghotra BOOKED Appointment Bhumika Ghotra BOOKED Appointment Bhumika Ghotra BOOKED Appointment Bhumika Ghotra BOOKED Appointment Bhumika Ghotra [facility] R C/S BOOKED Future Order: Radiology Order Ultrasound OB, Transvaginal ([id number] ) Ordered Future Order: Radiology Order Complete OB Ultrasound > 14 Ordered Weeks ([id number]) Future Order: Radiology Order Ultrasound OB Follow-up ([id number]) Ordered Future Order: Lab Order Pap Smear With HPV Reflex If ASCUS Ordered ([id number]) Future Order: Radiology Order Ultrasound OB Follow-up ([id number]) Ordered Future Order: Radiology Order Biophysical Profile without NST Ordered ([id number]) Date Type Problem Goal Intervention Status Start [...]
--- OUTSIDE RECORDS SUMMARY | 2017-10-19 14:17 | External Medical Summary | Continuity of Care Document ---
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 Provider: Health PA, result [facility], Center [address] [place], [place], [address], , 120, [place], [address]. [place], tel:+ tel: [place], [phone], [place]. tel: [phone] Umesh [place] Encounter for Oct-1 Sobbing In Womens test, 0-201 Reggie. Health MG, result unknown 7 700 [facility] Medical 1522, [facility], [place], [address] [id number], 120, [place], tel: [place], [phone], [place]. tel: [phone] Umesh [place] Encounter for Oct-0 Sobbing Referring In Womens test, 9-201 Reggie. Provider: Basilio HOLLIDAY, result unknown 7 700 [facility], Center [address], [place], [address], , 120, [place], [address]. [place], tel: tel: TN, [phone] [address], [place]. tel: [phone] Umesh [place] Recurrent Jerardo-2 Garcia In Womens loss 9-201 Lois. Basilio HOLLIDAY, 7 700 [facility] Medical 1522, [facility], [place], 120, [id number], [place], [place], tel: [phone] , [place]. tel: [phone] Associates [place] Complete or unsp Feb-1 Garcia Referring In Womens spontaneous 3-201 Lois. Provider: Health MG, without 7 700 Tanya PO Box complicationCompl [facility], 1522, ete or unsp Center [address], [address] [place], [place], [place], without 120, [place], , [place], [address]. [place], tel:+ tel: [phone] , [place]. tel: [phone] [facility] Complete or unsp Feb-1 Garcia Referring In Womens Ultrasound spontaneous - Lois. Provider: Basilio HOLLIDAY, without 7 700 Tanya PO Box [email or web address] [facility] G, 1522, weeks gestation Center [address], of [place], 120, [place], , [place], [address]. [place], tel:+ tel: [phone] , [place]. tel: [phone] Umesh [place] Threatened Feb-0 Garcia Referring In Womens 7- Lois. Provider: Basilio HOLLIDAY, 7 700 Tanya PO Box [facility] , 1522, Center [address] [place], [place], 120, [place], , [place], [address]. [place], tel: tel:[phone] , [place]. tel: [phone] Umesh [place] Irregular Feb-0 Garcia Referring In Womens MensesPersonal - Lois. Provider: Basilio HOLLIDAY, history of comp 7 700 Tanya PO Box of preg, chldbrth [facility] G, 1522, and the puerp Center [address] [place], [place], 120, [place], , [place], [address]. [place], tel: tel:[phone] , [place]. tel: [phone] Umesh [place] Encntr for clinical psychologist licensed Sagastume Referring In Womens exam (general) Carrie. Provider: Basilio HOLLIDAY, (routine) w/o abn 6 700 Tanya PO Box findingsPap Smear [facility] G, 1522, Screening, Center [address], CervixPap Smear [place], Screening, Cervix [address], [place], , [place], [address]. [place], tel:+ tel:[phone] , [place]. tel: [phone] Umesh [place] Apr- Darrian Referring In Womens 7-201 Cassia. Provider: Health MG, 4 700 Gracy PO Box Medical [place] 1522, Center S, [address], [facility] [place], 120, [place] [id number], [place], [facility] 120, [place], [place], tel:[phone] [place], , [place]. [id number]. tel: tel: [phone] Umesh [place] Referring In Womens 8-201 Gracy. Provider: Health MG, 4 700 Gracy PO Box Medical [place] 1522, Center S, [address], [facility] [place], 120, [place] [id number], [place], [facility] 120, [place], [place], tel:[phone] [place], , [place]. [id number]. tel: tel: [phone] Umesh [place] Apr- Holdeman In Womens 6-201 Gracy. Health MG, 2 700 Box [address], [place] [address], [facility] [place], 120, [id number], [place], [place], tel: [phone] , [place]. tel: [phone] Umesh [place] Dec- Holdeman In Womens 8-201 Gracy. Health PA, 1 700 Box Medical [address], [address], [facility] [place], 120, [id number], [place], [place], tel:[phone] , [place]. tel: [phone] Family History Family Member Diagnosis Age At Onset Paternal Grandmother Cancer, breast Maternal Grandmother Cancer, breast Immunizations Vaccine Date Status Comments Influenza, injectable, completed Source: New Immunization Record quadrivalent, preservative free, 3 yrs or older Tdap completed Source: New Immunization Record Payers Payer name Insurance type Covered libertarian ID Authorization(s) BCBS Out Of [place] [id number] BCBS Out [place] [id number] BCBS Out Of [place] [id number] Social History Type Description Quantity Date Captured [...] Future Order: Radiology Order Ultrasound OB, Transvaginal ([id number] ) Ordered Date Type Problem Goal Intervention [...]
--- OUTSIDE RECORDS SUMMARY | 2017-10-19 14:18 | External Medical Summary | Continuity of Care Document ---
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 Provider: Basilio HOLLIDAY, obstet hx, third 8 700 Tanya PO Box triSupervision of Medical [place], 1522, other high risk Center [address], pregnancies, [address], [place], [place], third [address], [id number], trimesterPreg 120, [place], [address]. [place] care for patient Freddie, tel:+ tel:+316 w recurrent preg [place], [phone] loss, unsp [address], trimesterMatern [place]. care for oth or tel:+06-25 susp poor fetl [phone] grth, third tri, unsp Associates Freddie Supervision of Apr-2 Sobbing Referring In Womens Ultrasound other high risk [place]. Provider: Basilio HOLLIDAY, pregnancies, 8 700 Tanya PO Box third Medical [place], 1522, trimesterMaternal Center [address], care for oth Drive, [place], abnormality [address], [id number], and damage, 120[place], [address]. [place] unspMatern care Freddie, tel:+ tel:+ for oth or susp [place], [phone] poor fetl grth, [address], third tri, unsp32 [place]. weeks gestation tel:+06-25 of [phone] Umesh Frazier Suprvsn of preg w Apr-1 Sobbing Referring In Womens poor reprodctv or - [place]. Provider: Basilio HOLLIDAY, obstet hx, third 8 700 Tanya PO Box triSupervision of Medical [place], 1522, other high risk Center [address], pregnancies, [address], [place], third [address], [id number], [place] 120[place], [address]. [place] weight gain in Freddie, tel:+ tel:+[phone] , third [place], [phone] [id number] weeks 02505, gestation of [place]. tel:+[phone] Umesh Frazier Supervision of Apr-1 Sobbing Referring In Womens Ultrasound other high risk [place]. Provider: Basilio HOLLIDAY, pregnancies, 8 700 Tanya PO Box third Medical [place], 1522, trimesterMaternal Center [address], care for o[address], [place], abnormality [address], [id number], and damage, 120[place], [address]. [place] unspMatern care [place], tel:+ tel: for oth or susp KS, [phone] poor fetl grth, [address], third tri, unsp31 US. weeks gestation tel:+06-25 of [phone] Umesh Frazier Suprvsn of preg w Apr-1 Sobbing Referring In Womens poor reprodctv or 2-201 [place]. Provider: Basilio HOLLIDAY, obstet hx, third 8 700 Tanya PO Box triSupervision of Medical [place], 1522, other high risk Center [address], pregnancies, [address], [place], third [address], [id number], [place] 120[place], [address]. [place] weight gain in Freddie, tel: tel: , third [place], [phone] trimesterPreg [address], care for patient [place]. w recurrent preg tel:+06-25 loss, unsp [phone] trimester Associates Freddie Supervision of Apr-1 Sobbing Referring In Womens Ultrasound other high risk 2-201 [place]. Provider: Basilio HOLLIDAY, pregnancies, 8 700 Tanya PO Box third Medical [place] G, 1522, trimesterMaternal Center [address], care for oth Drive, [place], abnormality [address], [id number], and damage, 120[place], [address]. [place] unspMatern care Freddei, tel: tel: for oth or susp KS, [phone] poor fetl grth, [address], third tri, unsp30 US. weeks gestation tel:+06-25 of [phone] Umesh Frazier Suprvsn of preg w Apr-0 Sobbing Referring In Womens poor reprodctv or 6-201 [place]. Provider: Basilio HOLLIDAY, obstet hx, third 8 700 Tanya PO Box triSupervision of Medical [place], 1522, other high risk Center [address], pregnancies, Drive, [place], third [address], [id number], [place] 120[place], [address]. [place] weight gain in Freddie, tel: tel: , third [place], [phone] [id number] weeks 20296, gestation of [place]. tel: [phone] Associates Freddie Suprvsn of preg w Jul- Sobbing Referring In Womens poor reprodctv or [place]gie. Provider: Basilio HOLLIDAY, obstet hx, second 8 700 Tanya PO Box triSupervision of [facility], 1522, other high risk Center [address], pregnancies, [address], [place], second [address], [id number], [id number] weeks 120, [place], [address]. [place] gestation of Freddie, tel: tel: KS, [phone] [address], [place]. tel: [phone] Associates Freddie Suprvsn of preg w Jul- Sobbing Referring In Womens Ultrasound poor reprodctv or Reggie. Provider: Basilio HOLLIDAY, obstet hx, second 8 700 Tanya PO Box triSupervision of [facility], 1522, other high risk Center [address], pregnancies, Drive, [place], second [address], [id number], trimester[place] 120[place], [address]. [place] care for oth Freddie, tel: tel: abnormality KS, [phone] 112955 and damage, [address], unsp27 weeks [place]. gestation of tel: [phone] Associates Freddie Suprvsn of preg w Jun- Sobbing Referring In Womens poor reprodctv or [place]. Provider: Basilio HOLLIDAY obstet hx, second 8 700 Tanya PO Box triSupervision of [facility] G, 1522, other high risk Center [address], pregnancies, [address], [place], second [address], [id number], trimesterPreg 120[place], [address]. [place] care for patient Freddie, tel: tel: w recurrent preg KS, [phone] 161932 loss, unsp [address], [id number] weeks US. gestation of tel:[phone] Associates Freddie Supervision of Sobbing Referring In Womens other high risk 2- [place]. Provider: Basilio HOLLIDAY, pregnancies, 8 700 Tanya PO Box second Medical [facility], 1522, trimesterPreg Center [address], care for patient Kayce Giordano, CHARLES, w recurrent preg [address], [id number], loss, unsp 120[place], [address]. [place] [id number] weeks Freddie, tel:+ tel:+2 gestation of [place], [phone] [address], [place]. tel: [phone] Associates Freddie Suprvsn of preg w Sobbing Referring In Womens Ultrasound poor reprodctv or 2 Reggie. Provider: Basilio HOLLIDAY, horacioet hx, second 8 700 Tanya PO Box triSupervision of [facility], 1522, other high risk Center [address], pregnancies, Pasquale, [place], second [address], [id number], trimesterPreg 120[place], [address]. [place] care for patient Freddie, tel:+ tel:+316 w recurrent preg KS, 5600963 938835 loss, unsp [address], [id number] weeks US. gestation of tel: [phone] Associates Freddie Suprvsn of preg w Sobbing Referring In Womens poor reprodctv or 8-201 [place]. Provider: horacio Penaet hx, second 7 700 Tanya PO Box triSupervision of [facility], 1522, other high risk Center [address], pregnancies, [place], [place], second [address], [id number], trimesterPreg 120, [place], [address]. [place] care for patient Freddie, tel:+ tel:+3162 w recurrent preg KS, [phone] 010112 loss, unsp 54[address], [id number] weeks US. gestation of tel:+06-25 [phone] Associates Freddie Suprvsn of preg w Nov-3 Sobbing Referring In Womens poor reprodctv or 0-201 [place]. Provider: Basilio HOLLIDAY, obstet hx, first 7 700 Tanya PO Box triSupervision of [facility] G, 1522, other high risk Center [address], pregnancies, Drive, [place], [place], first [address], [id number], trimesterPreg 120[place], [address]. [place] care for patient Freddie, tel: tel:2 w recurrent preg KS, [phone] 447845 loss, unsp 468[address], weeks [place]. gestation of tel: [phone] Associates Freddie Suprvsn of preg w Nov-0 Sobbing Referring In Womens poor reprodctv or 6-201 [place]. Provider: Basilio HOLLIDAY, obstet history, 7 700 [facility] Box unsp Medical Sob[place] L, 1522, triSupervision of Center [address], other high risk Drive, Medical [place], pregnancies, Suite Center [id number], first 120, Drive [place] trimesterPreg Freddie, [address], tel: care for patient Freddie SOTO, [place] [address], [place], [address]. loss, unsp [place]. tel: trimesterLess tel: [phone] than 8 weeks [phone] gestation of Associates Freddie Encounter for Oct-1 Sobbing Referring In Womens test, 1 [place]. Provider: Basilio HOLLIDAY, result unknown 7 700 [facility], Center [address] [place], [place], [address], [id number], 120[place], [address]. [place] Freddie, tel: tel: PA, [phone] [address], [place]. tel: [phone] Umesh Frazier Encounter for Oct-1 Sobbing In Womens test, 0-201 [place]. Basilio HOLLIDAY, result unknown 7 700 [facility] 1522, [place], [place], Suite [id number], 120, [place] Freddie, tel: PA, 562394 [address], [place]. tel: [phone] Umesh Frazier Encounter for Oct-0 Sobbing Referring In Womens test, 9-201 [place]. Provider: Basilio HOLLIDAY, result unknown 7 700 [facility], Center [address] [facility], CHARLES, [address], [id number], 120[place], [address]. [place], tel: tel: PA, [phone] [address], [place]. tel: [phone] Associates Freddie Recurrent Jerardo-2 Garcia In Womens loss 9-201 Lois. Health MG, 7 700 PO Box Medical [address], Center Dr Nan, Laith SOTO, 120, [id number], [place], [place], tel: [phone] , [place]. tel: [phone] Associates Freddie Complete or unsp Feb-1 Garcia Referring In Womens spontaneous 3-201 [place]is. Provider: Health MG, without 7 700 Tanya PO Box complicationCompl [facility], 1522, ete or unsp Center [address], spontaneous Laith Santiago [place], without 120, [place], [id number], [place], [address]. [place], tel: tel:[phone] , [place]. tel: [phone] Associates Freddie Complete or unsp Feb-1 Garcia Referring In Womens Ultrasound spontaneous 3-201 [place]. Provider: Basilio HOLLIDAY, without 7 700 Tanya PO Box [email or web address] [facility], 1522, weeks gestation Center [address], of [place]ith [place], 120, [address], [id number], [place], [address]. [place], tel: tel: [phone] , [place]. tel: [phone] Associates Freddie Threatened Feb-0 Garcia Referring In Womens 7-201 [place]. Provider: Basilio HOLLIDAY, 7 700 Tanya PO Box Medical [facility], 1522, Center [address] [place], 120, [place], [id number], [place], [address]. [place], tel: tel:[phone] , [place]. tel: [phone] Umesh Frazier Irregular Jun- Garcia Referring In Womens MensesPersonal 3- [place]. Provider: Basilio HOLLIDAY, history of comp 7 700 Tanya PO Box of preg, chldbrth [facility] G, 1522, and the puerp Center [address], Laith Devries [place], 120, [place], [id number], [place], [address]. [place], tel: tel: [phone] [phone] , [place]. 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 Provider: Basilio HOLLIDAY, (routine) w/o abn 6 700 Tanya PO Box findingsPap Smear [facility], 1522, Screening, Center [address], CervixPap Smear , Laith Devries [place], Screening, Cervix 120, [place], [id number], [place], [address]. [place], tel: tel: [phone] , [place]. tel: [phone] Umesh Frazier Darrian Referring In Womens 7- [place]. Provider: Basilio HOLLIDAY, 4 700 Gracy PO Box Medical [facility], Center S, [address], [facility], 120, Center [id number], Freddie [facility] 120, [place] Freddie SOTO, tel: [phone] [place], , [place]. [id number]. tel: tel: [phone] Umesh Frazier Supriya Referring In Womens 8-201 [place]. Provider: Basilio HOLLIDAY, 4 700 Gracy PO Box Medical [place] 1522, Center S, [address] Dr [address], [facility], 120, Center [id number], Freddie [facility] 120, [place] Freddie SOTO, tel: [phone] [place], , [place]. [id number]. tel: tel: [phone] Umesh Frazier Holdeman In Womens 6-201 [place]. Health [place], 2 700 PO Box Medical [address], [place] [address], [facility] [place], 120, [id number], [facility] [place], tel:[phone] 771121 , [place]. tel: [phone] Umesh Frazier Dec- Holdeman In Womens 8-201 Gracy. [facility], 1 700 PO Box Medical [address], [place] [address] Nan, [facility] [place], 120, [id number], [facility] [place], tel:+[phone] 275127 , [place]. tel: [phone] Family History Family Member Diagnosis Age At [...] party ID Authorization(s) BCBS Out Of [place] [id number] [employer] Out [place] BL [id number] [place] Out [place] BL [id number] BC[employer] Out [place] BL [id number] BCBS Out [place] BL [id number] Social History Type Description Quantity Date Captured Alcohol Use Details No Caffeine Use Details Unknown Tobacco Use Status Unknown Smoking Status Never smoker Vital Signs Date / Height Weight BMI Pulse Blood Temperature Respiratory Body Head BMI Time: Rate Pressure Rate Surface Circumference percentile Area 139.50 23.2 134/78 -2018 lbs 1 mm[Hg] 2:04 kg/m PM eter (2) 139.50 23.2 -2018 lbs 1 1:44 kg/m PM eter (2) Chief Complaint And [...] Appointment Bhumika Ghotra BOOKED Appointment Bhumika Ghotra [facility] [place] Future Order: Radiology Order Ultrasound OB, Transvaginal ([id number] ) Ordered Future Order: Radiology Order Complete OB Ultrasound > 14 Ordered Weeks ([id number]) Future Order: Radiology Order Ultrasound OB Follow-up ([id number]) Ordered Future Order: Lab Order Pap Smear With HPV Reflex If ASCUS Ordered ([id number]) Future Order: Radiology Order Biophysical Profile without NST Ordered ([id number]) Future Order: Radiology Order Ultrasound OB Follow-up ([id number]) Ordered Future Order: Radiology Order Biophysical Profile without NST Ordered ([id number]) Future Order: Radiology Order Biophysical Profile without NST Ordered ([id number]) Date Type Problem Goal Intervention Status Start [...]
--- OUTSIDE RECORDS SUMMARY | 2017-10-19 14:18 | External Medical Summary | Continuity of Care Document ---
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 Provider: Basilio HOLLIDAY, pregnancies, 8 700 Tanya PO Box second Medical [facility], 1522, trimesterPreg Center [address], care [place], w recurrent preg [address], [id number], loss, unsp 120[place], [address]. [place] weeks Freddie, tel: tel:2 gestation of [place], [phone] [address], [place]. tel: [phone] Umesh Frazier Suprvsn of preg w Sobbing Referring In Womens Ultrasound poor reprodctv or [place]. Provider: Basilio HOLLIDAY, horacioet hx, second 8 700 Tanya PO Box triSupervision of [facility] G, 1522, other high risk Center [address], pregnancies, Drive, [place], [place], second [address] [place], [id number], trimesterPreg 120[place], [address]. [place] care for patient Freddie, tel:+ tel:+316 w recurrent preg KS, [id number] 152240 loss, unsp [address], [id number] weeks [place]. gestation of tel:+06-25 [phone] Associates Freddie Suprvsn of preg w Dec-2 Sobbing Referring In Womens poor reprodctv or 8-201 [place]. Provider: Basilio HOLLIDAY, obstet hx, second 7 700 [facility] PO Box triSupervision of [facility] G, 1522, other high risk Center [address], pregnancies, Drive, [place], second [address] [place] [address], [id number], trimesterPreg 120[place], [address]. [place] care for patient Freddie, tel:+ tel:+316 w recurrent preg [place], 4631780 883976 loss, unsp 18[address], [id number] weeks [place]. gestation of tel:+06-25 [phone] Associates Freddie Suprvsn of preg w Nov-3 Sobbing Referring In Womens poor reprodctv or 0-201 Reggie. Provider: Basilio HOLLIDAY, obstet hx, first 7 700 [facility]3] PO Box triSupervision of [facility] G, 1522, other high risk Center [address], pregnancies, Drive, [place], [place], first [address], [id number], trimesterPreg 120[place], [address]. [place] care for patient Freddie, tel:+ tel:+ w recurrent preg CHARLES, 1705433 748662 loss, unsp 93[address], [id number] weeks [place]. gestation of tel:+06-25 [phone] Associates Freddie Suprvsn of preg w Nov-0 Sobbing Referring In Womens poor reprodctv or 6-201 Reggie. Provider: Basilio HOLLIDAY, obstet history, 7 700 [place] PO Box unsp Medical [place] L, 1522, triSupervision of Center [address] [place], other high risk Drive, Medical [place], pregnancies, Suite Center [id number], first 120, Drive US trimesterPreg Frazier [address], tel:+ care for patient Freddie SOTO, [place] [address], [place], [address]. loss, unsp [place]. tel: trimesterLess tel: [phone] than 8 weeks [phone] gestation of Associates Freddie Encounter for Oct-1 Sobbing Referring In Womens test, [place]. Provider: Basilio HOLLIDAY, result unknown 7 700 Tanya PO Box Medical [facility], 1522, Center [address] [place], [place], [address] [place], [id number], 120, [place], [address]. [place], tel:+ tel: [place], [phone], [place]. tel: [phone] Umesh Frazier Encounter for Oct-1 Sobbing In Womens test, 0- [place]. Basilio HOLLIDAY, result unknown 7 700 [facility] 1522, [place], [place], Suite [id number], 120, [place], tel: [place], 114, [place]. tel: [phone] Umesh Frazier Encounter for Oct-0 Sobbing Referring In Womens test, [place]. Provider: Basilio HOLLIDAY, result unknown 7 700 [facility], Center [address] [place], [place], [address] [place], [id number], 120, [place], [address]. [place] Freddie, tel: tel: [place], [phone], [place]. tel: [phone] Umesh Frazier Recurrent Jerardo-2 Garcia In Womens loss 9 Lois. Basilio HOLLIDAY, 7 700 [address] [facility] 1522, [facility], , Laith [place], 120, [id number], [place], [place], tel: [phone] , [place]. tel: [phone] Umesh Frazier Complete or unsp Feb-1 Garcia Referring In Womens spontaneous 3-201 Lois. Provider: Basilio HOLLIDAY, without 7 700 Tanya PO Box complicationCompl [facility] G, 1522, ete or unsp Center [address], spontaneous , [place], [place], without 120, [place], , [place], [address]. [place], tel:+ tel:[phone] , [place]. tel:+06-25 [phone] Umesh Frazier Complete or unsp Jun- Garcia Referring In Womens Ultrasound spontaneous - Lois. Provider: Basilio HOLLIDAY, without 7 700 Tanya PO Box [id number] [facility] , 1522, weeks gestation Center [address], of , Laith [place]ries, [place], 120, [place], , [place], [address]. [place], tel:+ tel:[phone] , [place]. tel: [phone] Umesh Frazier Threatened Jun- Garcia Referring In Womens [place]. Provider: Basilio HOLLIDAY, 7 700 Tanya PO Box [facility] Cole , 1522, Center [address], CHAR[place], 120, [place], , [place], [address]. [place], tel:+ tel:[phone] , [place]. tel: [phone] Umesh Frazier Irregular b-0 Garcia Referring In Womens MensesPersonal - Lois. Provider: Basilio HOLLIDAY, history of comp 7 700 Tanya PO Box of preg, chldbrth [facility] , 1522, and the puerp Center [address], Laith Dev[place], [place], 120, [place], , [place], [address]. [place], tel:+ tel: [phone] , [place]. 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 Provider: Basilio HOLLIDAY, (routine) w/o abn 6 700 Tanya PO Box findingsPap Smear [facility] , 1522, Screening, Center [address] [place], CervixPap Smear , CHARLES Nelson, Screening, Cervix 120, [place], [id number], [place], [address]. [place], tel: tel: [phone] , [place]. tel: [phone] Umesh Frazier Darrian Referring In Womens 7-201 [place]. Provider: Health [place], 4 700 Gracy PO Box Medical [place] 1522, [facility], [facility] Dr Nan, [facility], 120, [place] [id number], [facility], CHAR[place], Freddie, tel: [phone] [place], , [place]. [id number]. tel: tel: [phone] Umesh Frazier Supriya Referring In Womens 8-201 [place]. Provider: Health [place], 4 700 [place]acy PO Box Medical [place] 1522, [facility], [facility] [address] Nan, [facility], 120, [place] [id number], [facility] 120, CHARLES, Freddie, tel:[phone] [place], , [place]. [id number]. tel: tel: [phone] Umesh Frazier Holdeman In Womens 6-201 [place]. Health [place], 2 700 Box Medical [address], [place] [address], [facility], 120, [id number], [place], [place], tel: [phone] , [place]. tel: [phone] Umesh Frazier Holdeman In Womens 8-201 [place]. Health [place], 1 700 PO Box Medical [address], [place] [address] Nan, [facility] [place], 120, [id number], [place], [place], tel: [phone] , [place]. tel: [phone] Family History Family Member Diagnosis Age At [...] republican ID Authorization(s) BCBS Out Of [place] [id number] BCBS Out Of [place] [id number] BCBS Out Of [place] [id number] [employer]BS Out Of [place] [id number] Social History Type Description Quantity Date Captured [...] Bhumika Ghotra BOOKED Future Order: Radiology Order Complete OB Ultrasound > 14 Ordered Weeks ([id number]) Future Order: Radiology Order Ultrasound OB, Transvaginal ([id number] ) Ordered Future Order: Lab Order Pap [...]
[2017-10-19 14:46] VITALS: BMI 24.1
[2017-10-19] MEDS ORDERED: ONDANSETRON 4 MG/2 ML INJECTION IVP ONE (15:09)
[2017-10-19] MEDS ORDERED: ONDANSETRON ODT 4 MG TABLET PO PRN (15:13)
[2017-10-19] MEDS: LR 1,000 ML IV SCH ×2 (15:18→16:29)
[2017-10-19] MEDS ORDERED: FAMOTIDINE PB 20 MG/50 ML BAG IV ONE (15:26)
[2017-10-19] MEDS ORDERED: CALCIUM GLUCONATE 4.65mEq/10ml INJECTION IV PRN (15:26)
[2017-10-19] MEDS ORDERED: LIDOCAINE 1% (10mg/ml) 2mL INJ PF SDV ID PRN (15:26)
[2017-10-19] MEDS ORDERED: CITRIC ACID/SODIUM CITRATE 30ml PO PRN (15:26)
[2017-10-19] MEDS ORDERED: BETAMETHASONE 30 MG/5 ML INJECTION IM ONE (15:31)
[2017-10-19] MEDS ORDERED: MAGNESIUM SULFATE 6gm PREMIX 6 GM/100 ML BAG IV ONE (15:35)
[2017-10-19] MEDS ORDERED: METOCLOPRAMIDE 10mg/2ml INJECTION IVP ONE (15:45)
[2017-10-19] MEDS ORDERED: MAGNESIUM SULFATE DRIP 20 GM/500 ML BAG IV SCH (15:50)
[2017-10-19] MEDS ORDERED: CITRIC ACID/SODIUM CITRATE 30ml PO ONE (16:00)
[2017-10-19] MEDS ORDERED: CEFAZOLIN PREMIX (MC ONLY) 2 GM/50 ML BAG IV ONE (16:30)
--- NOTE | 2017-10-19 16:34 | Anesthesia Preoperative Report ---
Anesthesia Preoperative Record - Date and Time Date: 10/19/17 Preoperative Diagnosis: with preeclampsia Proposed Procedure: repeat csection NPO Since Date: 10/19/17 NPO Since Time: 09:00 (nausea and vomiting ) Allergies/Adverse Reactions: Allergies Allergy/AdvReac Type Severity Reaction Status Date / Time No Known Allergies Allergy Verified 10/19/17 16:10 - Vital Signs Height and Weight: Height 1.68 m Weight 67.807 kg Body Mass Index 24.1 - Medications Inpatient Medications: Current Medications Betamethasone Acet/Betameth SodPhos (Celestone Soluspan) 12 mg IM O ONE Stop: 10/19/17 15:32 Last Admin: 10/19/17 15:35 Dose: 12 mg Calcium Gluconate (Calcium Gluconate 4.65 Meq/10 Ml (1 Gram)) 4.65 meq IV O PRN Citric Acid/Sodium Citrate (Oracit) 30 ml PO PREOP ONE Stop: 10/19/17 16:01 Last Admin: 10/19/17 16:00 Dose: 30 ml Citric Acid/Sodium Citrate (Oracit) 30 ml PO Q2H PRN Lactated Ringer's (Lactated Ringers) 1,000 mls @ 999 mls/hr IV .Q1H1M LAURIE Last Admin: 10/19/17 16:29 Dose: 999 mls/hr Famotidine/Sodium Chloride (Pepcid Premix) 20 mg in 50 mls @ 100 mls/hr IV PREOP ONE Stop: 10/19/17 15:55 Last Infusion: 10/19/17 16:16 Dose: Infused Magnesium Sulfate (Magnesium Sulfate Drip) 20 gm in 500 mls @ 50 mls/hr IV .Q10H LAURIE PRN Reason: 2 G/HR Last Admin: 10/19/17 16:12 Dose: 2 g/hr, 50 mls/hr Magnesium Sulfate (Mag Sulf 6gm Premix) 6 gm in 100 mls @ 300 mls/hr IV O ONE Stop: 10/19/17 15:54 Last Infusion: 10/19/17 16:11 Dose: Infused Cefazolin Sodium/Dextrose (Kefzol Premix (Mc Only)) 2 gm in 50 mls @ 100 mls/ hr IV PREOP ONE Stop: 10/19/17 16:59 Last Infusion: 10/19/17 16:30 Dose: Infused Lidocaine HCl (Xylocaine-Mpf 1% Vial) 1 mg ID PRN PRN PRN Reason: IV Start Metoclopramide HCl (Reglan) 10 mg IVP PREOP ONE Stop: 10/19/17 15:46 Ondansetron HCl (Zofran Odt Tablet) 4 mg PO O PRN PRN Reason: Nausea &/or vomiting Last Admin: 10/19/17 15:35 Dose: 4 mg Home Medications: Home Medications Medication Instructions Recorded Confirmed Type Vits W-Ca,Fe,Fa(<1MG) 1 tab PO DAILY #0 12/25/12 10/19/17 History () Acetaminophen [Tylenol] 500 mg PO Q5H PRN 10/19/17 10/19/17 History - Medical History Respiratory: DENIES: Asthma, Bronchitis, Pneumonia, Upper Respiratory Infection Cardiovascular: Reports: Heart Murmur (MVP), Hypertension (gestational) DENIES: High Cholesterol Gastrointestional: Reports: Nausea or Vomiting Present (with ) DENIES: Hepatitis, Ulcer Neuro/Musculoskeletal: Reports: Headaches (with ) Denies: Back Problems, Cerebrovascular Accident, Muscle Weakness, Syncope Other History: Reports: Now DENIES: Anesthesia Reactions (nausea) - Surgical History Musculoskeletal Surgery/Tx: Reports: Other (fibroid removed from breast) Reproductive Surgery/Treatment: Reports: Section (x2) Anesthesia Reactions: Nausea and Vomiting - Social History Smoking Status: Never smoker Substance Use Type: does not use Alcohol Intake Frequency: holidays/special occasions only - Pertinent Findings Laboratory: CBC and BMP 10/19/17 14:35 10/19/17 14:35 BMP 10/19/17 14:35 Sodium 140 Potassium 3.9 Chloride 111 H Carbon Dioxide 19 L BUN 16.0 Creatinine 0.7 Glucose 71 Calcium 8.7 Liver Function 10/19/17 Range/Units 14:35 Total Bilirubin 0.30 (0.20-1.30) MG/DL AST 23 (14-36) U/L ALT 14 (1-35) U/L Alkaline Phosphatase 135 H (38-126) U/L Albumin 3.4 L (3.5-5.0) g/dL - Physical Exam Respiratory Exam: Present: lungs clear, bilateral breath sounds equal Cardiovascular Exam: Present: regular rate and rhythm - Airway Assessment Mallampati Score: I TMD: 3 Fingerbreadths Neck Extension: good Overall Assessment: no airway concerns - ASA ASA Score: 3, E - Plan Regional/Trunk Block: Spinal - Discussion Discussion: Discussed risks/options/alternatives of anesthesia and questions answered. Patient consents. Nursing pain assessment noted. Attestation Statement: Prior to the delivery of any anesthetic medication, I examined the patient, developed the plan, obtained the patient's consent and discussed the risk and benefits of the procedure with the patient/guardian. - Additional Information Seen by Anesthesia: Yes
[2017-10-19] MEDS ORDERED: FentaNYL 250 MCG/5 ML INJECTION ONE (16:40)
[2017-10-19] MEDS ORDERED: MORPHINE SULFATE PF 5mg/10ml INJ (Duramorph) ONE (16:40)
[2017-10-19] MEDS ORDERED: BUPIVACAINE 0.75%/DEXTROSE 8.5% SPINAL 2 ML AMPULE IJ ONE (16:41)
[2017-10-19] MEDS ORDERED: EPHEDRINE 50mg/ml INJECTION ONE (16:41)
[2017-10-19] MEDS ORDERED: SALINE FLUSH 10ml SYRINGE ONE (16:42)
[2017-10-19] MEDS ORDERED: LIDOCAINE 2% (100mg/5mL) 5ml PF SDV ONE (16:47)
[2017-10-19] MEDS ORDERED: ONDANSETRON 4 MG/2 ML INJECTION ONE (16:58)
[2017-10-19] MEDS ORDERED: NALOXONE 2 MG/2 ML INJECTION PFS IVP PRN (17:28)
[2017-10-19] MEDS ORDERED: NALBUPHINE 10 MG/ML INJECTION IVP PRN (17:28)
[2017-10-19] MEDS ORDERED: ONDANSETRON 4 MG/2 ML INJECTION IVP PRN (17:28)
[2017-10-19] MEDS ORDERED: METOCLOPRAMIDE 10mg/2ml INJECTION IVP PRN (17:28)
[2017-10-19] MEDS ORDERED: OXYTOCIN BOLUS BAG 30 UNIT/500 ML ML IV SCH (17:45)
[2017-10-19] MEDS ORDERED: CALCIUM CARBONATE Chewable 500mg TABLET PO PRN (18:04)
[2017-10-19] MEDS ORDERED: HYDROCORTISONE 2.5% CREAM 30gm RECTALLY PRN (18:04)
[2017-10-19] MEDS ORDERED: DiphenhydrAMINE 25 MG CAPSULE PO PRN (18:04)
--- NOTE | 2017-10-19 18:11 | Operative Note ---
Operative Note - Date of Operation Date of Operation: 10/19/17 - General : 7 Para: 2 Expected Date of Delivery: 11/11/17 Estimated or Known Gestational Age (weeks): 36 Estimated or Known Gestational Age (days): 5 - Preoperative Diagnosis Previous Section Preoperative Diagnosis: Preeclampsia with severe features - Postoperative Diagnosis Postoperative Diagnosis: Same - Procedure Repeat - Surgeon Surgeon: Reggie Baird DO - Outreach Team Member OB Outreach Team Member: Shira Sanchez MD - Anesthesia Anesthesia Provider: Maulik Longoria CRNA Anesthesia Type: Spinal - Estimated Blood Loss Estimated Blood Loss:: 700 - Findings Findings: viable male - APGARS : 69 - Weight [place] Weight (grams): 2774 - Name [place] Name: Bruce - Indications Indications: Preeclampsia with severe features
[2017-10-19] MEDS ORDERED: D5LR 1,000 ML IV SCH (18:15)
[2017-10-19] MEDS ORDERED: OXYTOCIN DRIP 30 UNIT/500 ML ML IV SCH (18:15)
[2017-10-19] MEDS ORDERED: SIMETHICONE 80 MG CHEWABLE TABLET PO SCH (18:30)
[2017-10-20] MEDS: MAGNESIUM SULFATE DRIP 20 GM/500 ML BAG IV SCH ×2 (00:20→11:08)
[2017-10-20] MEDS: ACETAMINOPHEN 500 MG TABLET PO PRN ×2 (00:25→06:55)
[2017-10-20] MEDS: LR 1,000 ML IV SCH (02:39)
--- NOTE | 2017-10-20 06:41 | Anesthesia Postoperative Note ---
- Date and Time Date: 10/20/17 Time: 06:45 - Status Patient Participated in Evaluation: Patient Participated in Person Vital Signs: Temperature 98 F 10/20/17 03:15 Pulse Rate 71 10/20/17 06:00 Respiratory Rate 16 10/20/17 06:00 Blood Pressure 112/67 10/20/17 06:00 Pulse Oximetry 100 10/20/17 06:00 Respiratory Function: Airway Patent Cardiovascular Function: Regular Pulse EKG: Sinus Rhythm Mental Status: Alert and Oriented Pain Intensity: 2 Hydration: Taking PO Fluids Complications During Recover: None Apparent - Follow-Up Instructions Instructions: Per Surgeon
[2017-10-20] MEDS: SIMETHICONE 80 MG CHEWABLE TABLET PO PRN ×3 (06:56→19:13)
--- NOTE | 2017-10-20 07:28 | OB/GYN Progress Note ---
OB-PP Progress Note - General PPD1 Maternal Group B Strep: Negative Maternal blood type: O+ Maternal Rubella Status: Immune - Subjective Date: 10/20/17 Lochia: Minimal Pain: controlled Voiding: haq still in place Nausea or Vomiting Present: No Subjective Comments: Most of the pain is in her right shoulder. - Objective Vital Signs: Last Vital Signs Temp 98 F 10/20/17 03:15 Pulse 71 10/20/17 06:00 Resp 16 10/20/17 06:00 BP 112/67 10/20/17 06:00 Pulse Ox 100 10/20/17 06:00 Urine Output: good General: alert and oriented Abdomen: fundus firm, non-tender, soft, non-distended Incision: clean, no erythema, dry Extremities: non-tender Laboratory: Laboratory Results - last 24 hr 10/19/17 10/19/17 10/19/17 14:25 14:35 14:35 WBC 10.7 RBC 4.29 Hgb 12.4 Hct 37.0 MCV 86.2 MCH 28.9 MCHC 33.5 RDW Std Deviation 41.3 Plt Count 160 MPV 12.3 Turbidity < 20 Sodium 140 Potassium 3.9 Chloride 111 H Carbon Dioxide 19 L Anion Gap 10 BUN 16.0 Creatinine 0.7 GFR Calculation 97 BUN/Creatinine Ratio 23 Glucose 71 Calculated Osmolality 268 Calcium 8.7 Total Bilirubin 0.30 Icterus Index < 2 AST 23 ALT 14 Alkaline Phosphatase 135 H Total Protein 6.3 Albumin 3.4 L Globulin 2.9 Albumin/Globulin Ratio 1.2 Specimen Hemolysis < 15 Ur Random Creatinine 132.8 U Random Total Protein 40.0 H Protein/Creatinin Ratio 0.30 Blood Type Antibody Screen 10/19/17 10/20/17 10/20/17 14:35 05:18 05:18 WBC 17.0 H D RBC 4.08 Hgb 12.0 Hct 35.0 L MCV 85.8 MCH 29.4 MCHC 34.3 RDW Std Deviation 40.9 Plt Count 143 MPV 12.2 Turbidity < 20 Sodium 132 L D Potassium 4.0 Chloride 103 D Carbon Dioxide 22 Anion Gap 7 BUN 8.0 D Creatinine 0.6 L GFR Calculation 116 BUN/Creatinine Ratio 13 Glucose 142 H Calculated Osmolality 255 L Calcium 6.2 L D Total Bilirubin 0.30 Icterus Index < 2 AST 27 ALT 15 Alkaline Phosphatase 110 Total Protein 5.5 L Albumin 2.8 L Globulin 2.7 Albumin/Globulin Ratio 1.0 L Specimen Hemolysis < 15 Ur Random Creatinine U Random Total Protein Protein/Creatinin Ratio Blood Type O Positive Antibody Screen Negative - Assessment (1) S/P repeat low transverse Status: Acute (2) Severe pre-eclampsia, delivered, current hospitalization Comment: Diuresing well Status: Acute - Plan Plan: routine care, magnesium (until 24 hours PP)
--- NOTE | 2017-10-20 11:35 | Operative Note ---
DATE OF SERVICE 10/19/2017 PREOPERATIVE DIAGNOSIS 1. Prior section. 2. Preeclampsia with severe features. 3. 36 weeks and 5 days gestational age based off of first trimester ultrasound. POSTOPERATIVE DIAGNOSIS Same--delivered. PROCEDURE Repeat low transverse section via Pfannenstiel incision. SURGEON Dr. Reggie Baird, BOOKMOBILE CLERK Shira Sanchez MD ANESTHESIA PROVIDER Maulik Longoria, WON ANESTHESIA TYPE Spinal. ESTIMATED BLOOD LOSS 700 mL FINDINGS A viable male in cephalic presentation with Apgars of 6/9, a weight of 2774 g and the name of Bruce Ghotra. INDICATIONS FOR PROCEDURE Preeclampsia with severe features. Bhumika presented to Maternal Child at [facility] at 36 and 5 weeks gestational age based on a first trimester ultrasound with worsening blood pressures. Her blood pressures were noted to be in the mild range and her proteinuria was noted to be 300. Her platelets were 160 and the remainder of her labs were normal, but she did report unrelenting headache which had not improved over the last couple of days along with vision changes consistent with scotoma. We have been watching Bhumika closely secondary to gestational hypertension and a history of preeclampsia with her prior two pregnancies. Her most recent urine protein evaluation was negative for preeclampsia and today was positive. For this reason she was diagnosed with preeclampsia with severe features. She was given a dose of corticosteroids and disposition to delivery. Risks, benefits and alternatives to the procedure were discussed prior to the case. Questions were elicited and answered and the patient desired to proceed. DESCRIPTION OF PROCEDURE The patient was taken to the operating room where spinal anesthesia was obtained without difficulty. She was then prepped and draped in the dorsal supine position with a leftward tilt. After Allis clamp check was performed and anesthesia was noted to be adequate, time-out was performed. The patient had received preoperative antibiotics. A Pfannenstiel skin incision was made and carried through the underlying layers to the fascia. The fascia was then incised in the midline. The fascial incision was then extended laterally with the Eller scissors. The superior aspect of the fascial incision was grasped with a Bear clamp, elevated and then the rectus muscle dissected off sharply with the scalpel. Attention was then turned to the inferior aspect of the incision which was grasped with a Bear clamp, elevated and dissected off sharply with the Eller scissors. At this time the rectus muscles were sharply in the midline with the scalpel. The peritoneum was visualized, identified, grasped with a Evelyne clamp, elevated and entered sharply with the Metzenbaum scissors. The peritoneal incision was then extended superiorly and inferiorly with good visualization of the bladder. The bladder blade was inserted and the vesicouterine peritoneum was identified, grasped with the pickups and entered sharply with the Metzenbaum scissors. The vesicouterine peritoneum incision was then extended laterally and bladder flap was created digitally. The uterine incision was then made with a scalpel in the transverse fashion. The uterine incision was extended bluntly with cephalad-caudad traction. Amniotomy was performed and the was delivered. The 's head was delivered. A tight nuchal was noted. Nose and mouth were suctioned and the was delivered. The cord was clamped and cut and the infant was given to the science education professor who was waiting. At this time the uterus was delivered manually and sent to Pathology. The uterus was exteriorized and cleared of all clot and debris and the uterine incision was repaired with 0 Monocryl in a running locked fashion. Excellent hemostasis was noted. The posterior cul-de-sac was cleared of all clot and debris and the uterus was returned to the abdomen. The gutters were cleared of all clot and debris and the peritoneum was then repaired with 3-0 Monocryl in a running fashion. Cautery was used to obtain excellent hemostasis on the rectus muscles and the fascial incision was closed with 0 Vicryl in a running fashion. At this time the skin was closed with 4-0 Monocryl and Dermabond. The patient tolerated the procedure well. Sponge, lap and needle counts were correct x 2 and the patient was taken to Recovery Room in stable condition. KIERRA
[2017-10-20] MEDS: Oxycodone/Acetaminophen 5/325 1 TAB PO PRN ×3 (12:38→21:51)
[2017-10-20] MEDS: DOCUSATE CALCIUM 240 MG CAPSULE PO SCH (12:39)
[2017-10-20] MEDS ORDERED: ONDANSETRON ODT 4 MG TABLET PO PRN (20:21)
[2017-10-21] MEDS: SIMETHICONE 80 MG CHEWABLE TABLET PO PRN ×4 (01:02→19:03)
[2017-10-21] MEDS: Oxycodone/Acetaminophen 5/325 1 TAB PO PRN ×5 (02:38→19:59)
--- NOTE | 2017-10-21 08:27 | OB/GYN Progress Note ---
OB-PP Progress Note - General PPD2 POD:: POD2 Maternal Group B Strep: Negative Maternal blood type: O+ Maternal Rubella Status: Immune - Subjective Date: 10/21/17 Lochia: Minimal Pain: controlled Voiding: voiding Nausea or Vomiting Present: No - Objective Vital Signs: Last Vital Signs Temp 98.3 F 10/21/17 05:00 Pulse 66 10/21/17 05:00 Resp 16 10/21/17 07:25 BP 142/97 H 10/21/17 05:00 Pulse Ox 98 10/21/17 05:00 Urine Output: good General: alert and oriented Cardiovascular: regular rate,rhythm Respiratory: non-labored Abdomen: fundus firm Incision: normal, clean, dry, intact Extremities: non-tender Edema: none Laboratory: Laboratory Results - last 24 hr 10/20/17 10/20/17 16:49 16:49 WBC 16.4 H RBC 4.07 Hgb 12.1 Hct 34.9 L MCV 85.7 MCH 29.7 MCHC 34.7 RDW Std Deviation 41.7 Plt Count 174 MPV 11.7 Immature Gran % (Auto) Not performed Neut % (Auto) Not performed Lymph % (Auto) Not performed Lynn % (Auto) Not performed Eos % (Auto) Not performed Baso % (Auto) Not performed Neut # (Auto) Not performed Lymph # (Auto) Not performed Lynn # (Auto) Not performed Eos # (Auto) Not performed Baso # (Auto) Not performed Abs Immat Gran (auto) Not performed Neutrophils % (Manual) 91.0 H Lymphocytes % (Manual) 5.0 L Monocytes % (Manual) 4.0 Neutrophils # (Manual) 14.9 H Lymphocytes # (Manual) 0.8 L Monocytes # (Manual) 0.7 RBC Morph Comment Normal Turbidity < 20 Sodium 134 Potassium 3.8 Chloride 104 Carbon Dioxide 24 Anion Gap 6 BUN 9.0 Creatinine 0.7 GFR Calculation 97 BUN/Creatinine Ratio 13 Glucose 110 Calculated Osmolality 258 L Calcium 6.2 L Total Bilirubin 0.20 Icterus Index < 2 AST 30 ALT 14 Alkaline Phosphatase 118 Total Protein 5.8 L Albumin 3.1 L Globulin 2.7 Albumin/Globulin Ratio 1.1 Specimen Hemolysis < 15 - Assessment (1) S/P repeat low transverse Status: Acute (2) Severe pre-eclampsia, delivered, current hospitalization Comment: Diuresing well Status: Acute - Assessment Assessment: Repeat C/S, Preeclampsia - Plan Plan: routine care
[2017-10-21] MEDS: DOCUSATE CALCIUM 240 MG CAPSULE PO SCH (09:46)
[2017-10-21 12:54] VITALS: RESP 16
[2017-10-21] MEDS: Oxycodone *IR* 5 MG TABLET PO PRN (20:11)
[2017-10-22] MEDS: Oxycodone/Acetaminophen 5/325 1 TAB PO PRN ×2 (03:49→16:18)
[2017-10-22] MEDS: Oxycodone *IR* 5 MG TABLET PO PRN (12:15)
[2017-10-22] MEDS: DOCUSATE CALCIUM 240 MG CAPSULE PO SCH (14:46)
[2017-10-22 16:23] VITALS: BP 146/96; PULSE 76; TEMP 97.9; O2SAT 98
== END 2017-10-22 17:11 | disposition home or self-care (01) | DRG 765 ==
LOC: OBOBS 14:10 → MC 14:11
PROVIDERS: ADMIT Obstetrics & Gynecology; ATTEND Obstetrics & Gynecology